=== PATIENT | male | born 1950 | race Caucasian/White ===

== ENCOUNTER → 2018-10-12 09:27 | Outpatient (CLI) | payer MEDICARE, OTHER, SELFPAY ==
[2018-10-12 08:36] VITALS: BMI 37.0
[2018-10-12 10:15] LABS: Absolute Lymphocyte Count 2.19 X10^3/ul (0.83-4.51); Absolute Neutrophil Count 5.7 X10^3/uL (2.0-7.7); Basophil# 0.06 X10^3/uL; Basophil% 0.7 % (0-1); Eosinophil# 0.18 X10^3/uL; Eosinophils% 2.1 % (0-5); Hematocrit 45.5 % (40-54); Hemoglobin 15.4 g/dl (13.0-16.5); Lymphocyte # 2.19 X10^3/ul (4.0); Lymphocyte % 25.1 % (19-41); Mean Corp Hgb Conc 33.8 g/gl (32-36); Mean Corpuscular Hgb 32.6 pg (27.0-32.0); Mean Corpuscular Volume 96.4 fL (80-94); Mean Platelet Vol. 12.3 fl (6.2-12.0); Monocyte# 0.58 X10^3/uL; Monocyte% 6.7 % (0-10); Neutrophil # 5.68 X10^3/uL (2.7-7.7); Neutrophil % 65.1 % (47-70); Platelet Count 205 K/mm3 (150-450); RBC Distribution Width CV 13.9 % (11.6-14.6); RBC Distribution Width SD 49.1 fl (35.1-43.9); Red Blood Count 4.72 M/mm3 (4.6-6.2); White Blood Count 8.7 K/mm3 (4.4-11.0)
[2018-10-12 10:22] LABS: POSITIVE COUNT NO; POSITIVE DIFFERENTIAL NO; POSITIVE MORPHOLOGY NO
[2018-10-12 10:54] LABS: AST(SGOT) 18 U/L (15-37); Alanine Aminotransfer ALT/SGPT 30 U/L (16-61); Albumin, Serum 3.7 g/dL (3.2-5.0); Alkaline Phosphatase 87 U/L (45-117); Anion Gap 9 (5-15); BUN 24 mg/dL (7-18); BUN/Creat Ratio 19.8 RATIO (10-20); Bilirubin, Direct 0.11 mg/dL (0.00-0.30); Chloride 108 mmol/L (98-107); Cholesterol 127 mg/dL (200); Creatinine, Serum 1.21 mg/dL (0.70-1.30); EST Glomerular Filtration Rate 63 mL/min (>60); Est Glom Filt Rate - Afr Amer 76 mL/min (>60); Globulin 3.8 g/dL (2.2-4.2); Glucose 100 mg/dL (74-106); High Density Lipoprotein 40 mg/dL; Potassium 4.3 mmol/L (3.5-5.1); Protein, Total 7.5 g/dL (6.4-8.2); Sodium Level 140 mmol/L (136-145); Thyroid Stim Hormone (TSH) 2.14 uIU/mL (0.358-3.74); Triglycerides 82 mg/dL; Very Low Density Lipoprotein 16 mg/dL (5-40)
== END ==
PROVIDERS: Referring Provider Physician Assistant Medical; Visit Provider Physician Assistant Medical
DX: I10 Essential (primary) hypertension (principal); E78.00 Pure hypercholesterolemia, unspecified; I48.0 Paroxysmal atrial fibrillation; I43 Cardiomyopathy in diseases classified elsewhere
CPT/HCPCS: 36415; 80053; 80061; 82248; 84443; 85025

== ENCOUNTER 2021-08-20 19:40 | Emergency (ER) | payer MEDICARE, OTHER, SELFPAY ==
[2021-08-20 19:41] VITALS: BP 125/112; PULSE 71; RESP 18; TEMP 37.1; O2SAT 95; BMI 25.0
--- NOTE | 2021-08-20 20:23 | EKG12_ITS ---
Test Reason : WEAKNESS Blood Pressure : / mmHG Vent. Rate : 149 BPM Atrial Rate : 159 BPM P-R Int : 000 ms QRS Dur : 132 ms QT Int : 314 ms P-R-T Axes : 000 076 -09 degrees QTc Int : 494 ms Atrial fibrillation Right bundle branch block T wave abnormality, consider inferior ischemia Abnormal ECG Confirmed by DILEEP COHEN, LYDIA ([id number]), editor continuity and script DAVON SHORT ([id number]) on 08/25/2021 8:52:53 AM Referred By: Confirmed By:BRENDA FALK MD
--- NOTE | 2021-08-20 20:23 | CT_ITS ---
We are attempting to reach an attending provider to discuss findings. An addendum with communication details will be sent when the communication is complete. EXAM: CT HEAD WITHOUT INTRAVENOUS CONTRAST CLINICAL INDICATION: Neuro deficit, acute, stroke suspected TECHNIQUE: Multiple axial images were obtained of the head without intravenous contrast. This CT exam was performed using one or more of the following dose reduction techniques: automated exposure control, adjustment of the mA and/or kV according to patient size, and/or use of iterative reconstruction technique. This report was created using [employer] report LiveProfile technology. COMPARISON: None. FINDINGS: BRAIN AND EXTRA-AXIAL SPACES: Diffuse cerebral edema overlying the left frontal parietal lobe and inferior left frontal lobe. Findings concerning for underlying mass. CT with IV or MRI with gadolinium is recommended to evaluate. No intra- or extra-axial hemorrhage. No evidence of acute infarct. There is preservation of the abrams/white matter interface. Posterior fossa structures are unremarkable. Ventricles are appropriate for age. No hydrocephalus. Basal cisterns are patent. BONES/JOINTS: Degenerative changes of the mandibular condyles. No discrete lytic or blastic abnormalities. SINUSES: Unremarkable as visualized. Clear. MASTOID AIR CELLS: Unremarkable. Clear. ORBITS: Visualized globes, extraocular muscles, optic nerves and retrobulbar fat appear unremarkable. called CT/STROKE Brain/Head without Cont IMPRESSION: Diffuse cerebral edema overlying the left frontal parietal lobe and inferior left frontal lobe. Findings concerning for underlying mass. CT with IV or MRI with gadolinium is recommended to evaluate. Electronically Signed: Nikita Rangel MD at 21:10 EDT ,
--- NOTE | 2021-08-20 20:25 | ED.VIS.STROK ---
HPI History of Present Illness Chief Complaint: Weakness Informant: patient and EMS Onset/Context/Timing Onset: Weeks (1-2) Context: Gradual Onset Timing: Continuous Quality and Location: Positive for Difficulty with Ambulation and - (Right foot drop) Current Severity: Moderate Maximum Severity: Moderate Worsened by: Unknown Relieved by: Nothing Associated Symptoms Associated Symptoms: Positive for Headache (Mild off-and-on bifrontal); Negative for Nausea, Vomiting and Chest Pain Narrative Narrative: Patient states he has had some redness and swelling gradual in onset without any obvious etiology of his right lower leg near his ankle, he has been progressing total for 2 weeks. For the last week or so he has had trouble lifting his foot, dorsiflexing it, and it also feels numb, the dorsum and plantar aspects. Now for the last 3 days because of this latter symptom, he is unable to stand or walk and has been having family come and help him now presents to the emergency department to have it all evaluated. He denies any generalized symptoms including fevers or chills. He states other than his right lower leg, he feels fine. [facility] Medical History (Updated 08/20/21 @ 23:[address] Charbel Parra MD) Abnormal stress test Cardiomyopathy in disease classified elsewhere Chronic diastolic heart failure Edema Essential (primary) hypertension Hyperlipidemia Nondependent alcohol abuse, continuous drinking behavior Paroxysmal atrial fibrillation Tobacco abuse Home Medications aspirin 325 mg tablet 325 mg PO QDAY tab 07/20/17 [History Last Taken Unknown] citalopram 20 mg tablet 20 mg PO DAILY #90 tab 12/15/19 [Rx Last Taken Unknown] lisinopril 10 mg tablet 10 mg PO QDAY #90 tab 11/25/20 [Rx Last Taken Unknown] carvedilol 25 mg tablet See Rx Instructions .ROUTE .COMPLEX #180 tab 11/28/20 [Rx Last Taken Unknown] flecainide 50 mg tablet See Rx Instructions .ROUTE .COMPLEX #180 tab 11/28/20 [Rx Last Taken Unknown] atorvastatin 40 mg tablet 40 mg PO QDAY #90 tab 01/30/21 [Rx Last Taken Unknown] Allergy/AdvReac Type Severity Reaction Status Date / Time No Known Allergies Allergy Verified 08/20/21 19:47 Family History Mother CAD (coronary artery disease) Diabetes Hypertension HLD (hyperlipidemia) Father Cancer Surgical History History of left heart catheterization (11/14/12) History of tonsillectomy Social History Smoking Status: Current every day smoker tobacco type: cigarettes alcohol intake: former substance use type: does not use caffeine: Yes Type: coffee what type of physical activity do you participate in: none seatbelt use: always do you feel safe at home: Yes ROS ROS ED Constitutional Constitutional ED: Denies chills or fever(s) Eyes Eyes: Denies change in vision or diplopia ENT ENT ED: Denies rhinorrhea or sore throat Cardiovascular Cardiovascular: Denies chest pain or palpitations Respiratory/Chest Respiratory/Chest: Denies cough or dyspnea Gastrointestinal Gastrointestinal: Denies abdominal pain, diarrhea, nausea or vomiting Genitourinary Genitourinary ED: Denies dysuria or hematuria Musculoskeletal Musculoskeletal: Reports extremity pain and other Details: Edema right lower lower extremity/foot ; Denies back pain or neck pain Integumentary Reports as per HPI, erythema and rash; Denies abscess Neurologic Neurologic: Reports as per HPI, numbness and weakness; Denies headache(s) Psychiatric Psychiatric: Denies anxiety or suicidal thoughts EXAM Physical Exam Const Vital Signs: 08/20/21 19:41 08/20/21 19:58 08/20/21 20:54 Temperature 98.7 F Temperature Source Temporal Pulse Rate 71 Respiratory Rate 18 Respiratory Effort Normal Non-Labored Blood Pressure 125/112 H Blood Pressure Mean 116 Pulse Ox 95 Oxygen Delivery Method Room Air Room Air 08/20/21 20:55 08/20/21 22:17 08/20/21 22:22 Temperature Temperature Source Pulse Rate 150 H 132 H Respiratory Rate 18 Respiratory Effort Blood Pressure 84/61 L Blood Pressure Mean 68 Pulse Ox 94 Oxygen Delivery Method Room Air 08/20/21 22:30 08/20/21 23:10 Temperature Temperature Source Pulse Rate 131 H Respiratory Rate 20 H Respiratory Effort Blood Pressure 90/54 L 104/70 Blood Pressure Mean 66 81 Pulse Ox 95 Oxygen Delivery Method Room Air Positive well nourished, well developed and unkempt General Appearance ED: unkempt, well developed and NAD HEENT Reports moist mucous membranes normocephalic and atraumatic Eyes PERRL and EOMs intact bilaterally Neck full ROM and supple Resp normal respiratory effort and clear to auscultation bilaterally Cardio regular rate, regular rhythm and no murmurs GI non-tender and non-distended Auscultation: normoactive bowel sounds Palpation: soft Back/Spine no CVA tenderness General Back: other FROM Extremity Extremity Narrative: Patient has what appears to be a localized cellulitis anterior lateral distal aspect of the right lower leg, some erythema is into the foot as well but not as indurated or deeply erythematous as where the small wound is on the leg above the ankle. This wound and the surrounding erythema is tender. There is no abscess or expressible discharge. No subcutaneous emphysema. General Extremety ED: Yes edema and tenderness; Negative for pulses abnormal General Extremity: edema right lower extremity moderate (Distal leg and into foot); Negative for pulses abnormal Neuro oriented x3 and CN's II-XII intact bilaterally Neuro Narrative: Patient is barely able to dorsiflex his right foot, and incompletely. There is decreased sensation in the right foot as well. Otherwise his neurologic exam is normal. Toes are downgoing bilaterally. No clonus. Normal reflexes otherwise. Sensorium / Orientation: awake and alert Psych Appearance: unkempt Skin no rashes or lesions noted and no wounds STROKE Vital Signs/Narrative: Vital Signs Temp Pulse Resp BP Pulse Ox 08/20/21 23:10 131 H 20 H 104/70 95 08/20/21 22:30 90/54 L 08/20/21 22:22 84/61 L 08/20/21 22:17 132 H 18 94 08/20/21 20:55 150 H 08/20/21 19:41 98.7 F 71 18 125/112 H 95 NIHSS Initial: 1a Level of Consciousness: 0 1b LOC Questions (Score 2 if aphasic/stupor): 0 1c LOC Commands (Only score 1st attempt): 0 2 Best Gaze (If aphasic, use reflexive mvmts.): 0 3 Visual: 0 4 Facial Palsy: 0 5 Motor Arm Right (UN = amputation/fusion): 0 5 Motor Arm Left: 0 6 Motor Leg Right: 0 6 Motor Leg Left: 0 7 Limb ataxia (Only + if out of proportion): 0 8 Sensory (Aphasia/stupor=0 or 1, coma=2): 1 9 Best Language: 0 10 Dysarthria (mute, coma=2, intubated=UN): 0 11 Extinction and Inattention (only scored if +): 0 Total Score: 1 MDM MDM MDM Narrative Medical decision making narrative: Septic work-up undertaken in addition to a CT of the head given the focal neurologic symptoms in his right lower extremity. CT shows cerebral edema on the left side of his brain without an obvious etiology, certainly this could be causing his foot drop. Patient is here and having these results when MRI is not available so I sent him for CT with contrast, it is consistent with a mass in the high parietal lobe. With the acute neurologic deficit that is associated with his massive edema, he was given IV Decadron, and he will require transfer since we do not have neurosurgery here. Initially when he presented, his blood pressure was 125 systolic with a pulse of 71, he has history of paroxysmal atrial fibrillation and during his visit when he went into rapid A. fib and it persisted, and his blood pressure dropped into the 80s. He was given fluids and is started coming up, and brennan to a systolic of 104 after 1.5 L of fluid, and his heart rate is in the 120s-130s. Therefore I gave him digoxin 250 mg IV bolus, he has not been on digoxin prior to this. He states clinically he does not feel his heart racing, and he feels fine just like he did before being in A. fib and he is keenly alert. My suspicion is that his hypotension is more related to his heart rate that it is his right leg infection, which I treated empirically with Ancef. Given the cerebral mass, I discussed with the patient and [facility]. Accepted by Dr. Chan, who accepted into the ICU and I also discussed with neurosurgery there who was agreeable to see him and advised MRI and metastatic work-up once he arrives. He also agreed with the Decadron 10 mg we gave him here. Lab Data Attestation: I reviewed the patient's lab results. Labs: Laboratory Results - last 24 hr 08/20/21 08/20/21 20:50 20:50 WBC 11.1 H RBC 4.81 Hgb 14.9 Hct 45.4 MCV 94.4 H MCH 31.0 MCHC 32.8 RDW Std Deviation 55.9 H RDW Coeff of [place] 16.0 H Plt Count 222 MPV 12.2 H Immature Gran % (Auto) 0.600 Neut % (Auto) 82.3 H Lymph % (Auto) 8.0 L [place] % (Auto) 7.7 Eos % (Auto) 1.0 Baso % (Auto) 0.4 Absolute Neuts (auto) 9.2 H Absolute Lymphs (auto) 0.89 Nucleated RBC % 0 Sodium 140 Potassium 3.9 Chloride 106 Carbon Dioxide 28.0 Anion Gap 6 BUN 16 Creatinine 1.19 Estim Creat Clear Calc 67.06 Est GFR (MDRD) Af Amer 77 Est GFR (MDRD) Non-Af 64 BUN/Creatinine Ratio 13.4 Glucose 115 H Calcium 9.6 Troponin I High Sens 8 Radiography Diagnostic Testing: Clinical Impression(s) from Imaging Studies Brain CT 08/20/21 20:23 IMPRESSION: Diffuse cerebral edema overlying the left frontal parietal lobe and inferior left frontal lobe. Findings concerning for underlying mass. CT with IV or MRI with gadolinium is recommended to evaluate. Electronically Signed: Nikita Rangel MD at 21:10 EDT , ADDENDUM: 08/20/217 IMPRESSION: Diffuse cerebral edema overlying the left frontal parietal lobe and inferior left frontal lobe. Findings concerning for underlying mass. CT with IV or MRI with gadolinium is recommended to evaluate. N.B. : The above Results were Read Back by Nikita Rangel MD to Dr. Aida MD, and understanding confirmed on 08/20/2021 21:10:44 (ET). Electronically Signed: Nikita Rangel MD at 21:10 EDT , Venous Duplex 08/20/21 20:32 IMPRESSION: There is no demonstrated deep venous thrombosis. Electronically Signed: Nikita Rangel MD at 21:33 EDT , Chest X-Ray 08/20/21 21:00 IMPRESSION: There are no acute findings. Electronically Signed: Nikita Rangel MD at 21:20 EDT , Brain CT 08/20/21 21:30 IMPRESSION: Enhancing left parietal mass with surrounding edema suggesting malignant neoplasm. No hemorrhage. Electronically Signed: Charbel Duncan MD at 23:26 EDT , EKG Initial EKG: Attestation: I personally reviewed and interpreted this EKG as follows: Interpretation: No Acute Injury Pattern, Atrial Fibrillation and RBBB Prior: Unchanged (With regards to RBBB) Stroke Documentation Questions Stroke Team Activated: No (Symptoms for 1 week or more) Was Patient considered for Endovascular Intervention?: No-CTA not indicated Discharge Plan Triage Chief Complaint: Weakness ED Provider: Charbel Parra Dx/Rx/DC Orders Clinical Impression: Cerebral mass, Foot drop, right, Cellulitis of leg, right, Paroxysmal atrial fibrillation with RVR Prescriptions: No Action aspirin 325 mg tablet 325 mg PO QDAY RF: 0 citalopram [Celexa] 20 mg tablet 20 mg PO DAILY Qty: 90 RF: 0 lisinopril 10 mg tablet 10 mg PO QDAY Qty: 90 RF: 3 flecainide 50 mg tablet See Rx Instructions .ROUTE .COMPLEX Qty: 180 RF: 3 carvedilol 25 mg tablet See Rx Instructions .ROUTE .COMPLEX Qty: 180 RF: 3 atorvastatin 40 mg tablet 40 mg PO QDAY Qty: 90 RF: 3 Primary Care Provider: Care Physician,No Primary Referrals: Care Physician,No Primary [Primary Care Provider] - Disposition Disposition: Acute Care Hospital Discharge Location: [facility]
--- NOTE | 2021-08-20 20:32 | US_ITS ---
STUDY: VENOUS DOPPLER ULTRASOUND - RIGHT LOWER EXTREMITY REASON FOR EXAM: Male, 70 years old. LEG PAIN AND SWELLING RT CALF SWELLING TECHNIQUE: Ultrasound evaluation of the deep vein system to include alexis-scale imaging and compression was performed. Alexis-scale imaging and Doppler sonographic evaluation, including duplex spectral analysis and qualitative color flow sonography, was performed. COMPARISON: None. FINDINGS: Common Femoral Vein: Normal compression, spontaneity and augmentation. Normal color Doppler. Common Femoral Vein/Greater Saphenous Junction: Normal compression, spontaneity and augmentation. Normal color Doppler. Superficial Femoral Proximal: Normal compression, spontaneity and augmentation. Normal color Doppler. Superficial Femoral Middle: Normal compression, spontaneity and augmentation. Normal color Doppler. Superficial Femoral Distal: Normal compression, spontaneity and augmentation. Normal color Doppler. Popliteal Vein: Normal compression, spontaneity and augmentation. Normal color Doppler. Posterior Tibial Vein: Normal compression, spontaneity and augmentation. Normal color Doppler. Peroneal Vein: Normal compression, spontaneity and augmentation. Normal color Doppler. There is no demonstrated deep venous thrombosis. US/Venous Duplex Imag/Limited/Uni IMPRESSION: There is no demonstrated deep venous thrombosis. Electronically Signed: Nikita Rangel MD at 21:33 EDT ,
[2021-08-20 20:55] VITALS: PULSE 150
--- NOTE | 2021-08-20 21:00 | RAD_ITS ---
STUDY: XR Chest 1 View 08/20/2021 8:51 PM REASON FOR EXAM: Male, 70 years old. CHEST PAIN Neuro deficit, acute, stroke suspected COMPARISON: None TECHNIQUE: XR Chest 1 View FINDINGS: There is no demonstrated pleural abnormality. Normal heart size. Normal mediastinum. Normal julián. Prominent appearing increased interstitial lung markings. Normal visualized pulmonary arteries. There is atherosclerotic calcification of the aortic arch with tortuosity. There are diffuse degenerative changes of the visualized thoracic spine. There is degenerative osteoarthritis of the bilateral shoulders. There is no demonstrated abnormality of the visualized soft tissue structures of the upper abdomen. RAD/Chest 1 View IMPRESSION: There are no acute findings. Electronically Signed: Nikita Rangel MD at 21:20 EDT ,
[2021-08-20 21:03] LABS: Absolute Lymphocyte Count 0.89 X10^3/uL (0.83-4.51); Absolute Neutrophil Count 9.2 X10^3/uL (2.0-7.7); Basophil# 0.04 X10^3/uL; Basophil% 0.4 % (0-1); Eosinophil# 0.11 X10^3/uL; Hematocrit 45.4 % (40-54); Hemoglobin 14.9 g/dL (13.0-16.5); Lymphocyte # 0.89 X10^3/ul (0.83-4.51); Mean Corp Hgb Conc 32.8 g/dL (32-36); Mean Corpuscular Volume 94.4 fL (80-94); Mean Platelet Vol. 12.2 fl (6.2-12.0); Monocyte# 0.86 X10^3/uL; Monocyte% 7.7 % (0-10); NRBC Flagged by Analyzer 0 % (0-5); Neutrophil # 9.15 X10^3/uL (2.7-7.7); Neutrophil % 82.3 % (47-70); Platelet Count 222 K/mm3 (150-450); RBC Distribution Width SD 55.9 fl (35.1-43.9); Red Blood Count 4.81 M/mm3 (4.6-6.2); White Blood Count 11.1 K/mm3 (4.4-11.0)
[2021-08-20 21:24] LABS: Anion Gap 6 (5-15); BUN 16 mg/dL (7-18); BUN/Creat Ratio 13.4 RATIO (10-20); Calcium,Total 9.6 mg/dL (8.5-10.1); Chloride 106 mmol/L (98-107); Creatinine, Serum 1.19 mg/dL (0.70-1.30); EST Glomerular Filtration Rate 64 mL/min (>60); Est Glom Filt Rate - Afr Amer 77 mL/min (>60); Estimated Creatinine Clearance 67.06 ml/min; Glucose 115 mg/dL (74-106); Potassium 3.9 mmol/L (3.5-5.1); Sodium Level 140 mmol/L (136-145); Troponin-I HS 8 pg/mL (3.0-78.0)
--- NOTE | 2021-08-20 21:30 | CT_ITS ---
STUDY: CT BRAIN WITH CONTRAST REASON FOR EXAM: Male, 70 years old. Brain swelling RADIATION DOSAGE (If Supplied By Facility): CTDIvol = ( 44.99 ) mGy, DLP = ( 897.35 ) mGycm TECHNIQUE: Transaxial CT imaging of the brain was performed post contrast administration. The examination was performed with intravenous administration of 50 CC ISOVUE 370. Individualized dose optimization techniques were used for this CT. COMPARISON: Earlier the same day FINDINGS: Normal soft tissue structures. Normal calvarium. There is mild cerebral atrophy with widening of the extra-axial spaces and ventricular dilatation. There is 2.5 x 1.5 cm peripherally enhancing central low density mass of the left parafalcine parietal lobe with surrounding edema and effacement of the sulci Normal basal ganglia and thalami. Normal brainstem. Normal cerebellum. There is no intracranial hemorrhage. There are no findings of an acute ischemic infarction. Normal visualized paranasal sinuses. CT/Brain/Head WITH Contrast IMPRESSION: Enhancing left parietal mass with surrounding edema suggesting malignant neoplasm. No hemorrhage. Electronically Signed: Charbel Duncan MD at 23:26 EDT Reading Location ID and State: [facility] / [place] , Service support ,
[2021-08-20 22:17] VITALS: PULSE 132; RESP 18; O2SAT 94
[2021-08-20 22:22] VITALS: BP 84/61
[2021-08-20] MEDS: 0.9% Normal Saline 1,000 ML 999 ML IV (22:22)
[2021-08-20 22:30] VITALS: BP 90/54
[2021-08-20 23:10] VITALS: BP 104/70; PULSE 131; RESP 20; O2SAT 95
[2021-08-20] MEDS: dexAMETHasone 10 MG/ML Vial IV (23:25)
[2021-08-20] MEDS: Cefazolin 1 GM/50 ML BAG IV (23:25)
[2021-08-20] MEDS: Digoxin 250 MCG/ML Ampul IV (23:26)
[2021-08-21 01:47] VITALS: BP 95/67; PULSE 113; RESP 17; O2SAT 99
[2021-08-21 02:39] VITALS: BP 96/67; PULSE 110; RESP 18; O2SAT 97
== END 2021-08-21 02:50 | disposition short-term general hospital (02) ==
PROVIDERS: Emergency Provider Emergency Medicine; Visit Provider Emergency Medicine
DX: G93.6 Cerebral edema (principal); I11.0 Hypertensive heart disease with heart failure; I50.32 Chronic diastolic (congestive) heart failure; I42.9 Cardiomyopathy, unspecified; I48.0 Paroxysmal atrial fibrillation; R26.2 Difficulty in walking, not elsewhere classified; M21.371 Foot drop, right foot; L03.115 Cellulitis of right lower limb; E78.5 Hyperlipidemia, unspecified; F17.210 Nicotine dependence, cigarettes, uncomplicated; Z79.82 Long term (current) use of aspirin; Z79.899 Other long term (current) drug therapy
CPT/HCPCS: 70450; 70460; 71045; 80048; 84484; 85025; 93005; 93971; 96361; 96365; 96375; 99285; J7030; J7040; J7050; Q9967; A4216

== ENCOUNTER 2021-09-02 15:38 | Inpatient (IN) | payer MEDICARE, OTHER, SELFPAY ==
[2021-09-02 15:54] VITALS: BMI 29.0
--- NOTE | 2021-09-02 16:20 | CASEMGMT ---
Social Work Met with patient for initial assessment. Introduced self and role. Pt wishes to have dtr as primary contact and granddaughter removed from face sheet. Received dtr's contact information and updated chart. Pt's responses were short and appeared agitated. Throughout further exploration, pt shared he was living in a trailer, but according to dtr and CHELSEA, it is in deplorable conditions, run down, unkept, unclean and pt cannot return there. Pt explained his 3 years ago and depression hit hard. He is still grieving and acknowledges he let himself and the house go. He has anxiety over where he is going live and what to do. 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 He does not have any further medical information at this time. Validated his feelings. Provided emotional and verbal support. Acknowledge's patient's responsibility for not keeping himself or home in good standards. Provided supportive listening. Grief and depression can be debilitating and hard to overcome. Offered ongoing support and assistance with grief, depression, housing and community resources. Explained Medicare benefit on RU and noted pt does not have a secondary insurance. Pt states he does, [employer], and provided SW with card. SW made copy and provided to registration to run for benefits/add to chart. During this time, his dtr called and put her on speakerphone to listen in and speak with this worker. Reiterated SW role, support, assistance with DC plans and housing. Dtr confirmed housing condition and pt cannot return. Explored Medicaid as an option, there are low income housing opportunities in [facility], and counseling resources. Pt agreed to get start on antidepressant to monitor during stay. Notified It was end of shift for this worker, politely excused self and assured pt SW will return tomorrow to continue discussing. Pt and dtr expressed great appreciation. Pt apologizes for rosemary demeanor in beginning. SW to continue to follow. Trisha Castellano, [employer]
[2021-09-02 16:50] VITALS: BP 119/77; PULSE 101; RESP 20; TEMP 36.5; O2SAT 92
[2021-09-02] MEDS: dexAMETHasone 4 MG Tablet PO (18:17)
[2021-09-02 20:14] VITALS: BP 119/77; PULSE 101; RESP 20; TEMP 36.5; O2SAT 92
[2021-09-02] MEDS: Flecainide 100 MG Tablet 50 MG PO (21:35)
[2021-09-02] MEDS: Sodium Chloride 1 GM Tablet PO (21:36)
[2021-09-02] MEDS: Ketoconazole Cream 1 APPLIC TOPICAL (21:36)
[2021-09-02] MEDS: Senna/Docusate Sodium 1 Tablet 2 TABLET PO (21:36)
[2021-09-02] MEDS: Nystatin Powder 15gm Bottle 1 APPLIC TOPICAL (21:37)
[2021-09-02] MEDS: Atorvastatin Calcium 40 MG Tablet PO (21:37)
[2021-09-02] MEDS: levETIRAcetam 1,000 MG Tablet 1000 MG PO (21:37)
[2021-09-02] MEDS: Carvedilol 25 MG Tablet PO (21:38)
[2021-09-02] MEDS: Menthol/Lanolin/Calamine/Znox 113 GM Tube 1 APPLIC TOPICAL (22:36)
[2021-09-03 05:46] LABS: Absolute Lymphocyte Count 0.84 X10^3/uL (0.83-4.51); Absolute Neutrophil Count 9.4 X10^3/uL (2.0-7.7); Basophil# 0.04 X10^3/uL; Basophil% 0.4 % (0-1); Hematocrit 44.1 % (40-54); Hemoglobin 15.1 g/dL (13.0-16.5); Lymphocyte # 0.84 X10^3/ul (0.83-4.51); Lymphocyte % 7.6 % (19-41); Mean Corp Hgb Conc 34.2 g/dL (32-36); Mean Corpuscular Hgb 31.1 pg (27.0-32.0); Mean Corpuscular Volume 90.9 fL (80-94); Mean Platelet Vol. 12.7 fl (6.2-12.0); Monocyte# 0.68 X10^3/uL; Monocyte% 6.1 % (0-10); NRBC Flagged by Analyzer 0 % (0-5); Neutrophil # 9.37 X10^3/uL (2.7-7.7); Neutrophil % 84.7 % (47-70); Platelet Count 163 K/mm3 (150-450); RBC Distribution Width CV 16.3 % (11.6-14.6); RBC Distribution Width SD 54.4 fl (35.1-43.9); Red Blood Count 4.85 M/mm3 (4.6-6.2); White Blood Count 11.1 K/mm3 (4.4-11.0)
[2021-09-03] MEDS: Sodium Chloride 1 GM Tablet PO ×3 (05:50→22:08)
[2021-09-03] MEDS: Pantoprazole Sodium 40 MG Tablet PO (05:50)
[2021-09-03] MEDS: Nystatin Powder 15gm Bottle 1 APPLIC TOPICAL ×2 (06:09→22:07)
[2021-09-03] MEDS: Menthol/Lanolin/Calamine/Znox 113 GM Tube 1 APPLIC TOPICAL ×2 (06:09→22:06)
[2021-09-03 06:25] LABS: ALB/GLOB Ratio 0.8 RATIO (0.9-2.4); AST(SGOT) 9 U/L (15-37); Alanine Aminotransfer ALT/SGPT 16 U/L (16-61); Albumin, Serum 2.4 g/dL (3.2-5.0); Alkaline Phosphatase 75 U/L (45-117); Anion Gap 5 (5-15); BUN 19 mg/dL (7-18); BUN/Creat Ratio 25.8 RATIO (10-20); Calcium,Total 8.1 mg/dL (8.5-10.1); Chloride 105 mmol/L (98-107); Creatinine, Serum 0.74 mg/dL (0.70-1.30); EST Glomerular Filtration Rate 111 mL/min (>60); Est Glom Filt Rate - Afr Amer 134 mL/min (>60); Estimated Creatinine Clearance 84.15 ml/min; Globulin 3.1 g/dL (2.2-4.2); Glucose 130 mg/dL (74-106); Phosphorus 3.2 mg/dL (2.5-4.9); Potassium 4.3 mmol/L (3.5-5.1); Protein, Total 5.5 g/dL (6.4-8.2); Sodium Level 135 mmol/L (136-145)
--- NOTE | 2021-09-03 09:23 | PCM.HP.STD ---
HPI - General General Date of Admission: 09/02/21 HPI Narrative JUAN DAVID GARCIA, is a 70 YO M with a PMH of PAF (controlled with Flecainide), tobacco dependence, hx of alcoholism (in recovery for 13 years now), hypertension, hyperlipidemia, BPH, chronic diastolic congestive heart failure and nonobstructive coronary artery disease on cardiac cath in 2012. Who presented to the ED at [facility] on 08/20/21 c/o weakness for the preceding 2 weeks, redness of the R leg and difficulty ambulating due to not being able to lift the R foot. He also stated the R foot had become numb. At the time he presented to the ED he could not stand without help. He appeared unkempt in the ED. On PE he appeared to have a mild cellulitis of the R ankle and foot but, he was unable to dorsiflex the R foot and there was decreased sensation. A NC CT brain was obtained to evaluate for stroke. The CT showed cerebral edema on the left side of his brain without an obvious etiology. MRI was not available so a CT contrast was ordered and it showed a mass in the high right parietal lobe. While in the ED he went into PAF and became hypotensive and he was treated with IV fluids and Digoxin. He had previously been diagnosed with PAF and had been on an anticoagulant but, the last cardiology note from [facility] stated he was maintaining SR on Flecainide. He was transferred from the ED to [facility] to be evaluated by neurosurgery for the cerebral mass. W/U at [facility] included a CT scan of the chest which showed multiple nodules, a 9X10 cm mass in the RLL with extension into the subcarinal region and the R hilum, extensive mediastinal adenopathy and lytic rib lesions. An ECHO showed a nl EF but, the R ventricle was significantly dilated. He was taken to the OR on 08/25/[address] Atkins for a left craniotomy and tumor excision. Frozen section was consistent with metastatic carcinoma. The final path report documented Metastatic adenocarcinoma with a pulmonary primary. Post operative complications included DVT in the L peroneal V and the L gastrocnemius V and hyponatremia. He was started on NaCl tabs. He was seen by therapy post operatively and acute inpt rehab was recommended. He was transferred to the acute inpt rehab unit at [facility] on 3/29/22 for 3 hours of therapy daily to restore function/independence at or near his prior level of function. He is going to follow up with Dr. Carmona from oncology, Dr. Steven from radiation oncology and with Dr. Atkins going forward. He was not on any pharmacologic DVT prophylaxis at the time of arrival at [facility]. All lab from this AM was personally reviewed. White blood cell count is 11.1. Hemoglobin is 15.1 with normochromic normocytic indices and platelets are within normal limits. There is a left shift present but, he is on Decadron. Sodium is borderline low at 135 and the potassium is 4.3. Serum bicarb is within normal limits. BUN is 19 with a creatinine of 0.74. Glucose is mildly elevated at 130 however he is on Decadron and this is most likely drug-induced. Phos and mag are within normal limits. LFTs are within normal limits and the CT scan of the abdomen done at [facility] showed a normal liver. [facility] Medical History (Updated 09/04/21 @ 18:[address] Perri Lockett, ) Abnormal stress test Alcoholism in remission Cardiomyopathy in disease classified elsewhere Chronic diastolic heart failure Depression Edema Essential (primary) hypertension Hyperlipidemia Paroxysmal atrial fibrillation Prostatic enlargement Home Medications atorvastatin 40 mg PO QHS 09/02/21 [History Last Taken Unknown] carvedilol 25 mg PO BID 09/02/21 [History Last Taken Unknown] citalopram [Celexa] 20 mg PO DAILY 09/02/21 [History Last Taken Unknown] dexamethasone 4 mg PO BID 09/02/21 [History Last Taken Unknown] flecainide 50 mg PO BID 09/02/21 [History Last Taken Unknown] folic acid 1 mg PO DAILY 09/02/21 [History Last Taken Unknown] ketoconazole [Nizoral] 1 applic TOPICAL QHS 09/02/21 [History Last Taken Unknown] levetiracetam [Keppra] 1,000 mg PO BID 09/02/21 [History Last Taken Unknown] lisinopril 10 mg PO QDAY 09/02/21 [History Last Taken Unknown] nystatin 1 applic TOPICAL BID 09/02/21 [History Last Taken Unknown] pantoprazole [Protonix] 40 mg PO DAILY 09/02/21 [History Last Taken Unknown] sodium chloride 1,000 mg PO TID 09/02/21 [History Last Taken Unknown] thiamine HCl (vitamin B1) [Vitamin B-1] 100 mg PO DAILY 09/02/21 [History Last Taken Unknown] Allergy/AdvReac Type Severity Reaction Status Date / Time No Known Allergies Allergy Verified 08/20/21 19:47 Family History Mother CAD (coronary artery disease) Diabetes Hypertension HLD (hyperlipidemia) Father Cancer Surgical History (Updated 09/03/21 @ 11:[address] Perri Lockett DO) History of left heart catheterization (11/14/12) History of tonsillectomy Status post craniotomy Social History (Updated 09/03/21 @ 11:[address] Perri Lockett DO) adopted: No household members: other details: spouse passed in 2016 and he has been very depressed since then housing: other details: [employer] number of children: 3 current occupational status: retired Smoking Status: Current every day smoker tobacco type: cigarettes Tobacco: How many years used: 45 quit status: quit date established counseling given: provider counseling alcohol intake: former details: He quit drinking 13-14 years ago when his gave him and ultimatum substance use type: does not use caffeine: Yes Type: coffee what type of physical activity do you participate in: none seatbelt use: always do you feel safe at home: Yes ROS Constitutional Constitutional: Reports change in weight and weight loss; Denies anorexia, chills, fatigue, fever(s), night sweats or weakness Eyes Eyes: Denies blurry vision, change in vision, eye pain or loss of vision ENT HEENT: Denies abnormal hearing, dysphagia, headache(s), hearing loss, nasal congestion or sore throat Cardiovascular Cardiovascular: Reports edema, orthostatic symptoms and weakness in extremities; Denies chest pain, dyspnea on exertion, lightheadedness, orthopnea, palpitations, paroxysmal nocturnal dyspnea, radiating jaw, neck or arm pain or syncope Respiratory/Chest Respiratory/Chest: Reports cough, wheezing and other Details: He felt the aerosols at [facility] helped his breathing. ; Denies dyspnea, shortness of breath at rest or shortness of breath with exertion Gastrointestinal Gastrointestinal: Denies abdominal pain, constipation, diarrhea, dyspepsia, hematemesis, hematochezia, nausea, taste impaired or vomiting Genitourinary Genitourinary: Denies dysuria, hematuria, nocturia, urinary frequency, urinary hesitancy, urinary incontinence or urinary urgency Musculoskeletal Musculoskeletal: Reports difficulty walking; Denies back pain, joint pain, joint swelling or neck pain Integumentary Integumentary: Reports dry skin, wounds and other Details: There is an incision on the top left of the skull from recent craniotomy. Neurologic Neurologic: Reports focal weakness and numbness; Denies confusion, disequilibrium, dizziness, headache(s), paresthesias, seizures or tremor(s) Psychiatric Psychiatric: Reports depression and other Details: Had not been taking Citalopram for a long time......was only taking his heart medications ; Denies anxiety, homicidal ideation or suicidal ideation Endocrine Endocrinology: Denies change in body appearance, polydipsia or polyuria Hematologic/Lymphatic Hematologic/Lymphatic: Reports easy bruising; Denies easy bleeding or lymphadenopathy Allergic/Immunologic Allergic/Immunologic: Denies rhinitis, eczemia or asthma Vital Signs Vital Signs Vital Signs: 09/02/21 16:50 09/02/21 20:14 09/02/21 21:51 Temperature 97.7 F L 97.7 F L Temperature Source Temporal Temporal Pulse Rate 101 H 101 H Pulse Strength Normal (2+) Respiratory Rate 20 H 20 H Respiratory Effort Respiratory Pattern Blood Pressure 119/77 119/77 Blood Pressure Mean 91 91 Blood Pressure Source Monitor Monitor Blood Pressure Position Semi-Fowlers Semi-Fowlers Blood Pressure Location Right Arm Right Arm Pulse Ox 92 92 Oxygen Delivery Method Room Air Room Air 09/02/21 21:52 Temperature Temperature Source Pulse Rate Pulse Strength Respiratory Rate Respiratory Effort Normal Non-Labored Respiratory Pattern Normal Blood Pressure Blood Pressure Mean Blood Pressure Source Blood Pressure Position Blood Pressure Location Pulse Ox Oxygen Delivery Method Room Air Weight Weight: 245 lb Body Mass Index (BMI) 29.0 Physical Exam Const alert, oriented x3 and no apparent distress Constitutional Narrative: appears tired and depressed HEENT normocephalic HEENT Narrative: Bone flap was replaced. The incision is healing well. Eyes PERRL, EOMs intact bilaterally, conjunctivae normal and no scleral icterus Neck supple and No nodes General: normal visual inspection and trachea midline; Negative for anterior neck swelling Chest Chest: symmetrical chest wall rise Resp normal respiratory effort and no use of accessory muscles Resp Narrative: He is not tachypneic at rest. He is not in any resp distress and has no conversational dyspnea. The BS's in the Lower half of the R lung posteriorly are very diminished with some wheezing and no crackles. The air exchange in the left lung is much better. Few scattered wheezes in the L lung. Effort and Inspection: able to speak in complete sentences; Negative for abnormal respiratory pattern, labored or grunting Cardio regular rate, regular rhythm, S1 normal heart sound, S2 normal heart sound, no murmurs, no rub and no gallops Cardio Narrative: Distant heart sounds. Peripheral Pulses: radial pulses present GI normal to inspection, nondistended, normoactive bowel sounds, soft to palpation and non-tender GI Narrative: No guarding with palpation Narrative: Urine is orange/concentrated. Bladder / Kidney Exam: No CVA tenderness Extremity normal capillary refill and no calf tenderness Extremity Narrative: trace ankle edema. No clubbing. No cyanosis. Skin General Skin Exam: no breakdown Rashes: no rashes Wounds: wounds noted Wound Narrative: The craniotomy incision is intact with no dehiscence, no erythema and no DC. Neuro oriented x3 and CN's II-XII intact bilaterally Neuro Narrative: The RLE is weak. He can raise it off the bed but, it drops to the bed within 5 sec. He has foot drop on the R. No facial asymmetry. UE's are strong. Numbness in the R foot only otherwise no sensory loss. Psych mental status grossly normal, thought process normal, cooperative, activity/motor behavior normal, denies homicidal ideation and denies suicidal ideation Appearance: grossly normal and appropriate Attitude: calm Activity / Motor Behavior: appropriate eye contact; Negative for psychomotor agitation, psychomotor slowing, fidgetting or restless Speech: normal speech Mood & Affect: depressed and flat affect Thought Process: No flight of ideas Thought Content: normal thought content Results Lab / Micro Data Result Diagrams: 09/03/21 05:33 09/03/21 05:33 Labs: Laboratory Results - last 24 hr 09/03/21 05:33: WBC 11.1 H, RBC 4.85, Hgb 15.1, Hct 44.1, MCV 90.9, MCH 31.1, MCHC 34.2, RDW Std Deviation 54.4 H, RDW Coeff of [place] 16.3 H, Plt Count 163, MPV 12.7 H, Immature Gran % (Auto) 1.200 H, Neut % (Auto) 84.7 H, Lymph % (Auto) 7.6 L, [place] % (Auto) 6.1, Eos % (Auto) 0.0, Baso % (Auto) 0.4, Absolute Neuts (auto) 9.4 H, Absolute Lymphs (auto) 0.84, Nucleated RBC % 0 09/03/21 05:33: Sodium 135 L, Potassium 4.3, Chloride 105, Carbon Dioxide 25.0, Anion Gap 5, BUN 19 H, Creatinine 0.74, Estim Creat Clear Calc 84.15, Est GFR (MDRD) Af Amer 134, Est GFR (MDRD) Non-Af 111, BUN/Creatinine Ratio 25.8 H, Glucose 130 H, Calcium 8.1 L, Phosphorus 3.2, Magnesium 2.0, Total Bilirubin 0.80, AST 9 L, ALT 16, Alkaline Phosphatase 75, Total Protein 5.5 L, Albumin 2.4 L, Globulin 3.1, Albumin/Globulin Ratio 0.8 L Assessment & Plan Assessment/Plan (1) Physical debility: (2) Brain neoplasm malignant: (3) Status post craniotomy: (4) Adenocarcinoma of lung: (5) Metastatic adenocarcinoma to bone: (6) Foot drop, right: (7) Depression: (8) Hyponatremia: (9) Hyperglycemia, drug-induced: (10) DVT (deep venous thrombosis): (11) Tobacco dependence: (12) Prostatic enlargement: (13) Essential (primary) hypertension: (14) Hyperlipidemia: QUALIFIERS: Hyperlipidemia type: pure hypercholesterolemia Qualified Code(s): E78.00 - Pure hypercholesterolemia, unspecified; E78.0 - Pure hypercholesterolemia (15) Paroxysmal atrial fibrillation: (16) Chronic diastolic heart failure: (17) Alcoholism in remission: PLAN: PLAN PT for gait stability OT for ADL's ST for evaluation Analgesics as needed Bowel protocol Fall precautions Assess for Anxiety/Depression - he was started on citalopram at the previous hospital however Citalopram can cause Hyponatremia and he is is hyponatremic.......he is 135 currently......if it drops again will likely DC SSRI and start a different antidepressant. He is also on Flecainide - will check an EKG to assess the QT interval. citalopram can also cause bleeding, joe in those on anticoagulants.......will check with the neurosurgeon to see when he can be placed on an anticoagulant for stroke prevention. GI prophylaxis with pantoprazole DVT prophylaxis - he is not currently on any pharmacologic DVT prophylaxis. He is not on SCDs. He has MAYKEL hose on. He had a venous ultrasound done at the previous hospital that showed distal clots in the Left leg and he tells me that he has not had blood clots in the past......Will get an US of the Left leg to make sure that the clot has not propagated and moved proximal to the knee. Follow up with neurosurgery, Dr. Carmona, Dr. Steven and his PCP following DC from [facility] AM lab including CMP, CBC, Mag and Phos - all personally reviewed. IS and Acapella He wants to live as long as he can and we discussed whether or not he would be a candidate for treatment. I told him there are new treatments for lung CA all the time and Dr. Carmona and Maurizio will discuss this with him at his first appt following DC from rehab. Right now his focus should be on healing the incision and getting stronger. Unit Exclusion This patient is an acute care inpatient being housed in the excluded unit because of capacity issues related to the disaster or emergency.: Yes Charges/Coding Visit Charges Inpatient E&M: 57528 Init Hosp L3
[2021-09-03 10:00] VITALS: BP 110/74; PULSE 90; RESP 20; TEMP 36.6; O2SAT 96
[2021-09-03] MEDS: Thiamine Hydrochloride 100 MG Tablet PO (10:01)
[2021-09-03] MEDS: dexAMETHasone 4 MG Tablet PO ×2 (10:01→18:05)
[2021-09-03] MEDS: Carvedilol 25 MG Tablet PO ×2 (10:01→22:07)
[2021-09-03] MEDS: Folic Acid 1 MG Tablet PO (10:01)
[2021-09-03] MEDS: Citalopram 20 MG Tablet PO (10:01)
[2021-09-03] MEDS: levETIRAcetam 1,000 MG Tablet 1000 MG PO ×2 (10:01→22:07)
[2021-09-03] MEDS: Flecainide 100 MG Tablet 50 MG PO ×2 (10:02→22:09)
[2021-09-03] MEDS: Senna/Docusate Sodium 1 Tablet 2 TABLET PO ×2 (10:02→22:08)
[2021-09-03] MEDS: Polyethylene Glycol 3350 17 GM PACKET PO (10:02)
[2021-09-03] MEDS: Lisinopril 10 MG Tablet PO (10:02)
--- NOTE | 2021-09-03 10:24 | VDLE_ITS ---
Reason For Study: Recent DVT LLE RIGHT LEFT CFV is compressible, spontaneous, phasic, GSV is normal. competent and demonstrates normal CFV is compressible, spontaneous, phasic, augmentation. competent, and demonstrates normal Procedure augmentation. This is a venous duplex using B-mode, color FV is compressible, spontaneous, phasic, flow and spectral Doppler. competent and demonstrates normal Exam performed portable in patient room. augmentation. A preliminary report was called and/or faxed POP V is compressible, spontaneous, phasic, to Inpatient Rehab. competent and demonstrates normal augmentation. T/P Trunk is compressible. PTV is compressible. Acute deep vein thrombosis is noted in the left GastrocV and PeroV. VL/Venous Duplex US, Unilateral Interpretation Summary Deep venous thrombosis left gastrocnemius and peroneal veins. Patent, compressible left great saphenous vein Normal flow patterns right common femoral vein Ordering Physician: Perri Lockett Performed By: Bella Morales RVT
[2021-09-03 10:25] VITALS: O2SAT 98
--- NOTE | 2021-09-03 11:48 | PCM.RU.PYE ---
Admission Information Primary Diagnosis:: Debility due Lung CA metastatic to the brain with recent craniotomy and excision of the mass. Persistent weakness, numbness and drop foot RLE. Status Changes from Prescreening?: No changes Identified Actual Problem List:: DVT, Skin Intergrity, Pain, ALteration in Cmfrt, Depression, Alteration in Nutrition, Mobility Impaired, Self Care Deficit, Alteration/ Air Exchange, Fluid Change-Dehydration and Alteration-Leisure Activ. Potential Problem List:: DVT, Bleeding, Infection, UTI, Aspiration, Falls, Skin Integrity and Depression Risk of Complications DVT: MAYKEL Aguirre and - (He had a DVT distal to the knee in the Left leg.......no pharmacologic DVT prophylaxis due to craniotomy. If venous US today shows no DVT will use SCD's. ) Bleeding: Monitor Lab Values, Nursing to Teach Precautions for anti-coagulation therapy., Wound, if applicable, to be assessed every shift. and Stroke patients assessed for lethargy or change in status. Infection: Clinical Staff to Monitor for S/S of infection: and S/S of infection include fever, redness, warmth, etc. Urinary Tract Infection: Monitor for frequency, burning, discomfort, or incontinence. and Nursing will obtain urine sample for urinalysis and C&S when ordered. Aspiration: Clinical staff will monitor for coughing, drooling, congestion., Speech will evaluate swallowing and dsyphasia. and Nursing will monitor patient swallowing during meals. Falls: Patient will be evaluated for Fall Precautions and Patient will be placed on Fall Precautions as indicated per protocol. Skin Breakdown: Nursing will assess skin daily using assessment tool. and Nursing will place on Skin Breakdown Precautions as indicated. Pain: Clinical staff will assess patient's pain level per protocol., Medications will be given, if needed, and the pain level reassessed. and Other methods: Massage, distraction, decrease stimulus, etc. used PRN. Plan of Care Patient requires physician specializing in physical medicine and rehab oversight to provide close medical supervision of rehab issues including: Pain Management, Sleep Problems, Bowel and Bladder, Medical and co-morbidity Management, DVT prophylaxis, Rehabilitation Leadership and Coordination of treatment team Patient needs Physical Therapy: For a minimum of 1 hour and At least 5 out of 7 days Patient needs Physical Therapy to improve:: Mobility, Strengthening, Transfers, Stretching, ROM, Endurance, Stairs, Gait and Balance Patient needs Occupational Therapy: For a minimum of 1 hour and At least 5 out of 7 days Patient needs Occupational Therapy to improve ADL's incl.: Eating, Grooming, Bathing, Dressing, Toileting, Toilet transfers, Community Reintegration, Higher functioning activities, Household tasks, Adaptive Equipment, Splinting and Other activities as determined Patient requires speech therapy: For a minimum of 1 hour and At least 5 out of 7 days Patient requires speech therapy for: Swallowing, Cognition, Language Skills and Compensatory Strategies Patient requires 24/ Rehabilitation Nursing for: Pain Issues, Identifying and preventing risk factors, Monitoring and reporting current medical conditions, Assisting with ambulation, transfer, and all ADL's, Teaching patients about disease process and medications, Family teaching, Providing safe environment, Bowel and Bladder Issues, Skin integrity and Medication Management Patient needs Flask Handler/ Case Management for: Discharge Planning, Arranging Home Equipment or Services and Family Interventions Patient needs Dietary and Nutrition Services for: Adequate Nutrition, Nutritional Supplements and Nutritional Education Goals Patient will remain: free from falls and or injury at time of discharge. Patient will perform bed mobility at: MOD I level of assist. Patient will complete transfers from bed to chair at: MOD I level of assist. Patient will ambulate: with LRD and - (150' with LRD ) Patient will complete upper body dressing at: - (Supervision) Patient will complete lower body dressing at: - (Set up level with assistive equipment and standby assistance for good safety awareness) Patient will complete toileting at: - (He will progress to demonstrate transfer on and off an elevated commode and toileting tasks at standby assist with good safety awareness) Patient will perform bathing at: - (he will demo tub/shower transfers at CGA-min Assist) Patient will complete grooming at: MOD I level of assist. Patient will complete home management skills at: MOD I level of assist. Patient will achieve: - (1 curb step and 4 regular steps with 2 HR's at CGA. ) Patient will have pain level of: of 3 or less Patient's skin will: remain intact Patient will receive: adequate nutrition. Discharge Planning Pt Prognosis for Sig. Practical Improv. w/in Reasonable Time: Good Estimated Length of stay (days): 28 Anticipated D/C Destination: TBD Was Preadmission Assessment Accurate?: Yes
--- NOTE | 2021-09-03 16:03 | CHAPLAIN ---
Type of Pastoral Visit _x__ Initial Visit ___ Follow-up Visit ___ On-call Visit ___ General Patient Visit ___ Spiritual Assessment ___ Family Conference ___ Bereavement ___ Rapid Response ___ Code Blue ___ Other (describe below) Pastoral Care Referral From _x__ Patient ___ Family ___ Nurse ___ Physician ___ Community Center Coordinator ___ Tinning Equipment Tender ___ Other (describe below) Sacrament/Intervention _x__ Active listening ___ Anointing ___ Islam ___ Bereavement ___ Communion _x__ Cheryl exploration ___ _x__ Life review _x__ Prayer ___ Reconciliation ___ Sacrament of Sick _x__ Supportive presence ___ Wedding ___ Other (describe below) Pastoral Comments patient very welcoming to spiritual care and open conversation about his illness, the of spouse and resulting grief of his loss, cheryl struggles, and family dynamics and concerns; pt states he wants to get closer to God again and knows that God is with him; patient requests prayer and more visits from this solicitor patent
--- NOTE | 2021-09-03 16:41 | CASEMGMT ---
Addendum entered by Trisha Castellano 09/04/21 14:54: Referral made to [facility]. Order entered. Original Note: Social Work Returned to follow up with patient. Patient stated he had spoken to the DrTejal this morning and was able to get more information on his cancer and medical diagnoses. Pt explained his lung cancer is treatable and he was relieved to hear that and has elected for that treatment. Offered and explained Palliative Care. Pt agreeable to referral. Pt stated he also had a good visit with the catering driver. Discussed further with pt about his depression, the loss of his , the change in his daily habits. Pt expressed great motivation for change moving forward, wanting to put the money into fixing his trailer to return. He states he has memories there with his and put money into when they bought it 5 years ago. Validated pt's feelings. Commended pt for taking responsibility for his past choices, motivation to change and improve. Discussed this hospitalization being a blessing in disguise and getting a second chance. Provided ongoing supportive listening and verbal support. Explored steps to take to get house back in good condition. Contacting contractors to get estimates for home improvements, provided resources for low income housing options in [place]. Pt acknowledges not being able to return to his home in the short term, but would like to have a goal to return in the future. Validated goals and forward thinking. Discussed finances for realistic goals or Medicaid options. Pt will be over resources currently for [place], but after spending some money on rental housing or home improvements, if he wants to apply for SNF or community FRANKIE, he can. Provided application to have. Pt thanked this worker for support and visit. Will Team tomorrow. SW to continue to follow. MARIBEL Nathan
[2021-09-03 18:55] VITALS: PULSE 88; RESP 18; O2SAT 96
[2021-09-03] MEDS: Ipratropium/Albuterol Sulfate 3 ML AMPUL.NEB INHALATION (18:55)
[2021-09-03 19:35] VITALS: BP 112/77; PULSE 97; RESP 16; TEMP 36.7; O2SAT 100
[2021-09-03] MEDS: Atorvastatin Calcium 40 MG Tablet PO (22:07)
[2021-09-03] MEDS: Ketoconazole Cream 1 APPLIC TOPICAL (22:07)
[2021-09-04] MEDS: Sodium Chloride 1 GM Tablet PO ×3 (04:59→22:24)
[2021-09-04] MEDS: Pantoprazole Sodium 40 MG Tablet PO (04:59)
[2021-09-04 06:32] VITALS: PULSE 85; RESP 16; O2SAT 98
[2021-09-04] MEDS: Ipratropium/Albuterol Sulfate 3 ML AMPUL.NEB INHALATION ×2 (06:32→19:51)
[2021-09-04] MEDS: Flecainide 100 MG Tablet 50 MG PO ×2 (07:50→22:23)
[2021-09-04] MEDS: levETIRAcetam 1,000 MG Tablet 1000 MG PO ×2 (07:51→22:25)
[2021-09-04] MEDS: Senna/Docusate Sodium 1 Tablet 2 TABLET PO ×2 (07:51→22:24)
[2021-09-04] MEDS: Carvedilol 25 MG Tablet PO ×2 (07:51→22:25)
[2021-09-04] MEDS: Thiamine Hydrochloride 100 MG Tablet PO (07:51)
[2021-09-04] MEDS: Folic Acid 1 MG Tablet PO (07:51)
[2021-09-04] MEDS: Polyethylene Glycol 3350 17 GM PACKET PO (07:51)
[2021-09-04] MEDS: Lisinopril 10 MG Tablet PO (07:51)
[2021-09-04] MEDS: dexAMETHasone 4 MG Tablet PO ×2 (07:51→16:57)
[2021-09-04] MEDS: Citalopram 20 MG Tablet PO (07:51)
[2021-09-04] MEDS: Menthol/Lanolin/Calamine/Znox 113 GM Tube 1 APPLIC TOPICAL ×2 (07:57→22:26)
[2021-09-04] MEDS: Nystatin Powder 15gm Bottle 1 APPLIC TOPICAL ×2 (07:57→22:24)
[2021-09-04 08:40] VITALS: BP 106/75; PULSE 91; RESP 18; TEMP 36.6; O2SAT 95
--- NOTE | 2021-09-04 10:10 | NURSING ---
spoke with ADARSH Gudino at [facility] office of Dr Atkins ([phone]) in regards to when ok to start lovenox due to postive DVT to LLE per Dr Lockett's request. RN states will notify Dr Atkins for orders/recommendations. awaiting return phone call.
--- NOTE | 2021-09-04 10:47 | NURSING ---
ADARSH Gudino from Dr Atkins's office states MD croft for patient to be started on lovenox today d/t current DVT; Dr Lockett updated.
--- NOTE | 2021-09-04 14:08 | CASEMGMT ---
Social Work IDT met with patient and dtr for Team meeting. Discussed patient's progress in PT/OT/ST and nursing. Pt making progress. Explained Medicare approved 19 days with EDC 09/21. Discussed patient goal for DC from RU is SNF until pt and family can decide on community living. ST offered to assist pt with making phone calls to resources provided by this worker. Explained further about SNF Medicare benefit and financial liability with copays. Pt still believes he has a secondary insurance - possibly through [employer], as automatic withdrawals are made each month for that insurance coverage. Suggested to call that company to inquire if it is a life insurance policy or secondary, and specifically asks if it covers SNF copay coverage. Pt and dtr agreed. Provided in network SNF list with Medicare data to choose 3 facilities for this worker to refer to. Dtr wants [facility] first choice and will choose others. SW will wait until closer to DC to make referrals for highest level of functioning. Provided resources for [facility] to call their IRE hotline to inquire about housing/community assistance. SW to continue to follow for DC plans and support. Trisha Castellano, VOCATIONAL SERVICES SPECIALIST PROCUREMENT BUYER
--- NOTE | 2021-09-04 15:51 | PCM.PROGNOTE ---
Subjective Subjective Pat was seen on team rounds today. His daughter Cherelle was present in the room. Afebrile VSS Maintaining appropriate oxygen saturation on RA Oral intake is good.....better than at the previous hospital. Discussed with nursing - no problems that need addressed Reviewed the PT/OT/ST notes He was able to bend the R ankle a little today which is an improvement over admission. Medication list reviewed. Binta denies CP, SOB, lightheadedness, cephalgia, change in vision, dysuria, nausea/vomiting/abdominal pain/reflux, constipation. He tells me that his breathing has improved with the addition of the Duoneb aerosols to the drug regimen. I reviewed the dietitian's note and although the patient has inadequate energy intake with increased nutrient needs due to recent surgery and metastatic disease he is not malnourished at the present time. He had been losing wt prior to the recent surgery but, he does not know how much he has lost......all his pants are too big and he has had to take his belt in. The venous US was reviewed and confirms the thrombosis in the Gastroc and peroneal VV in the left leg. No propagation above the knee.......today Pat tells me that he had venous thrombosis in the past (prior to vein stripping) and he had a filter placed. Neurosurgery says it is OK to fully anticoagulate at this time. Objective Data Objective Data Vital Signs: Vital Signs Temp Pulse Resp BP Pulse Ox 97.8 F 91 18 106/75 95 09/04/21 08:40 09/04/21 08:40 09/04/21 08:40 09/04/21 08:40 09/04/21 08:40 Oxygen Delivery Method Room Air Weight: 244 lb 15.995 oz Body Mass Index (BMI) 29.0 Intake & Output: Intake and Output for Last 24 Hours 09/02/21 09/03/21 09/04/21 23:59 23:59 23:59 Intake Total 200 / 200 1620 / 1620 780 / 780 Output Total 400 / 400 1025 / 1025 600 / 600 Balance -200 / -200 595 / 595 180 / 180 Lab / Micro Data Result Diagrams: 09/03/21 05:33 09/03/21 05:33 Radiography Diagnostic Testing: Radiology Impression Venous Doppler Study 09/03/21 10:24 Interpretation Summary Deep venous thrombosis left gastrocnemius and peroneal veins. Patent, compressible left great saphenous vein Normal flow patterns right common femoral vein Ordering Physician: Perri Lockett Performed By: Bella Morales RVT Physical Exam Const alert, oriented x3 and no apparent distress Constitutional Narrative: Lying in bed for rounds and appears comfortable. General Appearance: cooperative Resp normal respiratory effort Resp Narrative: Better air exchange today and he is not currently wheezing. The BS's in the R base are still very diminished. No crackles, not tachypneic and no accessory muscle use. Able to speak in complete sentences. Cardio regular rate, regular rhythm and no gallops GI normal to inspection, nondistended, normoactive bowel sounds, soft to palpation and non-tender Extremity Negative for no calf tenderness General Extremity: Negative for clubbing, cyanosis or edema Neuro CN's II-XII intact bilaterally and no sensory deficits noted Neuro Narrative: weakness in the RLE with R foot drop. Motor Exam: general weakness Psych thought process normal Psych Narrative: He tells me that he is sleeping well the past few nights. His appetite has improved. He makes good eye contact. He has a depressed attitude. Appearance: appropriate Assessment & Plan Assessment/Plan (1) Depression: (2) Prostatic enlargement: (3) Foot drop, right: (4) Status post craniotomy: (5) DVT (deep venous thrombosis): (6) Hyperglycemia, drug-induced: (7) Hyponatremia: (8) Adenocarcinoma of lung: (9) Tobacco dependence: (10) Essential (primary) hypertension: (11) Hyperlipidemia: QUALIFIERS: Hyperlipidemia type: pure hypercholesterolemia Qualified Code(s): E78.00 - Pure hypercholesterolemia, unspecified; E78.0 - Pure hypercholesterolemia (12) Paroxysmal atrial fibrillation: (13) Chronic diastolic heart failure: (14) Brain neoplasm malignant: (15) Physical debility: (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 Both Cherelle and Binta feel overwhelmed. We discussed his home situation and he recognizes that if he is going to be able to go home to the [facility] some changes have to be made first so he has a safe place to live. He is willing to go to an SNF for continued therapy after DC from rehab. He would like to go to the [facility] and the SW will contact them. We talked about radiation and chemo/immuno therapy and how it can make you very fatigued. He realizes that he may need help at home and he and Cherelle are considering his options. 2. Will start Lovenox 40 mg SQ daily for now and if he has no adverse bleeding within 4-5 days will likely start Eliquis for PAF and stroke prevention. 3. Will make appts for him to follow up with Dr. Carmona and Dr. Steven the week of September 22 to discuss tx for his cancer. He will also need to get a PCP and the SW will give him a list to choose from. 4. We discussed a palliative care consult and I explained to Binta and Cherelle what palliative care is. He is agreeable to having a consult with palliative care while in rehab and I assured Cherelle that they can follow him while he is in SNF also. They requested Tamara Tucker if possible. 5. CODE STATUS: Discussed code status at length with Binta and Cherelle including the difference between FULL CODE, DNR CCA and DNR CC status. All questions were answered. An order for full code was entered into the computer. A total of 20 minutes face to face time was devoted to advanced care planning. Cherelle is his Healthcare POA and the SW took care of this. I also suggested Cherelle be his financial POA in the event that she has to manage his bank accounts and pay his bills......the SW will discuss this process with them. 6. Continue therapy. 7. Continue the aerosols - will likely DC on aerosols QID since he has a large mass in the R lung along with airway compression as well as suspected COPD. Will also need a rescue inhaler. Charges/Coding Visit Charges Inpatient E&M: 31975 Subs Hosp L3
[2021-09-04 19:23] VITALS: BP 113/69; PULSE 58; RESP 16; TEMP 36.5; O2SAT 96
[2021-09-04 19:51] VITALS: PULSE 89; RESP 16
[2021-09-04] MEDS: Ketoconazole Cream 1 APPLIC TOPICAL (22:24)
[2021-09-04] MEDS: Atorvastatin Calcium 40 MG Tablet PO (22:25)
[2021-09-05] MEDS: Sodium Chloride 1 GM Tablet PO ×3 (05:27→20:25)
[2021-09-05] MEDS: Pantoprazole Sodium 40 MG Tablet PO (05:27)
[2021-09-05] MEDS: Enoxaparin 40 MG/0.4 ML Syringe SC (05:55)
[2021-09-05 06:37] VITALS: PULSE 88; RESP 16; O2SAT 95
[2021-09-05] MEDS: Ipratropium/Albuterol Sulfate 3 ML AMPUL.NEB INHALATION ×3 (06:37→19:10)
[2021-09-05] MEDS: Senna/Docusate Sodium 1 Tablet 2 TABLET PO ×2 (08:20→20:24)
[2021-09-05] MEDS: Flecainide 100 MG Tablet 50 MG PO ×2 (08:20→20:25)
[2021-09-05] MEDS: Lisinopril 10 MG Tablet PO (08:20)
[2021-09-05] MEDS: Folic Acid 1 MG Tablet PO (08:20)
[2021-09-05] MEDS: dexAMETHasone 4 MG Tablet PO ×2 (08:21→16:57)
[2021-09-05] MEDS: Citalopram 20 MG Tablet PO (08:21)
[2021-09-05] MEDS: Carvedilol 25 MG Tablet PO ×2 (08:22→20:23)
[2021-09-05] MEDS: levETIRAcetam 1,000 MG Tablet 1000 MG PO ×2 (08:22→20:23)
[2021-09-05] MEDS: Thiamine Hydrochloride 100 MG Tablet PO (08:22)
[2021-09-05] MEDS: Polyethylene Glycol 3350 17 GM PACKET PO (08:24)
[2021-09-05 09:00] VITALS: BP 101/66; PULSE 79; RESP 16; TEMP 36.8; O2SAT 96
--- NOTE | 2021-09-05 09:52 | EKG12_ITS ---
Test Reason : A-FIB Blood Pressure : / mmHG Vent. Rate : 092 BPM Atrial Rate : 079 BPM P-R Int : 000 ms QRS Dur : 148 ms QT Int : 392 ms P-R-T Axes : 000 033 -03 degrees QTc Int : 484 ms Atrial fibrillation Right bundle branch block Abnormal ECG Confirmed by DINORA COHEN, GAYE ([id number]), science editor NAHUM HERNANDEZ ([id number]) on 09/09/2021 1:15:06 PM Referred By: RJ Confirmed By:GAYE FARIAS MD
[2021-09-05] MEDS: Menthol/Lanolin/Calamine/Znox 113 GM Tube 1 APPLIC TOPICAL ×2 (10:45→20:22)
[2021-09-05] MEDS: Nystatin Powder 15gm Bottle 1 APPLIC TOPICAL ×2 (10:45→20:24)
[2021-09-05] MEDS: Magnesium Hydroxide 30 ML UDC PO (10:49)
--- NOTE | 2021-09-05 13:06 | CON.PCM.PA_ITS ---
Assessment & Plan Assessment/Plan (1) ZELAYA (dyspnea on exertion): (2) Constipation: QUALIFIERS: Constipation type: unspecified constipation type Qualified Code(s): K59.00 - Constipation, unspecified (3) Physical debility: (4) Metastatic adenocarcinoma to bone: (5) Adenocarcinoma of lung: QUALIFIERS: Laterality: right Qualified Code(s): C34.91 - Malignant neoplasm of unspecified part of right bronchus or lung (6) Brain neoplasm malignant: QUALIFIERS: Malignant neoplasm of brain location: parietal lobe Qualified Code(s): C71.3 - Malignant neoplasm of parietal lobe (7) Depression: QUALIFIERS: Depression Type: major depressive disorder Major depression recurrence: unspecified whether recurrent Active/Remission status: currently active Major depression episode severity: unspecified Qualified Code(s): F32.9 - Major depressive disorder, single episode, unspecified (8) Foot drop, right: (9) Status post craniotomy: (10) DVT (deep venous thrombosis): QUALIFIERS: DVT location: lower extremity Affected thrombotic vein of extremity: unspecified vein of extremity Chronicity: unspecified Laterality: unspecified laterality Qualified Code(s): I82.409 - Acute embolism and thrombosis of unspecified deep veins of unspecified lower extremity (11) Hyponatremia: (12) Chronic diastolic heart failure: PLAN: 70-year-old male with newly diagnosed metastatic adenocarcinoma with primary being lung, metastases include brain and now s/p craniotomy. Also lytic rib lesions, extensive mediastinal adenopathy, and extension of mass into the subcarinal region in the right hilum. 1. Dyspnea on exertion: Mild, he has been doing breathing treatments which helped significantly. He has a long history of tobacco abuse, probable COPD but no testing. He is not requiring any oxygen supplementation and his lungs are sounding clear. Would just monitor for now 2. Constipation: Fairly new issue for patient. He is ordered Mary-Colace 2 tabs twice daily scheduled, MiraLAX 17 g daily, as needed milk of mag, and as needed Dulcolax suppository. Nursing has given him a cocktail of MOM, orange juice, prune juice. He states he was not able to drink the entire mixture. Abdomen is soft. Monitor and adjust meds as indicated. We could add a PRN mary-colace up to 2 additional tabs per day and/or prn enema. 3. Physical debility: He is in the rehab unit undergoing intensive therapy, slowly improving. Plan is for discharge to [facility]? We will continue to follow 4. Adenocarcinoma of lung with mets to brain/bone: Brain mass was excised [facility]. Patient is doing well, incision healing nicely. He remains on dexamethasone for the cerebral edema and that is being weaned. He is not having any discomfort associated with his metastases. Plan is for consult to Dr. Carmona and Dr. Steven once patient is discharged from the rehab. 5. Depression/foot drop/chronic diastolic CHF/hyponatremia/DVTs: Complicates ov erall care and management, recovery, prognosis. Attending has patient on citalopram, switched from sertraline which she has not really tolerated in the past. His 4 years ago and he went downhill after that. We will follow him for depression as an outpatient and monitor that closely and make med adjustments when indicated. Patient apparently has IVC filter so was just started on Lovenox in place of oral anticoagulation. Thank you for the opportunity to participate in this patient's care, please do not hesitate to contact [facility] with any further questions or concerns, direct line is [phone]. We will follow up after discharge and will discuss palliative services further at that time. Contact information left with the patient. Please let us know when patient is going to be discharged from the rehab unit so we can ensure proper follow-up as an outpatient. Thank you! Greater than 50% of F2F visit dedicated to education and counseling of palliative care services, medications, comorbid conditions and potential assistance with management, plan of care moving forward, as well as coordination of care and collaboration with other providers. Start time: 1330 End time: 1409 HPI Consult Data Date of Consult: 09/05/21 HPI Narrative HPI Narrative: JUAN DAVID GARCIA, is a 70 M who originally presented to [facility] 08/20/2021 with lower extremity cellulitis, foot drop, progressing to inability to ambulate. CT the brain showed cerebral edema, mass in the high right parietal lobe, transferred to tertiary care center for further evaluation and management. Patient has history of PAF and hypertension, follows with cardiology. He then had a CT of the chest which showed multiple nodules, 9 x 10 cm mass right lower lobe with extension and subcarinal region in the right hilum, extensive mediastinal adenopathy and lytic rib lesions. He underwent left craniotomy and tumor excision 08/25/2021, findings were consistent with metastatic adenocarcinoma with primary pulmonary. He had some hyponatremia and also developed DVTs. Patient eventually stabilized and was transferred to the rehab unit for further strengthening and rehabilitation. Patient has been placed on citalopram for anxiety and depression, however is hyponatremic so they are monitoring that. He is not currently anticoagulated for his DVTs or A. fib status post craniotomy. Patient lives alone. He lost his about 4 years ago and has been dealing with significant depression. He currently lives in a trailer which is uninhabitable at this time. Case management is working with him for placement to a facility and/or assistance for housing. He has a daughter, Cherelle who is supportive. Pat denies any current nausea or vomiting. He is constipated and was given a mixture of orange juice, milk of mag, and prune juice. He denies any shortness of breath at rest but does have some mild dyspnea on exertion. No chest pain or palpitations. He is somewhat tachycardic at rest. Patient is doing well with therapy and is able to elevate the right foot little more than previous. Denies any headaches. Patient does have some neuropathy to the lower extremities. States he is tolerating antidepressant. Patient optimistic and anxious to hear game plan for his cancer. Patient follows with [facility] for cardiology care for his nonischemic cardiomyopathy, atrial fibrillation, and mitral valve regurgitation. He was last seen by Rony Larios NP 06/24/2020 via telehealth. Plan is for patient to be discharged to a facility until other living arrangements can be made. We will continue to follow as an outpatient. [facility] Medical History Abnormal stress test Alcoholism in remission Cardiomyopathy in disease classified elsewhere Chronic diastolic heart failure Depression Edema Essential (primary) hypertension Hyperlipidemia Paroxysmal atrial fibrillation Prostatic enlargement Home Medications atorvastatin 40 mg PO QHS 09/02/21 [History Last Taken Unknown] carvedilol 25 mg PO BID 09/02/21 [History Last Taken Unknown] citalopram [Celexa] 20 mg PO DAILY 09/02/21 [History Last Taken Unknown] dexamethasone 4 mg PO BID 09/02/21 [History Last Taken Unknown] flecainide 50 mg PO BID 09/02/21 [History Last Taken Unknown] folic acid 1 mg PO DAILY 09/02/21 [History Last Taken Unknown] ketoconazole [Nizoral] 1 applic TOPICAL QHS 09/02/21 [History Last Taken Unknown] levetiracetam [Keppra] 1,000 mg PO BID 09/02/21 [History Last Taken Unknown] lisinopril 10 mg PO QDAY 09/02/21 [History Last Taken Unknown] nystatin 1 applic TOPICAL BID 09/02/21 [History Last Taken Unknown] pantoprazole [Protonix] 40 mg PO DAILY 09/02/21 [History Last Taken Unknown] sodium chloride 1,000 mg PO TID 09/02/21 [History Last Taken Unknown] thiamine HCl (vitamin B1) [Vitamin B-1] 100 mg PO DAILY 09/02/21 [History Last Taken Unknown] Allergy/AdvReac Type Severity Reaction Status Date / Time No Known Allergies Allergy Verified 08/20/21 19:47 Family History Mother CAD (coronary artery disease) Diabetes Hypertension HLD (hyperlipidemia) Father Cancer Surgical History History of left heart catheterization (11/14/12) History of tonsillectomy Status post craniotomy Social History adopted: No household members: other details: spouse passed in 2017 and he has been very depressed since then housing: other details: [facility] number of children: 3 current occupational status: retired Smoking Status: Current every day smoker tobacco type: cigarettes Tobacco: How many years used: 45 quit status: quit date established counseling given: provider counseling alcohol intake: former details: He quit drinking 13-14 years ago when his gave him and ultimatum substance use type: does not use caffeine: Yes Type: coffee what type of physical activity do you participate in: none seatbelt use: always do you feel safe at home: Yes ROS ROS Narrative Review of systems otherwise negative from a constitutional, HEENT, respiratory, cardiovascular, GI, genitourinary, musculoskeletal, skin, neurologic, psychiatric and hematologic system unless stated above. Physical Exam Const alert, oriented x3 and no apparent distress General Appearance: cooperative, comfortable and well kempt Nutritional Appearance: cachectic HEENT normocephalic and head/scalp atraumatic Neck supple General: trachea midline Resp normal respiratory effort and no use of accessory muscles Effort and Inspection: able to speak in complete sentences and symmetric chest movement Auscultation: clear to auscultation bilaterally and diminished lung sounds Cardio regular rhythm, S1 normal heart sound and S2 normal heart sound Rate: tachycardic GI normal to inspection, nondistended, normoactive bowel sounds Extremity no clubbing, cyanosis or edema Extremity Narrative: Right lower extremity with Leoncio wrap Skin Skin Narrative: Incision top of head, appears to be healing nicely Neuro oriented x3, CN's II-XII intact bilaterally and moves all extremities Neuro Narrative: Weakness right lower extremity, some foot drop. Ambulating with walker Psych mental status grossly normal Attitude: calm and engaged Activity / Motor Behavior: appropriate eye contact Speech: normal speech Attention / Concentration: attention grossly intact Insight: insight good
[2021-09-05 14:20] VITALS: PULSE 85; RESP 18; O2SAT 95
--- NOTE | 2021-09-05 18:46 | NURSING ---
Patient in good spirits but at times affect can be flat. Patient motivated today to do better and shaved and groomed self in the bathroom. Continent and uses urinal. MOM given for constipation with prune juice, no results so far. No c/o discomfort. BS x 4.
[2021-09-05 19:10] VITALS: PULSE 78; RESP 18; O2SAT 94
[2021-09-05 19:22] VITALS: BP 100/67; PULSE 48; RESP 18; TEMP 36.3; O2SAT 92
[2021-09-05 19:56] VITALS: RESP 16; O2SAT 96
[2021-09-05] MEDS: Atorvastatin Calcium 40 MG Tablet PO (20:23)
[2021-09-05] MEDS: Ketoconazole Cream 1 APPLIC TOPICAL (20:24)
[2021-09-06] MEDS: Enoxaparin 40 MG/0.4 ML Syringe SC (05:10)
[2021-09-06] MEDS: Sodium Chloride 1 GM Tablet PO ×3 (05:10→23:08)
[2021-09-06] MEDS: Pantoprazole Sodium 40 MG Tablet PO (05:10)
[2021-09-06 07:01] VITALS: BP 117/72; PULSE 79; RESP 16; TEMP 36.3; O2SAT 93
[2021-09-06 07:04] VITALS: PULSE 88; RESP 18
[2021-09-06] MEDS: Ipratropium/Albuterol Sulfate 3 ML AMPUL.NEB INHALATION ×4 (07:04→19:25)
[2021-09-06] MEDS: Carvedilol 25 MG Tablet PO ×2 (07:48→23:08)
[2021-09-06] MEDS: dexAMETHasone 4 MG Tablet PO ×2 (07:48→17:15)
[2021-09-06] MEDS: Citalopram 20 MG Tablet PO (07:48)
[2021-09-06] MEDS: Thiamine Hydrochloride 100 MG Tablet PO (07:48)
[2021-09-06] MEDS: Folic Acid 1 MG Tablet PO (07:48)
[2021-09-06] MEDS: levETIRAcetam 1,000 MG Tablet 1000 MG PO ×2 (07:49→23:07)
[2021-09-06] MEDS: Senna/Docusate Sodium 1 Tablet 2 TABLET PO ×2 (07:49→23:08)
[2021-09-06] MEDS: Flecainide 100 MG Tablet 50 MG PO ×2 (07:50→23:30)
[2021-09-06] MEDS: Lisinopril 10 MG Tablet PO (07:50)
[2021-09-06] MEDS: Nystatin Powder 15gm Bottle 1 APPLIC TOPICAL ×2 (10:00→23:09)
[2021-09-06] MEDS: Menthol/Lanolin/Calamine/Znox 113 GM Tube 1 APPLIC TOPICAL ×2 (10:00→23:09)
[2021-09-06 10:28] VITALS: PULSE 82; RESP 18
[2021-09-06 14:36] VITALS: PULSE 85; RESP 18
[2021-09-06 19:00] VITALS: BP 102/65; PULSE 60; RESP 17; TEMP 36.2; O2SAT 92
[2021-09-06 19:25] VITALS: PULSE 72; RESP 16; O2SAT 93
[2021-09-06] MEDS: Ketoconazole Cream 1 APPLIC TOPICAL (23:08)
[2021-09-06] MEDS: Atorvastatin Calcium 40 MG Tablet PO (23:08)
[2021-09-07] MEDS: Enoxaparin 40 MG/0.4 ML Syringe SC (06:14)
[2021-09-07] MEDS: Pantoprazole Sodium 40 MG Tablet PO (06:14)
[2021-09-07] MEDS: Sodium Chloride 1 GM Tablet PO ×3 (06:14→21:11)
[2021-09-07 07:12] VITALS: PULSE 86; RESP 18
[2021-09-07] MEDS: Ipratropium/Albuterol Sulfate 3 ML AMPUL.NEB INHALATION ×3 (07:12→14:47)
[2021-09-07 07:19] VITALS: BP 141/64; PULSE 114; RESP 18; TEMP 36.6; O2SAT 94
[2021-09-07] MEDS: Senna/Docusate Sodium 1 Tablet 2 TABLET PO (08:56)
[2021-09-07] MEDS: dexAMETHasone 4 MG Tablet PO ×2 (08:56→17:15)
[2021-09-07] MEDS: Lisinopril 10 MG Tablet PO (08:56)
[2021-09-07] MEDS: Folic Acid 1 MG Tablet PO (08:57)
[2021-09-07] MEDS: Flecainide 100 MG Tablet 50 MG PO ×2 (08:57→21:09)
[2021-09-07] MEDS: Thiamine Hydrochloride 100 MG Tablet PO (08:57)
[2021-09-07] MEDS: Carvedilol 25 MG Tablet PO ×2 (08:57→21:11)
[2021-09-07] MEDS: levETIRAcetam 1,000 MG Tablet 1000 MG PO ×2 (08:58→21:11)
[2021-09-07] MEDS: Citalopram 20 MG Tablet PO (08:59)
[2021-09-07] MEDS: Nystatin Powder 15gm Bottle 1 APPLIC TOPICAL ×2 (10:16→21:15)
[2021-09-07] MEDS: Menthol/Lanolin/Calamine/Znox 113 GM Tube 1 APPLIC TOPICAL ×2 (10:16→21:14)
[2021-09-07 10:41] VITALS: PULSE 78; RESP 18
[2021-09-07 14:47] VITALS: PULSE 87; RESP 18
[2021-09-07 19:27] VITALS: PULSE 75; RESP 16; O2SAT 94
[2021-09-07 20:50] VITALS: BP 99/57; PULSE 91; RESP 16; TEMP 36.4; O2SAT 95
[2021-09-07] MEDS: Atorvastatin Calcium 40 MG Tablet PO (21:12)
[2021-09-08] MEDS: Menthol/Lanolin/Calamine/Znox 113 GM Tube 1 APPLIC TOPICAL ×2 (05:13→21:16)
[2021-09-08] MEDS: Enoxaparin 40 MG/0.4 ML Syringe SC (05:13)
[2021-09-08] MEDS: Nystatin Powder 15gm Bottle 1 APPLIC TOPICAL ×2 (05:13→21:17)
[2021-09-08] MEDS: Sodium Chloride 1 GM Tablet PO ×3 (05:13→21:10)
[2021-09-08] MEDS: Pantoprazole Sodium 40 MG Tablet PO (05:13)
[2021-09-08 05:56] LABS: Hematocrit 41.2 % (40-54); Hemoglobin 14.1 g/dL (13.0-16.5); Mean Corp Hgb Conc 34.2 g/dL (32-36); Mean Corpuscular Hgb 31.2 pg (27.0-32.0); Mean Corpuscular Volume 91.2 fL (80-94); Mean Platelet Vol. 12.3 fl (6.2-12.0); Platelet Count 135 K/mm3 (150-450); RBC Distribution Width CV 16.7 % (11.6-14.6); RBC Distribution Width SD 55.7 fl (35.1-43.9); Red Blood Count 4.52 M/mm3 (4.6-6.2); White Blood Count 11.2 K/mm3 (4.4-11.0)
[2021-09-08 06:25] LABS: Anion Gap 7 (5-15); BUN 22 mg/dL (7-18); BUN/Creat Ratio 34.4 RATIO (10-20); Calcium,Total 7.6 mg/dL (8.5-10.1); Chloride 104 mmol/L (98-107); Creatinine, Serum 0.64 mg/dL (0.70-1.30); EST Glomerular Filtration Rate 131 mL/min (>60); Est Glom Filt Rate - Afr Amer 158 mL/min (>60); Estimated Creatinine Clearance 84.15 ml/min; Glucose 160 mg/dL (74-106); Magnesium 1.8 mg/dL (1.6-2.6); Potassium 3.8 mmol/L (3.5-5.1); Sodium Level 134 mmol/L (136-145)
[2021-09-08 06:55] VITALS: PULSE 95; RESP 16; O2SAT 92
[2021-09-08] MEDS: Ipratropium/Albuterol Sulfate 3 ML AMPUL.NEB INHALATION (06:55)
[2021-09-08 07:41] VITALS: BP 106/68; PULSE 70; RESP 18; TEMP 36.4; O2SAT 92
[2021-09-08] MEDS: Thiamine Hydrochloride 100 MG Tablet PO (09:10)
[2021-09-08] MEDS: Lisinopril 10 MG Tablet PO (09:10)
[2021-09-08] MEDS: Folic Acid 1 MG Tablet PO (09:10)
[2021-09-08] MEDS: dexAMETHasone 4 MG Tablet PO ×2 (09:10→17:24)
[2021-09-08] MEDS: Carvedilol 25 MG Tablet PO ×2 (09:11→21:10)
[2021-09-08] MEDS: Flecainide 100 MG Tablet 50 MG PO ×2 (09:11→21:09)
[2021-09-08] MEDS: levETIRAcetam 1,000 MG Tablet 1000 MG PO ×2 (09:11→21:10)
[2021-09-08] MEDS: Citalopram 20 MG Tablet PO (09:23)
[2021-09-08 14:20] VITALS: RESP 16
[2021-09-08] MEDS: Albuterol 2.5 MG/3 ML VIAL.NEB. INHALATION ×2 (14:20→20:18)
[2021-09-08 19:11] VITALS: BP 101/66; PULSE 95; RESP 18; TEMP 37; O2SAT 94
[2021-09-08 20:15] VITALS: PULSE 101; RESP 16; O2SAT 93
--- NOTE | 2021-09-08 20:17 | NURSING ---
RT in room for breathing treatment.
[2021-09-08] MEDS: Atorvastatin Calcium 40 MG Tablet PO (21:10)
[2021-09-08] MEDS: Ketoconazole Cream 1 APPLIC TOPICAL (21:11)
[2021-09-08 22:00] VITALS: PULSE 90; RESP 16; O2SAT 96
[2021-09-09] MEDS: Pantoprazole Sodium 40 MG Tablet PO (05:11)
[2021-09-09] MEDS: Enoxaparin 40 MG/0.4 ML Syringe SC (05:11)
[2021-09-09] MEDS: Sodium Chloride 1 GM Tablet PO ×3 (05:11→20:58)
[2021-09-09] MEDS: Menthol/Lanolin/Calamine/Znox 113 GM Tube 1 APPLIC TOPICAL ×2 (05:13→20:56)
[2021-09-09] MEDS: Nystatin Powder 15gm Bottle 1 APPLIC TOPICAL ×2 (05:13→21:21)
[2021-09-09 07:21] VITALS: BP 101/66; PULSE 97; RESP 16; TEMP 36.4; O2SAT 98
[2021-09-09] MEDS: Citalopram 20 MG Tablet PO (07:44)
[2021-09-09] MEDS: Thiamine Hydrochloride 100 MG Tablet PO (07:44)
[2021-09-09] MEDS: dexAMETHasone 4 MG Tablet PO ×2 (07:44→17:32)
[2021-09-09] MEDS: Carvedilol 25 MG Tablet PO ×2 (07:44→20:57)
[2021-09-09] MEDS: Folic Acid 1 MG Tablet PO (07:44)
[2021-09-09] MEDS: Lisinopril 10 MG Tablet PO (07:45)
[2021-09-09] MEDS: Flecainide 100 MG Tablet 50 MG PO ×2 (07:45→20:58)
[2021-09-09] MEDS: levETIRAcetam 1,000 MG Tablet 1000 MG PO ×2 (07:45→20:57)
[2021-09-09 08:10] VITALS: PULSE 89; RESP 18
[2021-09-09] MEDS: Albuterol 2.5 MG/3 ML VIAL.NEB. INHALATION ×3 (08:10→15:50)
--- NOTE | 2021-09-09 10:35 | PCM.PROGNOTE ---
Subjective Subjective Afebrile VSS Maintaining appropriate oxygen saturation on RA Oral intake is adequate Has been incontinent of urine. post void residuals are not high Discussed with nursing - no problems that need addressed Reviewed the PT/OT/ST notes Medication list reviewed. All lab from yesterday was personally reviewed. HGB is stable and within normal limits. The white blood cell count is mildly increased at 11.2. Platelets are mildly decreased at 135. I suspect this is due to Lovenox. Sodium is 134 and he is on salt tablets. The BUN is 22 and the creatinine is 0.64. FBS was 160 yesterday. Calcium is low at 7.6, the calcium corrected for hypoalbuminemia is 8.8 which is within normal limits. Magnesium is 1.8. Tells me that changing the Duoneb to plain Albuterol has helped with the dry mouth but, he still has a dry mouth. He is trying to increase his fluid intake.....urine is still fairly concentrated. He denies pain. No GARCÍA and no lightheadedness, chills, sweats, calf pain, N/V/abd pain. He has some nasal congestion. No palpitations. He tells me that his mood is improving and he is more motivated to get things done. He wants to live. He met with palliative care last week and he thinks this will help him. He has contacted some folks and they are going to go out to his house and check it out and see if there is anything they can do to fix it up. Objective Data Objective Data Vital Signs: Vital Signs Temp Pulse Resp BP Pulse Ox 97.6 F L 89 18 101/66 98 09/09/21 07:21 09/09/21 08:10 09/09/21 08:10 09/09/21 07:21 09/09/21 07:21 Oxygen Delivery Method Room Air Weight: 244 lb 15.995 oz Body Mass Index (BMI) 29.0 Intake & Output: Intake and Output for Last 24 Hours 09/07/21 09/08/21 09/09/21 23:59 23:59 23:59 Intake Total 840 / 840 400 / 400 Output Total 200 / 200 200 / 200 Balance -200 / -200 640 / 640 400 / 400 Lab / Micro Data Result Diagrams: 09/08/21 05:42 04/04/22 05:42 Physical Exam Const alert, oriented x3 and no apparent distress Constitutional Narrative: affect is more upbeat and he is no longer tearful. He is talkative and makes good eye contact. General Appearance: cooperative, comfortable and well kempt HEENT HEENT Narrative: Mucous membranes are dry Resp Resp Narrative: much better air exchange than at admission.....even in the R base. Occasional rhonchi but no wheezing. No significant crackles. Not coughing when he takes a deep breath. Not tachypneic, no accessory muscle use and he is able to speak in complete sentences. Cardio Cardio Narrative: irregular with controlled VR on Coreg. No gallop. GI normal to inspection, nondistended, normoactive bowel sounds, soft to palpation and non-tender Extremity no calf tenderness and no pedal edema Extremity Narrative: He has known deep vein thrombosis in the left gastrocnemius and peroneal veins. Denies pain and swelling in the upper extremities Skin Skin Narrative: The scalp incision is intact with no erythema, no DC and no swelling General Skin Exam: no breakdown Rashes: no rashes Psych denies hallucinations, denies homicidal ideation and denies suicidal ideation Appearance: grossly normal and appropriate Activity / Motor Behavior: appropriate eye contact Mood & Affect: other more upbeat and less tearful today. Thought Process: No disorganized, No flight of ideas, No illogical and No racing thoughts Assessment & Plan Assessment/Plan (1) Brain neoplasm malignant: QUALIFIERS: Malignant neoplasm of brain location: parietal lobe Qualified Code(s): C71.3 - Malignant neoplasm of parietal lobe (2) Physical debility: (3) Metastatic adenocarcinoma to bone: (4) Depression: QUALIFIERS: Depression Type: major depressive disorder Major depression recurrence: unspecified whether recurrent Active/Remission status: currently active Major depression episode severity: unspecified Qualified Code(s): F32.9 - Major depressive disorder, single episode, unspecified (5) Foot drop, right: (6) Status post craniotomy: (7) DVT (deep venous thrombosis): QUALIFIERS: DVT location: lower extremity Affected thrombotic vein of extremity: unspecified vein of extremity Chronicity: unspecified Laterality: unspecified laterality Qualified Code(s): I82.409 - Acute embolism and thrombosis of unspecified deep veins of unspecified lower extremity (8) Hyponatremia: (9) Adenocarcinoma of lung: QUALIFIERS: Laterality: right Qualified Code(s): C34.91 - Malignant neoplasm of unspecified part of right bronchus or lung (10) Paroxysmal atrial fibrillation: (11) Dry mouth: PLAN: 1. Order Biotene PRN for dry mouth 2. Continue the Citalopram 3. DC the folic acid and the Thiamine.......he stopped drinking a long time ago and we are past the time he would have had DT's of he still was a drinker. Start a MV once daily. 4. Continue therapy 5. DC the Lovenox and start Eliquis 5 mg BID in the AM for DVT and AF.......because of the recent craniotomy will not load. 6. Remove the alyssa from the scalp incision today. He is making good progress in therapy and has a very good attitude.....wants to get better so that he can one day get home. Charges/Coding Visit Charges Inpatient E&M: 39908 Subs Hosp L2
[2021-09-09 11:06] VITALS: PULSE 90; RESP 18
--- NOTE | 2021-09-09 16:02 | NURSING ---
20 alyssa removed from pt's head at this time. pt denies pain or discomfort. pt tolerated procedure well. incision well approximated with no signs or symptoms of infection noted at this time. pt denies further needs at this time. call light within reach.
[2021-09-09 16:18] VITALS: PULSE 82; RESP 18
[2021-09-09 18:52] VITALS: BP 123/80; PULSE 96; RESP 15; TEMP 36.5; O2SAT 95
[2021-09-09] MEDS: Saliva Substitute 237 ML BOTTLE 15 ML MUCOUS MEM (20:53)
[2021-09-09] MEDS: APIXABAN 5 MG TABLET PO (20:57)
[2021-09-09] MEDS: Ketoconazole Cream 1 APPLIC TOPICAL (20:58)
[2021-09-09] MEDS: Atorvastatin Calcium 40 MG Tablet PO (20:58)
[2021-09-09 21:10] VITALS: PULSE 86; RESP 17; O2SAT 97
[2021-09-10] MEDS: Sodium Chloride 1 GM Tablet PO ×3 (05:15→20:29)
[2021-09-10] MEDS: Pantoprazole Sodium 40 MG Tablet PO ×2 (05:15→20:31)
[2021-09-10] MEDS: Menthol/Lanolin/Calamine/Znox 113 GM Tube 1 APPLIC TOPICAL ×2 (05:18→20:40)
[2021-09-10] MEDS: Nystatin Powder 15gm Bottle 1 APPLIC TOPICAL ×2 (05:20→20:40)
[2021-09-10 06:45] VITALS: PULSE 79; RESP 16; O2SAT 96
[2021-09-10] MEDS: Albuterol 2.5 MG/3 ML VIAL.NEB. INHALATION ×3 (06:45→19:55)
[2021-09-10 07:54] VITALS: BP 105/64; PULSE 73; RESP 16; TEMP 36.3; O2SAT 96
[2021-09-10] MEDS: Carvedilol 25 MG Tablet PO ×2 (08:17→20:34)
[2021-09-10] MEDS: Citalopram 20 MG Tablet PO (08:17)
[2021-09-10] MEDS: APIXABAN 5 MG TABLET PO ×2 (08:17→20:34)
[2021-09-10] MEDS: Multivitamins,Ther W-Minerals Tablet 1 TABLET PO (08:17)
[2021-09-10] MEDS: dexAMETHasone 4 MG Tablet PO ×2 (08:17→17:10)
[2021-09-10] MEDS: levETIRAcetam 1,000 MG Tablet 1000 MG PO ×2 (08:17→20:33)
[2021-09-10] MEDS: Lisinopril 10 MG Tablet PO (08:18)
[2021-09-10] MEDS: Polyethylene Glycol 3350 17 GM PACKET PO (08:18)
[2021-09-10] MEDS: Flecainide 100 MG Tablet 50 MG PO ×2 (08:18→20:29)
--- NOTE | 2021-09-10 10:18 | CASEMGMT ---
Social Work Received call from dtr. Dtr expressed being very overwhelmed with this process, unsure of pt's DC plans, unsure about reality of returning to the community, feelings of burnout, emotional and mentally drained, etc. Spent approx. 25 mins providing supportive listening, emotional and verbal support. Acknowledged dtr's bravery to express those feelings, recognizing her limits, and caring so much for her father's well-being. Encouraged her to remain a support person for pt and not to take on more decisions than what is needed. Explained pt has found new determination, purpose in life, motivation, and goals moving forward. He is optimistic, but realistic to returning to the community. Encouraged dtr to focus on herself, rejuvenate. Explored dtr's coping skills and reframed mindset. At the end of the conversation, dtr sounded calmer and had more clarity of how to proceed. Dtr expressed great appreciation for the time and support given by this worker. Trisha Castellano, MARIBEL FERNANDEZ
--- NOTE | 2021-09-10 16:26 | CASEMGMT ---
Social Work Met with pt, per request. Pt very excited to share with this worker the phone calls he made to pursue making home modifications, looking into secondary insurance and finding a cleaning company for his home. Pt explained [place] confirmed pt has SNF secondary coverage. SW contacted registration and provided that information. Pt explained [employer] is able to come to his home to determine the upgrades needed, if salvageable, at the end of the month. They will contact him to schedule that as family will need to provide them access to the home. Commended pt for taking responsibility and completing those tasks. Commented on pt being optimistic but realistic. Pt is aware he will still need to DC to a SNF on 09/21, but it does not appear unrealistic for him to return to the community. Openly discussed there are several variables to that goal - housing, mobility, finances. Pt expressed understanding and has put limits/caps to goals, i.e. he will only spend $10k on improving his home to return or he will find a new home, etc. Commended pt for his problem solving, forward thinking, and motivation. Provided ongoing supportive listening as he opened up further about his relationship with his stepdtr, Cherelle, and his son that he hasn't known since he as [age] years old. Encouraged to reflect on those relationships and proceed how he feels comfortable. Pt was emotional during this conversation. Provided support. At the end of conversation, pt expressed great appreciation for assistance and support given not only for this worker, but for CLINIC LPN assistance during their sessions. MARIEBL Nathan
--- NOTE | 2021-09-10 17:00 | CASEMGMT ---
Social Work Received call from dtr stating she toured [facility] and [facility] today and is more impressed with [facility] for several reasons. Dtr feels pt would be more comfortable and get his needs better met at [facility], but will bring all of the information to pt to make the final decision. Dtr expressed she feels less overwhelmed since those tours and conversation earlier with this worker. SW agreed to make referrals to both SNFs once a little closer to [place]. Will await update from Team meeting tomorrow. SW to continue to follow. Trisha Castellano ,EIGHT SECTION BLOWER STOCK RANCH SUPERVISOR
[2021-09-10 19:19] VITALS: BP 117/67; PULSE 90; RESP 16; TEMP 36.3; O2SAT 99
[2021-09-10 19:55] VITALS: PULSE 75; RESP 16
[2021-09-10] MEDS: Ketoconazole Cream 1 APPLIC TOPICAL (20:32)
[2021-09-10] MEDS: Atorvastatin Calcium 40 MG Tablet PO (20:33)
[2021-09-10 22:00] VITALS: PULSE 90; RESP 17; O2SAT 96
[2021-09-11] MEDS: Sodium Chloride 1 GM Tablet PO ×3 (06:09→21:32)
[2021-09-11] MEDS: Albuterol 2.5 MG/3 ML VIAL.NEB. INHALATION ×2 (07:10→19:10)
[2021-09-11 07:25] VITALS: PULSE 85; RESP 18; O2SAT 95
[2021-09-11 07:54] VITALS: BP 101/59; PULSE 89; RESP 16; TEMP 36.4; O2SAT 93
[2021-09-11] MEDS: Carvedilol 25 MG Tablet PO ×2 (08:10→21:33)
[2021-09-11] MEDS: levETIRAcetam 1,000 MG Tablet 1000 MG PO ×2 (08:10→21:32)
[2021-09-11] MEDS: Lisinopril 10 MG Tablet PO (08:10)
[2021-09-11] MEDS: dexAMETHasone 4 MG Tablet PO ×2 (08:10→17:40)
[2021-09-11] MEDS: Multivitamins,Ther W-Minerals Tablet 1 TABLET PO (08:10)
[2021-09-11] MEDS: Citalopram 20 MG Tablet PO (08:10)
[2021-09-11] MEDS: Flecainide 100 MG Tablet 50 MG PO ×2 (08:11→21:31)
[2021-09-11] MEDS: APIXABAN 5 MG TABLET PO ×2 (08:11→21:33)
[2021-09-11] MEDS: Polyethylene Glycol 3350 17 GM PACKET PO (08:12)
[2021-09-11] MEDS: Nystatin Powder 15gm Bottle 1 APPLIC TOPICAL ×2 (08:15→21:32)
[2021-09-11] MEDS: Menthol/Lanolin/Calamine/Znox 113 GM Tube 1 APPLIC TOPICAL ×2 (08:15→21:33)
--- NOTE | 2021-09-11 10:03 | PN_ITS ---
Subjective Subjective Afebrile VSS Maintaining appropriate oxygen saturation on RA Oral intake is adequate Discussed with nursing - no problems that need addressed Reviewed the PT/OT/ST notes Medication list reviewed. He is c/o lightheadedness at times. BP is on the low side frequently but, MAP is good. He is taking Coreg 25 mg BID and Lisinopril 10 mg daily. He was concerned this morning because after his shower when he was sitting in a chair without the TEDS on his R leg looked more purple that normal. He denies pain and denies numbness. His had vein stripping in the past and has venous insufficiency. He denies pain in the Left calf and denies hemoptysis, cough, SOB, palpitations, N/V, dysuria. Alert and oriented X 3, pleasant, slept well last night, good appetite, good color in his face, no crying, appropriate and able to focus and stay on topic when we are talking. Lungs no wheezing and no crackles. Improved air exchange with the aerosols. H-irreg with controlled VR today, no gallops abd - soft, NT, ND, normal BS's no ankle edema, no calf pain, her has purple discoloration of the distal Legs BL, R>L. Both feet are warm to the touch and he has intact sensation in both feet. He is able to wiggle his toes on both feet. Craniotomy incision is healing well and there is no erythema and no swelling or purulent DC Impressions 1. 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 S/P craniotomy and removal of the tumor 3. Major depression - doing better and he is tolerating the Citalopram without adverse side effects 4. hx of HTN - BP is a little on the low side and he sometimes c/o l ightheadedness. Will decrease the Lisinopril to 5 mg daily and continue to monitor the BP closely 5. I discussed what venous insufficiency is with Pat and how we treat it......he was under the impression that since the veins were stripped he no longer had venous insufficiency. Will continue the MAYKEL hose and I advised him to continue post DC to control swelling and prevent venous stasis ulcers. 6. Recheck a CBC on Wednesday and a BMP. 7. Continue Epixaban Objective Data Objective Data Vital Signs: Vital Signs Temp Pulse Resp BP Pulse Ox 97.5 F L 89 16 101/59 L 93 09/11/21 07:54 09/11/21 07:54 09/11/21 07:54 09/11/21 07:54 09/11/21 07:54 Oxygen Delivery Method Room Air Weight: 237 lb 7.005 oz Body Mass Index (BMI) 29.0 Intake & Output: Intake and Output for Last 24 Hours 09/09/21 09/10/21 09/11/21 23:59 23:59 23:59 Intake Total 1780 / 1780 900 / 900 Output Total 400 / 400 700 / 700 350 / 350 Balance 1380 / 1380 200 / 200 -350 / -350 Lab / Micro Data Result Diagrams: 09/08/21 05:42 09/08/21 05:42 Charges/Coding Visit Charges Inpatient E&M: 89006 Subs Hosp L2
--- NOTE | 2021-09-11 18:00 | CASEMGMT ---
Social Work IDT met with patient, dtr, CHELSEA and granddaughter for Team meeting. Discussed patient's progress in PT/OT/ST and nursing. Pt making progress. Confirmed goal is for pt to DC 09/21 to SNF skilled until able to return to community. Pt agreeable to referrals to [facility] and [facility]. Referrals sent. Provided Physician Information brochure to choose new PCP for community. Will ReTeam. Completed advanced directives with pt. Pt named, Cherelle, (technically stepdaughter) as HCPOA. Original and copy provided to pt. Copies placed in chart. SW to continue to follow. Trisha Castellano ,ACTIVITIES MANAGER WEEKDAY BABYSITTER
[2021-09-11 19:27] VITALS: BP 109/72; PULSE 100; RESP 17; TEMP 36.4; O2SAT 98
[2021-09-11 19:45] VITALS: PULSE 88; RESP 18; O2SAT 94
[2021-09-11] MEDS: Senna/Docusate Sodium 1 Tablet 2 TABLET PO (21:32)
[2021-09-11] MEDS: Atorvastatin Calcium 40 MG Tablet PO (21:33)
[2021-09-11] MEDS: Ketoconazole Cream 1 APPLIC TOPICAL (21:35)
[2021-09-12 06:40] VITALS: PULSE 84; RESP 18; O2SAT 96
[2021-09-12] MEDS: Sodium Chloride 1 GM Tablet PO ×3 (06:40→22:33)
[2021-09-12] MEDS: Albuterol 2.5 MG/3 ML VIAL.NEB. INHALATION ×4 (06:40→18:38)
[2021-09-12] MEDS: Pantoprazole Sodium 40 MG Tablet PO (06:40)
[2021-09-12] MEDS: Nystatin Powder 15gm Bottle 1 APPLIC TOPICAL ×2 (06:41→22:43)
[2021-09-12] MEDS: Menthol/Lanolin/Calamine/Znox 113 GM Tube 1 APPLIC TOPICAL ×2 (06:41→22:44)
[2021-09-12 07:35] VITALS: BP 106/75; PULSE 65; RESP 16; TEMP 36.7; O2SAT 95
[2021-09-12] MEDS: Polyethylene Glycol 3350 17 GM PACKET PO (07:45)
[2021-09-12] MEDS: Lisinopril 5 MG Tablet PO (07:45)
[2021-09-12] MEDS: APIXABAN 5 MG TABLET PO ×2 (07:46→22:32)
[2021-09-12] MEDS: dexAMETHasone 4 MG Tablet PO ×2 (07:46→17:20)
[2021-09-12] MEDS: Multivitamins,Ther W-Minerals Tablet 1 TABLET PO (07:46)
[2021-09-12] MEDS: Senna/Docusate Sodium 1 Tablet 2 TABLET PO ×2 (07:46→22:33)
[2021-09-12] MEDS: Citalopram 20 MG Tablet PO (07:46)
[2021-09-12] MEDS: Flecainide 100 MG Tablet 50 MG PO ×2 (07:46→22:33)
[2021-09-12] MEDS: Carvedilol 25 MG Tablet PO ×2 (07:46→22:32)
[2021-09-12] MEDS: levETIRAcetam 1,000 MG Tablet 1000 MG PO ×2 (07:46→22:32)
[2021-09-12 10:50] VITALS: PULSE 85; RESP 18; O2SAT 95
--- NOTE | 2021-09-12 14:31 | CASEMGMT ---
Social Work Contacted dtr to update on outcomes of [facility] denying r/t pursing treatment and concerns with infection control. Dtr very upset with this news. Dtr states she told both facilities pt was pursuing treatment and neither told her that would be an issue. Also explained since pt is not vaccinated, he would be in room isolation for the first 10 days, which would be at any facility he admits to. Dtr upset but expressed understanding. Offered to refer to any other facilities of her choosing. Dtr to process the information and notify this worker of new referrals. Provided ongoing emotional support and provided supportive listening to dtr. SW to continue to follow. Trisha Castellano, LEASING PROPERTY MANAGER NEWS PRODUCTION SUPERVISOR
[2021-09-12 14:35] VITALS: RESP 16
[2021-09-12 18:38] VITALS: PULSE 95; RESP 18
[2021-09-12 21:35] VITALS: BP 99/57; PULSE 90; RESP 16; TEMP 36.8; O2SAT 94
[2021-09-12] MEDS: Ketoconazole Cream 1 APPLIC TOPICAL (22:34)
[2021-09-12] MEDS: Atorvastatin Calcium 40 MG Tablet PO (22:34)
[2021-09-13] MEDS: Sodium Chloride 1 GM Tablet PO ×3 (05:57→22:27)
[2021-09-13] MEDS: Pantoprazole Sodium 40 MG Tablet PO (05:57)
[2021-09-13] MEDS: Nystatin Powder 15gm Bottle 1 APPLIC TOPICAL ×2 (05:59→22:28)
[2021-09-13] MEDS: Menthol/Lanolin/Calamine/Znox 113 GM Tube 1 APPLIC TOPICAL ×2 (05:59→22:28)
[2021-09-13 06:45] VITALS: PULSE 80; RESP 15; O2SAT 96
[2021-09-13] MEDS: Albuterol 2.5 MG/3 ML VIAL.NEB. INHALATION ×4 (06:45→19:13)
[2021-09-13 07:47] VITALS: BP 102/71; PULSE 83; RESP 16; TEMP 36.7; O2SAT 94
[2021-09-13] MEDS: Flecainide 100 MG Tablet 50 MG PO ×2 (08:14→22:26)
[2021-09-13] MEDS: Carvedilol 25 MG Tablet PO ×2 (08:15→22:28)
[2021-09-13] MEDS: Multivitamins,Ther W-Minerals Tablet 1 TABLET PO (08:15)
[2021-09-13] MEDS: Lisinopril 5 MG Tablet PO (08:16)
[2021-09-13] MEDS: Citalopram 20 MG Tablet PO (08:17)
[2021-09-13] MEDS: APIXABAN 5 MG TABLET PO ×2 (08:17→22:28)
[2021-09-13] MEDS: levETIRAcetam 1,000 MG Tablet 1000 MG PO ×2 (08:17→22:28)
[2021-09-13 12:10] VITALS: PULSE 78; RESP 15
[2021-09-13 16:05] VITALS: PULSE 83; RESP 15
[2021-09-13 19:14] VITALS: PULSE 81; RESP 16
[2021-09-13 20:22] VITALS: BP 103/65; PULSE 69; RESP 17; TEMP 36.6; O2SAT 96
[2021-09-13] MEDS: Ketoconazole Cream 1 APPLIC TOPICAL (22:27)
[2021-09-13] MEDS: Atorvastatin Calcium 40 MG Tablet PO (22:28)
[2021-09-14] MEDS: Sodium Chloride 1 GM Tablet PO ×3 (05:59→21:11)
[2021-09-14] MEDS: Pantoprazole Sodium 40 MG Tablet PO (05:59)
[2021-09-14] MEDS: Menthol/Lanolin/Calamine/Znox 113 GM Tube 1 APPLIC TOPICAL ×2 (06:00→21:12)
[2021-09-14] MEDS: Nystatin Powder 15gm Bottle 1 APPLIC TOPICAL ×2 (06:00→21:11)
[2021-09-14] MEDS: Albuterol 2.5 MG/3 ML VIAL.NEB. INHALATION ×4 (06:30→19:12)
[2021-09-14 07:12] VITALS: PULSE 85; RESP 18; O2SAT 93
[2021-09-14 08:00] VITALS: BP 102/60; PULSE 88; RESP 19; TEMP 36.7; O2SAT 93
[2021-09-14] MEDS: Citalopram 20 MG Tablet PO (08:30)
[2021-09-14] MEDS: Multivitamins,Ther W-Minerals Tablet 1 TABLET PO (08:30)
[2021-09-14] MEDS: APIXABAN 5 MG TABLET PO ×2 (08:30→21:11)
[2021-09-14] MEDS: levETIRAcetam 1,000 MG Tablet 1000 MG PO ×2 (08:30→21:11)
[2021-09-14] MEDS: Flecainide 100 MG Tablet 50 MG PO ×2 (08:31→21:10)
[2021-09-14] MEDS: Carvedilol 25 MG Tablet PO ×2 (08:32→21:12)
[2021-09-14] MEDS: Lisinopril 2.5 MG Tablet PO (08:33)
[2021-09-14 10:45] VITALS: PULSE 83; RESP 16
[2021-09-14 14:36] VITALS: PULSE 82; RESP 18
[2021-09-14 19:12] VITALS: PULSE 79; RESP 16
[2021-09-14 19:29] VITALS: BP 101/62; PULSE 61; RESP 16; TEMP 36.8; O2SAT 96
[2021-09-14] MEDS: Atorvastatin Calcium 40 MG Tablet PO (21:11)
[2021-09-14] MEDS: Ketoconazole Cream 1 APPLIC TOPICAL (21:12)
[2021-09-15] MEDS: Nystatin Powder 15gm Bottle 1 APPLIC TOPICAL ×2 (06:27→20:29)
[2021-09-15] MEDS: Pantoprazole Sodium 40 MG Tablet PO (06:27)
[2021-09-15] MEDS: Sodium Chloride 1 GM Tablet PO ×3 (06:27→20:30)
[2021-09-15] MEDS: Menthol/Lanolin/Calamine/Znox 113 GM Tube 1 APPLIC TOPICAL ×2 (06:28→20:24)
[2021-09-15 06:59] VITALS: PULSE 88; RESP 18; O2SAT 94
[2021-09-15] MEDS: Albuterol 2.5 MG/3 ML VIAL.NEB. INHALATION ×2 (06:59→19:45)
[2021-09-15 07:33] VITALS: BP 93/65; PULSE 85; RESP 20; TEMP 36.8; O2SAT 93
[2021-09-15] MEDS: Multivitamins,Ther W-Minerals Tablet 1 TABLET PO (08:10)
[2021-09-15] MEDS: Citalopram 20 MG Tablet PO (08:26)
[2021-09-15] MEDS: levETIRAcetam 1,000 MG Tablet 1000 MG PO ×2 (08:27→20:26)
[2021-09-15] MEDS: Flecainide 100 MG Tablet 50 MG PO ×2 (08:27→20:30)
[2021-09-15] MEDS: APIXABAN 5 MG TABLET PO ×2 (08:29→20:26)
[2021-09-15] MEDS: Polyethylene Glycol 3350 17 GM PACKET PO (08:29)
--- NOTE | 2021-09-15 09:35 | CASEMGMT ---
Addendum entered by Trisha Castellano 09/15/21 15:38: Accepting facilities thus far: [facility], [facility] Original Note: Social Work Received email correspondence from dtr requesting all facilities in [facility], besides [facility] and [place], be referred to. She will then tour the accepting facilities. Dtr states family would be able to transport pt to treatment if needed. Referrals started to: [facility], [facility], [facility], [facility], [facility]. Will keep dtr updated on outcomes. MARIBEL NathanW
--- NOTE | 2021-09-15 10:00 | PN_ITS ---
Subjective Subjective Afebrile VSS-blood pressure this a.m. is 93/65 and I have been tapering the Lisinopril from 10 mg to 2.5 mg. Heart rate is within normal limits. Maintaining appropriate oxygen saturation on RA Oral intake is adequate Having regular BM's Discussed with nursing - no problems that need addressed Reviewed the PT/OT/ST notes Medication list reviewed. Pat denies chest pain, shortness of breath, cephalgia, tremors, nausea/vomiting/abdominal pain, lightheadedness. His only real complaint is he is not sleeping as well as he was. He goes to sleep OK but, wakes up a few hours later and then can not go back to sleep. Has a lot on his mind. He did find a salesperson men's hats for his trailer as is and he is relieved by this. He is agreeable to starting something to help him sleep at night. Objective Data Objective Data Vital Signs: Vital Signs Temp Pulse Resp BP Pulse Ox 98.2 F 85 20 H 93/65 93 09/15/21 07:33 09/15/21 07:33 09/15/21 07:33 09/15/21 07:33 09/15/21 07:33 Oxygen Delivery Method Room Air Weight: 242 lb 8.136 oz Body Mass Index (BMI) 29.0 Intake & Output: Intake and Output for Last 24 Hours 09/13/21 09/14/21 09/15/21 23:59 23:59 23:59 Intake Total 360 / 360 1080 / 1080 240 / 240 Output Total 1400 / 1400 800 / 800 Balance -1040 / -1040 280 / 280 240 / 240 Lab / Micro Data Result Diagrams: 09/08/21 05:42 09/08/21 05:42 Physical Exam Const alert, oriented x3 and no apparent distress General Appearance: cooperative, well kempt and well developed HEENT HEENT Narrative: No scleral icterus and no conjunctival injection. His MM are moist and there is no thrush. Resp normal respiratory effort Resp Narrative: Decreased breath sounds in the right base with rare scattered rhonchi. No crackles. Not tachypneic, no conversational dyspnea. Cardio regular rate, regular rhythm and no gallops GI normal to inspection, nondistended, normoactive bowel sounds, soft to palpation and non-tender Extremity no calf tenderness and no pedal edema Extremity Narrative: has occasional spasm in the R leg but, I attribute this to nerve function coming back and he tells me that he does not need to have it treated...it passes without treatment. Skin General Skin Exam: no breakdown Rashes: no rashes Psych affect normal, denies hallucinations and denies homicidal ideation Mood & Affect: anxious and other non longer tearful but, he has some anxiety.......admitted to having a lot going on and wants to move forward with chemo and radiation [facility]. SW is looking for a SNF that will take him if he is getting chemo/radiation. Assessment & Plan Assessment/Plan (1) Low blood pressure, not hypotension: PLAN: 1. DC the Lisinopril 2. Decrease the Coreg to 12.5 mg BID. Denies lightheadedness 3. Check a Cortisol in the AM. Recently was on a Decadron taper. 4. Check the CT of the abdomen done at the previous hospital to see if the adrenals are normal.....I seem to remember there was some thickening. 5. Start Low dose Trazodone at night for sleep. Monitor for urine retention. Charges/Coding Visit Charges Inpatient E&M: 10542 Subs Hosp L2
[2021-09-15 10:25] VITALS: PULSE 99; RESP 18
[2021-09-15] MEDS: Carvedilol 12.5 MG Tablet PO ×2 (12:19→20:25)
[2021-09-15 19:38] VITALS: BP 94/66; PULSE 104; RESP 16; TEMP 36.6; O2SAT 94
[2021-09-15 19:45] VITALS: PULSE 103; RESP 16
[2021-09-15] MEDS: traZODone 50 MG Tablet PO (20:28)
[2021-09-15] MEDS: Atorvastatin Calcium 40 MG Tablet PO (20:29)
[2021-09-15] MEDS: Ketoconazole Cream 1 APPLIC TOPICAL (20:30)
[2021-09-15] MEDS: Senna/Docusate Sodium 1 Tablet 2 TABLET PO (20:46)
[2021-09-15 22:00] VITALS: PULSE 89; RESP 18
[2021-09-16] VITALS (7 sets, daily range): BP systolic 94–110; BP diastolic 67–72; PULSE 92–102; RESP 7–18; TEMP 36.1–36.4; O2SAT 95–96
[2021-09-16 05:49] LABS: Hemoglobin 12.3 g/dL (13.0-16.5); Mean Corp Hgb Conc 33.2 g/dL (32-36); Mean Corpuscular Hgb 30.8 pg (27.0-32.0); Mean Corpuscular Volume 92.5 fL (80-94); Mean Platelet Vol. 12.1 fl (6.2-12.0); Platelet Count 112 K/mm3 (150-450); RBC Distribution Width CV 17.2 % (11.6-14.6); RBC Distribution Width SD 58.3 fl (35.1-43.9); White Blood Count 6.4 K/mm3 (4.4-11.0)
[2021-09-16 06:20] LABS: Anion Gap 3 (5-15); BUN 16 mg/dL (7-18); BUN/Creat Ratio 27.9 RATIO (10-20); Calcium,Total 7.7 mg/dL (8.5-10.1); Chloride 105 mmol/L (98-107); Creatinine, Serum 0.57 mg/dL (0.70-1.30); EST Glomerular Filtration Rate 148 mL/min (>60); Est Glom Filt Rate - Afr Amer 179 mL/min (>60); Estimated Creatinine Clearance 84.15 ml/min; Glucose 133 mg/dL (74-106); Magnesium 1.9 mg/dL (1.6-2.6); Potassium 3.8 mmol/L (3.5-5.1); Sodium Level 135 mmol/L (136-145)
[2021-09-16] MEDS: Pantoprazole Sodium 40 MG Tablet PO (06:40)
[2021-09-16] MEDS: Sodium Chloride 1 GM Tablet PO ×2 (06:40→21:15)
[2021-09-16] MEDS: Menthol/Lanolin/Calamine/Znox 113 GM Tube 1 APPLIC TOPICAL ×2 (06:41→21:14)
[2021-09-16] MEDS: Nystatin Powder 15gm Bottle 1 APPLIC TOPICAL ×2 (06:41→21:14)
[2021-09-16] MEDS: Albuterol 2.5 MG/3 ML VIAL.NEB. INHALATION ×4 (07:00→19:03)
[2021-09-16] MEDS: Polyethylene Glycol 3350 17 GM PACKET PO (07:54)
[2021-09-16] MEDS: Flecainide 100 MG Tablet 50 MG PO ×2 (07:54→21:15)
[2021-09-16] MEDS: levETIRAcetam 1,000 MG Tablet 1000 MG PO (07:54)
[2021-09-16] MEDS: Multivitamins,Ther W-Minerals Tablet 1 TABLET PO (07:55)
[2021-09-16] MEDS: Citalopram 20 MG Tablet PO (07:55)
[2021-09-16] MEDS: APIXABAN 5 MG TABLET PO (09:43)
--- NOTE | 2021-09-16 10:04 | PCM.PROGNOTE ---
Subjective Subjective Afebrile VSS-blood pressure this a.m. is 94/67 with a MAP of 76. Coreg was halved yesterday and he received 12.5 mg twice daily. Maintaining appropriate oxygen saturation on RA Oral intake is adequate. MM are moist. weights are varying but he has been eating well and it is stable.....he was 237.4 at admission and he is 240.5 today. Discussed with nursing - no problems that need addressed Reviewed the PT/OT/ST notes Medication list reviewed. All lab was personally reviewed. White blood cell count is now normal at 6.4. Hemoglobin is today is 12.3 which is down from 14.1 on 09/08/2021. Platelets are low at 112,000. Sodium is stable at 135 and potassium is normal at 3.8. BUN is down to 16 and his creatinine is 0.57. Mag is stable at 1.9. He tells me that he slept better last night and he would like to continue the Trazodone. Denies urine retention, frequency and urgency. Objective Data Objective Data Vital Signs: Vital Signs Temp Pulse Resp BP Pulse Ox 97.5 F L 95 16 94/67 96 09/16/21 07:48 09/16/21 07:48 09/16/21 07:48 09/16/21 07:48 09/16/21 07:48 Oxygen Delivery Method Room Air Weight: 240 lb 8.389 oz Body Mass Index (BMI) 29.0 Intake & Output: Intake and Output for Last 24 Hours 09/14/21 09/15/21 09/16/21 23:59 23:59 23:59 Intake Total 1080 / 1080 840 / 840 Output Total 800 / 800 Balance 280 / 280 840 / 840 Lab / Micro Data Result Diagrams: 09/16/21 05:36 09/16/21 05:36 Labs: Laboratory Results - last 24 hr 09/16/21 05:36: WBC 6.4, RBC 4.00 L, Hgb 12.3 L, Hct 37.0 L, MCV 92.5, MCH 30.8, MCHC 33.2, RDW Std Deviation 58.3 H, RDW Coeff of Leesa 17.2 H, Plt Count 112 L, MPV 12.1 H 09/16/21 05:36: Sodium 135 L, Potassium 3.8, Chloride 105, Carbon Dioxide 27.0, Anion Gap 3 L, BUN 16, Creatinine 0.57 L, Estim Creat Clear Calc 84.15, Est GFR (MDRD) Af Amer 179, Est GFR (MDRD) Non-Af 148, BUN/Creatinine Ratio 27.9 H, Glucose 133 H, Calcium 7.7 L, Magnesium 1.9 09/16/21 05:36: Cortisol 17.70 Physical Exam Const alert and no apparent distress Resp normal respiratory effort Resp Narrative: Decreased air exchange in the R base with rare scattered rhonchi. No tight wheezing and no crackles. Not tachypneic and no accessory muscle use. Assessment & Plan Assessment/Plan (1) Thrombocytopenia: PLAN: 1. Discussed the Thrombocytopenia with the Pharm D. She thinks Eliquis is the most likely cause. She is going to do some research. Keppra, Flecainide, Pantoprazole and Lipitor can also cause thrombocytopenia. With the AdenoCA of the lung and blood clots in the Left Leg it may be better to use Lovenox but, that can cause thrombocytopenia as well. The Eliquis is new......he had been maintaining NSR on Flecainide so he had been taken off anticoagulation. He has been on Flecainide and Lipitor for some time prior to the development of the thrombocytopenia so I do not think these 2 drugs are the culprit. He was started on the Keppra post craniotomy for seizure prophylaxis and we may be able to stop this. Will decrease the dose to 500 mg BID and consider discontinuing in the future if no seizures. There was only 1 tumor in the brain and it has been removed. 2. Low Sodium may be related to to restarting the Citalopram which he had not been taking prior to the surgery. It is currently stable so will continue the Citalopram. It could also be due to cerebral salt wasting. Will decrease the salt tablets to BID and recheck a sodium on Wednesday or Wednesday. 3. Decrease the Pantoprazole to 20 mg daily. 4. Check a Hemoccult stool. 5. Continue the Trazodone - he slept much better last night. 6. Will discuss with Dr. Carmona whether he wants him on Eliquis or Lovenox. Charges/Coding Visit Charges Inpatient E&M: 18409 Subs Hosp L2
--- NOTE | 2021-09-16 16:30 | CASEMGMT ---
Social Work Dtr contacted this worker for update. Informed her [facility] cannot accept due to availability, but offered to review referral closer to [place] if pt does not have placement. Have not received outcomes from [facility] or [facility] yet. Dtr clarified that when she stated family would transport pt to treatment appts, she would have pt hire [facility] to transport, she personally would not. SW thanked for clarification as that is not how this worker interpreted her previous statement. Dtr also explained she has been at pt's trailer all day, with respirator masks and dumpsters cleaning it out. She stated the neighbors approached her the other day about buying the trailer, but it needed to be cleaned out, down to the studs, per dtr. Inquired if she spoke with pt about this. Dtr stated she spoke with pt last evening and he did agree to selling the trailer and if he can return to community living, he would move into a mobile home closer to family, in town. Dtr prefers that plan as that is what's best for pt. SW agreed. Dtr stated she spoke with Dr. Carmona's office requesting Dr. speak with pt and dtr while still in [place] on prognosis and treatment options, as they are requesting further details. Dtr states Dr. Lockett will need to place consult and requested this worker be present for that conversation. SW agreed and spoke with Dr. Lockett whom agreed to place consult and have Dr. Carmona's office contact this worker to coordinate meeting with pt/dtr. Dtr appreciative of SW ongoing assistance and support. SW to continue to follow. MARIBEL Nathan
[2021-09-16] MEDS: Enoxaparin 120 MG/0.8 ML Syringe 110 MG SC (21:12)
[2021-09-16] MEDS: traZODone 50 MG Tablet PO (21:14)
[2021-09-16] MEDS: Carvedilol 12.5 MG Tablet PO (21:14)
[2021-09-16] MEDS: Atorvastatin Calcium 40 MG Tablet PO (21:14)
[2021-09-16] MEDS: levETIRAcetam 500 MG Tablet PO (21:14)
[2021-09-16] MEDS: Ketoconazole Cream 1 APPLIC TOPICAL (21:15)
[2021-09-17] MEDS: Pantoprazole Sodium 20 MG Tablet PO (06:04)
[2021-09-17] MEDS: Albuterol 2.5 MG/3 ML VIAL.NEB. INHALATION ×4 (06:30→19:00)
[2021-09-17 07:10] VITALS: PULSE 91; RESP 19
[2021-09-17 07:56] VITALS: BP 98/59; PULSE 102; RESP 18; TEMP 36.6; O2SAT 94
[2021-09-17] MEDS: Enoxaparin 120 MG/0.8 ML Syringe 110 MG SC ×2 (08:01→20:04)
[2021-09-17] MEDS: Multivitamins,Ther W-Minerals Tablet 1 TABLET PO (08:02)
[2021-09-17] MEDS: Citalopram 20 MG Tablet PO (08:02)
[2021-09-17] MEDS: levETIRAcetam 500 MG Tablet PO ×2 (08:04→20:27)
[2021-09-17] MEDS: Carvedilol 12.5 MG Tablet PO ×2 (08:04→20:43)
[2021-09-17] MEDS: Flecainide 100 MG Tablet 50 MG PO ×2 (08:07→20:25)
[2021-09-17] MEDS: Sodium Chloride 1 GM Tablet PO ×2 (08:07→20:26)
--- NOTE | 2021-09-17 08:25 | NURSING ---
pt tells this RN that he is feeling congested and has a cough. pt states that his cough is productive but he does not know the color of the sputum. lungs auscultated at this time and pt noted to have coarse crackles in the anterior and posterior lung reis. this RN asks pt if he can let this RN know when he produces sputum. this RN leaves pt room and then pt calls this nurse back in. pt coughs up blood tinged sputum at this time. thin and stringy in consistency. pt then asks this RN if this is a normal part of cancer. This RN educates pt that it can happen with cancer depending on the type. pt states understanding. this RN to inform dr. polanco. pt denies further questions or concerns. pts call light within reach.
--- NOTE | 2021-09-17 09:24 | RAD_ITS ---
STUDY: X-RAY CHEST REASON FOR EXAM: Male, 70 years old. Cough and abnormal lung sounds TECHNIQUE: PA and lateral views of the chest. COMPARISON: Comparison is made with prior study of 08/20/2021. FINDINGS: There is evidence of a 6 cm x 3.4 cm right infrahilar mass with the findings suggestive of pneumonitis in the right lower lobe. Mild degree of increased interstitial markings in keeping with scarring. Questionable 1.4 cm nodule in the central portion of the left lung. Normal size heart. Normal mediastinum and julián. Normal visualized pulmonary arteries. There is atherosclerotic calcification of the aortic arch with tortuosity. There are diffuse degenerative changes of the visualized thoracic spine. Normal visualized ribs, clavicles, and shoulders. There is no demonstrated abnormality of the visualized soft tissue structures of the upper abdomen. RAD/Chest PA and Lateral IMPRESSION: Right infrahilar mass with pneumonitis in the right lower lobe. Questionable 1.4 cm nodule in the central portion of the left lung. Correlation with a CT scan of the thorax is recommended. Electronically Signed: Dallas Wilson MD at 13:25 EDT ,
--- NOTE | 2021-09-17 10:18 | CT_ITS ---
EXAM: CT CHEST WITH INTRAVENOUS CONTRAST : 1950 CLINICAL INDICATION: post obstructive Pneumonia/adenoCA of the lung/VTE TECHNIQUE: Helically acquired images were obtained of the chest with intravenous contrast. This CT exam was performed using one or more of the following dose reduction techniques: automated exposure control, adjustment of the mA and/or kV according to patient size, and/or use of iterative reconstruction technique. This report was created using [employer] report generation technology. CONTRAST: IV 100mL Isovue-300 COMPARISON: Chest radiograph September 17, 2021 FINDINGS: LUNGS AND PLEURAL SPACES: Unremarkable. No mass. No consolidation or edema. No pleural effusion or thickening. No pneumothorax. HEART: Unremarkable. Heart size is normal. No pericardial effusion. No significant coronary artery calcifications. MEDIASTINUM: 11 x 7 cm right lower lobe lung mass noted contiguous with the subcarinal region of the mediastinum. Enlarged mediastinal and hilar lymph nodes noted bilaterally consistent with metastatic disease. Cavitary nodules are noted within the left lung. Additional non-cavitary nodules noted throughout both lungs. Esophagus is unremarkable. No hiatal hernia. THYROID: No significant thyroid lesions. BONES/JOINTS: Unremarkable. No suspicious lytic or blastic abnormality. VASCULATURE: Unremarkable. Thoracic aorta is non-dilated. No thoracic aortic dissection. No obvious central pulmonary embolism although this study was not performed with the pulmonary embolism protocol. CT/Chest WITH Contrast IMPRESSION: Large right lower lobe lung mass associated with multiple bilateral pulmonary nodules and extensive mediastinal and hilar lymphadenopathy. Individualized dose optimization techniques were used for this CT. at 1137 Reported and signed by: Julio Montemayor MD Electronically Signed: Julio Montemayor MD at 11:35 EDT ,
--- NOTE | 2021-09-17 10:26 | PCM.PROGNOTE ---
Subjective Subjective Afebrile VSS-heart rate has ranged from 89-104 over the past 36 hours. Maintaining appropriate oxygen saturation on RA Oral intake is adequate Discussed with nursing - He has developed a cough and has blood streaked sputum. He denies CP. He is a little more SOB today. No chills, no N/V, no dysuria and he denies lightheadedness. No sore throat and no nasal congestion. Has not had a COVID vaccine. No gross hemoptysis Reviewed the PT/OT/ST notes Medication list reviewed. He was converted to Lovenox last night due to thrombocytopenia suspected to be due to Eliquis. Known to have DVT LLE currently below the knee and he has a filter. He is still at risk for clot above the filter due to the Adenocarcinoma of the lungs. Has had multiple clots in the remote past of the legs and that is why the filter was placed. I reviewed the CXR done this AM. HE appears to have post obstructive infiltrates in the R base, vs enlarging tumor. There are also possible infiltrates in the Left lung in the lower half. No effusions. When compared to the CXR done on 08/20/21 there appears to be more extensive disease. Alert, does not appear acutely ill, not tachypneic at rest, HR is up a little. Lungs - there is decreased air exchange in both lungs today. No wheezing. Has increased air exchange in the RUL posterior along with crackles. No accessory muscle use, no tripoding and no respiratory distress. H-regular with HR in the low 100's. Impressions 1. AdenoCA of the lung with mass in the R base, BL nodules and extensive mediastinal adenopathy with mets to the brain(S/P craniotomy) and to multiple ribs. Also with hx of VTE prior to the cancer and has an IVC filter. Currently on Lovenox 1 mg/kg Q 13H. 2. New cough with blood tinges sputum. Does not appear acutely ill. Will start an antibiotic and order sputum culture, COVID PCR and respiratory panel. Will order a CT chest with contrast...possible pneumonia, possible PE, possible extension of CA, possible that the massive mediastinal adenopathy is partially obstructing air flow. Objective Data Objective Data Vital Signs: Vital Signs Temp Pulse Resp BP Pulse Ox 97.8 F 102 H 18 98/59 L 94 09/17/21 07:56 09/17/21 07:56 09/17/21 07:56 09/17/21 07:56 09/17/21 07:56 Oxygen Delivery Method Room Air Weight: 240 lb 8.389 oz Body Mass Index (BMI) 29.0 Intake & Output: Intake and Output for Last 24 Hours 09/15/21 09/16/21 09/17/21 23:59 23:59 23:59 Intake Total 840 / 840 800 / 800 60 / 60 Output Total 800 / 800 350 / 350 Balance 840 / 840 0 / 0 -290 / -290 Lab / Micro Data Result Diagrams: 09/16/21 05:36 09/16/21 05:36 Labs: Laboratory Results - last 24 hr 09/16/21 05:36: Albumin 2.0 L Charges/Coding Visit Charges Inpatient E&M: 26424 Subs Hosp L2
[2021-09-17 10:45] VITALS: PULSE 93; RESP 22
[2021-09-17] MEDS: Ceftriaxone 1 GM/50 ML BAG IV (13:59)
[2021-09-17] MEDS: 0.9% Saline Lock 10 ML Syringe IV ×2 (14:01→20:33)
[2021-09-17 15:13] VITALS: PULSE 88; RESP 18
[2021-09-17] MEDS: COVID-19 VACC, MRNA(PFIZER)/PF 30 MCG/0.3 ML SYRINGE IM (17:43)
[2021-09-17] MEDS: Tuberculin,Purif.prot.deriv. 50 TU/ML Vial 0.1 ML ID (17:54)
[2021-09-17 19:15] VITALS: PULSE 93; RESP 17
[2021-09-17 19:23] VITALS: BP 118/80; PULSE 81; RESP 16; TEMP 36.8; O2SAT 98
[2021-09-17] MEDS: Ketoconazole Cream 1 APPLIC TOPICAL (20:04)
[2021-09-17] MEDS: guaiFENesin 600 MG Tablet PO (20:26)
[2021-09-17] MEDS: Nystatin Powder 15gm Bottle 1 APPLIC TOPICAL (20:26)
[2021-09-17] MEDS: Doxycycline 100 MG CAPSULE PO (20:27)
[2021-09-17] MEDS: traZODone 50 MG Tablet PO (20:27)
[2021-09-17] MEDS: Atorvastatin Calcium 40 MG Tablet PO (20:27)
[2021-09-17] MEDS: Menthol/Lanolin/Calamine/Znox 113 GM Tube 1 APPLIC TOPICAL (20:43)
[2021-09-18] VITALS (8 sets, daily range): BP systolic 93–136; BP diastolic 58–74; PULSE 83–106; RESP 16–20; TEMP 36.7–37.3; O2SAT 92–93
[2021-09-18] MEDS: Pantoprazole Sodium 20 MG Tablet PO (06:41)
[2021-09-18] MEDS: Albuterol 2.5 MG/3 ML VIAL.NEB. INHALATION ×5 (07:00→22:57)
[2021-09-18] MEDS: Doxycycline 100 MG CAPSULE PO ×2 (08:44→22:44)
[2021-09-18] MEDS: levETIRAcetam 500 MG Tablet PO ×2 (08:44→20:19)
[2021-09-18] MEDS: Citalopram 20 MG Tablet PO (08:44)
[2021-09-18] MEDS: Multivitamins,Ther W-Minerals Tablet 1 TABLET PO (08:44)
[2021-09-18] MEDS: Enoxaparin 120 MG/0.8 ML Syringe 110 MG SC ×2 (08:44→20:12)
[2021-09-18] MEDS: guaiFENesin 600 MG Tablet PO ×2 (08:45→20:19)
[2021-09-18] MEDS: Sodium Chloride 1 GM Tablet PO ×2 (08:46→20:19)
--- NOTE | 2021-09-18 10:43 | PN_ITS ---
Subjective Subjective Day #2 doxycycline and Rocephin - await the results of the GM stain. Binta was seen on team rounds today. His Cherelle and her were present in the room. All questions were answered. Afebrile VSS-blood pressure today is 99/68 and he denies any lightheadedness. Maintaining appropriate oxygen saturation on RA - he was 98% saturated on room air last evening and this morning he was 92%. Heart rate is within normal limits. Oral intake is adequate. I reviewed the bundling machine operator's note from yesterday. Weight is stable Discussed with nursing - no problems that need addressed Reviewed the PT/OT/ST notes Medication list reviewed. All lab was personally reviewed and all radiology. Respiratory panel was negative. Covid was negative. Sputum Gram stain and culture are pending. no stool sample was sent yet. Still with bloody sputum. I spoke with Dr. Carmona today and he has still not received the documents from [facility]. He reviewed the CT scan done yesterday but, he can not make a plan for treatment until he sees the pathology and markers. It is likely that consult will not happen until after he is discharged from rehab. His dtr toured [facility] yesterday and unfortunately they will not take him if he is going to get palliative chemo/radiation. She is touring [facility] today. The CXR report yesterday mentions pneumonitis in the RLL but the CT scan did not. I suspect he does have pneumonitis. Binta tells me that there is less blood today in the sputum. I have not heard him coughing today. Yesterday I could hear rhonchi when I auscultated the neck and could also hear without a stethoscope when he was breathing. He has not been clearing his throat today either. He denies CP, chills, dysuria, constipation, abd pain, lightheadedness. He did very well in therapy today. Objective Data Objective Data Vital Signs: Vital Signs Temp Pulse Resp BP Pulse Ox 98.0 F 97 20 H 99/68 92 09/18/21 08:59 09/18/21 08:59 09/18/21 08:59 09/18/21 08:59 09/18/21 08:59 Oxygen Delivery Method Room Air Weight: 240 lb 8.389 oz Body Mass Index (BMI) 29.0 Intake & Output: Intake and Output for Last 24 Hours 09/16/21 09/17/21 09/18/21 23:59 23:59 23:59 Intake Total 800 / 800 870 / 870 300 / 300 Output Total 800 / 800 1200 / 1200 550 / 550 Balance 0 / 0 -330 / -330 -250 / -250 Lab / Micro Data Result Diagrams: 09/16/21 05:36 09/16/21 05:36 Labs: Laboratory Results - last 24 hr 09/17/21 11:50: COVID-19 (MANSI) Not Detected Micro: Microbiology 09/17/21 11:50 Mucosa - Nasopharyngeal Respiratory Panel (PCR) - Final 09/17/21 11:05 Nasal Secretion SARS-CoV-2 Antigen (Rapid) - Final Radiography Diagnostic Testing: Radiology Impression Chest X-Ray 09/17/21 09:24 IMPRESSION: Right infrahilar mass with pneumonitis in the right lower lobe. Questionable 1.4 cm nodule in the central portion of the left lung. Correlation with a CT scan of the thorax is recommended. Electronically Signed: Dallas Wilson MD at 13:25 EDT , Chest CT 09/17/21 10:18 IMPRESSION: Large right lower lobe lung mass associated with multiple bilateral pulmonary nodules and extensive mediastinal and hilar lymphadenopathy. Individualized dose optimization techniques were used for this CT. at 1137 Reported and signed by: Julio Montemayor MD Electronically Signed: Julio Montemayor MD at 11:35 EDT , Physical Exam Const alert, oriented x3 and no apparent distress General Appearance: cooperative Eyes no scleral icterus Resp Resp Narrative: Not tachypneic, no accessory muscle use, no respiratory distress, no crackles, no wheezing, no rhonchi when listening over the neck. He does have markedly diminished breath sounds in the right lower lobe. Cardio regular rate, regular rhythm, S1 normal heart sound, S2 normal heart sound and no gallops GI normal to inspection, nondistended, normoactive bowel sounds, soft to palpation and non-tender Extremity no calf tenderness and no pedal edema Skin General Skin Exam: no breakdown Rashes: no rashes Wounds: wounds noted Wound Narrative: the scalp incision is healing well with no dehiscence. T0--here is no swelling around the incision, no erythema and no DC. 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 (5) Metastatic adenocarcinoma to bone: (6) Depression: QUALIFIERS: Depression Type: major depressive disorder Major depression recurrence: unspecified whether recurrent Active/Remission status: currently active Major depression episode severity: unspecified Qualified Code(s): F32.9 - Major depressive disorder, single episode, unspecified (7) Status post craniotomy: (8) DVT (deep venous thrombosis): QUALIFIERS: DVT location: lower extremity Affected thrombotic vein of extremity: unspecified vein of extremity Chronicity: unspecified Lat erality: unspecified laterality Qualified Code(s): I82.409 - Acute embolism and thrombosis of unspecified deep veins of unspecified lower extremity (9) Hyponatremia: (10) Adenocarcinoma of lung: QUALIFIERS: Laterality: right Qualified Code(s): C34.91 - Malignant neoplasm of unspecified part of right bronchus or lung PLAN: 1. The risk of anticoagulation may outweigh the benefit at this point. I suspect that he does have pneumonitis.......GM stain and culture may not be helpful because the infection may be post obstructive. He has VTE distal to the Left knee and there is no pain or swelling. He has a filter. He has not been on Anticoagulation for AF because he has stayed in SR with the Flecainide and he has been in SR every time I have examined him on rehab. If the hemoptysis does not stop or it increase with need to DC the Lovenox......he would still be at risk for blood clots originating above the filter but, I think the benefit would outweigh the risk. 2. check a CBC with diff in the AM. He has been AF and had a normal WBC earlier this week. 3. He was seem in consult today by Dr. Jose Escobedo from pulmonary medicine and will DC the Rocephin but continue the Doxycycline for suspected post obstructive pneumonia. 4. Will go to [facility] on Wednesday. Has an appt with Dr. Carmona on 09/05/21. 5. will notify palliative where he will be going at [place].
[2021-09-18] MEDS: Flecainide 100 MG Tablet 50 MG PO ×2 (10:57→20:19)
[2021-09-18] MEDS: Ceftriaxone 1 GM/50 ML BAG IV (10:58)
--- NOTE | 2021-09-18 14:33 | CASEMGMT ---
Addendum entered by Trisha Castellano 09/19/21 14:29: Pt practiced car transfers in therapy. family want to transport pt at [place]. Cancelled w/c transport. Original Note: Social Work IDT met with patient, dtr and CHELSEA for Team meeting. Discussed patient's progress in PT/OT/ST and nursing. Pt progressing well. DC 09/21 to SNF. Pt and dtr prefer [facility]. Dtr is touring [facility] after Team meeting. IDT agrees to get w/c transport. Pt is unable to get in and out of car currently. Dtr requests [place] but they are not open on the weekends. Dtr agreeable to [facility]. Scheduled w/c transport for 1300. Plan: DC 09/21 to [facility], skilled MARIBEL Nathan
--- NOTE | 2021-09-18 14:34 | EX.PCM.CONCC ---
Assessment & Plan Assessment/Plan (1) Adenocarcinoma of lung: QUALIFIERS: Laterality: right Qualified Code(s): C34.91 - Malignant neoplasm of unspecified part of right bronchus or lung (2) Cough with hemoptysis: (3) DVT (deep venous thrombosis): QUALIFIERS: Affected thrombotic vein of extremity: unspecified vein of extremity Chronicity: unspecified DVT location: lower extremity Laterality: unspecified laterality Qualified Code(s): I82.409 - Acute embolism and thrombosis of unspecified deep veins of unspecified lower extremity PLAN: RECOMMENDATIONS: 1. Okay to transition to doxycycline to complete a 7-day course 2. Okay to continue with Lovenox for now 3. Await oncology recommendations on Wednesday 4. Discontinue Lovenox if thrombocytopenia worsens (less than 85) or hemoptysis greater than 2 ounces in 24 hours 5. Happy to follow as an outpatient if patient requests IMPRESSIONS: 1. Stage IV lung adenocarcinoma with hemoptysis and possible postobstructive pneumonia Patient currently is on Lovenox therapy secondary to a DVT. Patient does have a large hilar mass with mediastinal lymphadenopathy. Patient with only scant hemoptysis despite full anticoagulation at this time. In my opinion, it is likely not necessary to discontinue anticoagulation unless patient develops worsening thrombocytopenia or has hemoptysis greater than 2 ounces (Shawna cup) in a 24-hour period. Patient has multiple reasons for anticoagulation and this minimal amount of hemoptysis is likely not going to lead to any obstruction. Patient has had some improvement following initiation of antibiotics, so postobstructive pneumonia would be reasonable. Patient can likely be transitioned to doxycycline to complete a 7-day course. Happy to come back to have a family conference if requested, but oncology will be providing more insight. 2. Extensive smoking history/shortness of breath/probable postobstructive pneumonia Patient does have findings consistent with obstructive lung disease. Could evaluate patient at the outpatient office for possible obstructive lung disease such as COPD and optimization with bronchodilator therapy. This would likely require pulmonary function test for quantification clarification of lung function. Patient encouraged and educated on the dangers of smoking. 3. Thrombocytopenia/hypertension/hyperlipidemia/paroxysmal A. fib/DVT/chronic diastolic CHF/recent craniotomy Complicates care, management, recovery and prognosis. Continue to watch platelet count closely. Patient's history of alcoholism may account for decreased platelets, but patient also was recently started on heparin products. Patient does not appear to be acutely fluid overloaded at this time. HPI Consult Data Date of Consult: 09/18/21 HPI Narrative HPI Narrative: JUAN DAVID GARCIA is a 70 M, with past medical history listed below, who presented to [facility] on 09/03/2021 secondary to debility following excision of brain mass with recent craniotomy. Patient was subsequently found to have metastatic adenocarcinoma from the lung, but had also had persistent weakness, numbness and right foot drop. Over the course of patient's hospitalization, patient had reported some increased shortness of breath and the development of hemoptysis. Patient did have a CT scan of the chest that was personally reviewed showing a large hilar mass with supraclavicular node and associated mediastinal lymphadenopathy. Patient had been discussed with oncology, but they were still waiting on laboratory results from [facility]. Patient is reportedly to see oncology on Wednesday to develop a plan and may be discharged from rehab on Wednesday. Patient was placed on antibiotics yesterday secondary to worsening shortness of breath and diminished breath sounds. Patient also reportedly had hemoptysis and upper airway noise. Patient describes the hemoptysis as blood-tinged and smaller than a dime. Patient does have therapy with Lovenox secondary to a DVT of the lower extremity. Patient does have a filter in place. Patient overall feels subjectively improved today compared to yesterday. Patient has been able to tolerate room air. Patient does have an extensive smoking history along with alcoholism. Patient states he anticipates being aggressive with his available options. Patient does have a daughter, but she was not present during my interview. Did discuss with Dr. Lockett at length. Patient's clinical questions include: Direction on antibiotics and risk-benefit ratio of Lovenox therapy. Review of systems otherwise negative from a constitutional, HEENT, respiratory, cardiovascular, GI, genitourinary, musculoskeletal, skin, neurologic, psychiatric and hematologic system unless stated above. [facility] Medical History Abnormal stress test Alcoholism in remission Cardiomyopathy in disease classified elsewhere Chronic diastolic heart failure Depression Edema Essential (primary) hypertension Hyperlipidemia Paroxysmal atrial fibrillation Prostatic enlargement Home Medications atorvastatin 40 mg PO QHS 09/02/21 [History Last Taken Unknown] citalopram [Celexa] 20 mg PO DAILY 09/02/21 [History Last Taken Unknown] dexamethasone 4 mg PO BID 09/02/21 [History Last Taken Unknown] folic acid 1 mg PO DAILY 09/02/21 [History Last Taken Unknown] ketoconazole [Nizoral] 1 applic TOPICAL QHS 09/02/21 [History Last Taken Unknown] levetiracetam [Keppra] 1,000 mg PO BID 09/02/21 [History Last Taken Unknown] nystatin 1 applic TOPICAL BID 09/02/21 [History Last Taken Unknown] pantoprazole [Protonix] 40 mg PO DAILY 09/02/21 [History Last Taken Unknown] sodium chloride 1,000 mg PO TID 09/02/21 [History Last Taken Unknown] thiamine HCl (vitamin B1) [Vitamin B-1] 100 mg PO DAILY 09/02/21 [History Last Taken Unknown] carvedilol 25 mg tablet See Rx Instructions .ROUTE .COMPLEX #180 tablet 09/15/21 [Rx Last Taken Unknown] flecainide 50 mg tablet See Rx Instructions .ROUTE .COMPLEX #180 tablet 09/15/21 [Rx Last Taken Unknown] lisinopril 10 mg tablet 10 mg PO QDAY #90 tab 09/15/21 [Rx Last Taken Unknown] Allergy/AdvReac Type Severity Reaction Status Date / Time No Known Allergies Allergy Verified 08/20/21 19:47 Family History Mother CAD (coronary artery disease) Diabetes Hypertension HLD (hyperlipidemia) Father Cancer Surgical History History of left heart catheterization (11/14/12) History of tonsillectomy Status post craniotomy Social History adopted: No household members: other details: spouse passed in 2017 and he has been very depressed since then housing: other details: double wide trailer number of children: 3 current occupational status: retired Smoking Status: Current every day smoker tobacco type: cigarettes Tobacco: How many years used: 45 quit status: quit date established counseling given: provider counseling alcohol intake: former details: He quit drinking 13-14 years ago when his gave him and ultimatum substance use type: does not use caffeine: Yes Type: coffee what type of physical activity do you participate in: none seatbelt use: always do you feel safe at home: Yes ROS ROS Narrative See HPI Physical Exam Const alert, oriented x3 and no apparent distress General Appearance: cooperative, well kempt and well developed HEENT moist oral mucous membranes Nose: external nose normal Mouth: oral and palatal mucosa normal and tongue normal Eyes PERRL, conjunctivae normal and no scleral icterus Resp normal respiratory effort Resp Narrative: Decreased breath sounds in the right base without rhonchi. No crackles. Not tachypneic, no conversational dyspnea. Cardio regular rate, regular rhythm, no murmurs, no rub and no gallops GI normal to inspection, nondistended, normoactive bowel sounds, soft to palpation and non-tender Extremity no calf tenderness and no pedal edema Extremity Narrative: Right foot drop, but brace in place. General Extremity: Negative for clubbing Skin General Skin Exam: no breakdown Rashes: no rashes Psych affect normal, denies hallucinations and denies homicidal ideation Mood & Affect: anxious Lab / Micro Data Result Diagrams: 09/16/21 05:36 09/16/21 05:36 Micro: Microbiology 09/17/21 11:50 Mucosa - Nasopharyngeal Respiratory Panel (PCR) - Final 09/17/21 11:05 Nasal Secretion SARS-CoV-2 Antigen (Rapid) - Final Charges/Coding Visit Charges Inpatient E&M: 97502 Init Hosp L2
--- NOTE | 2021-09-18 14:43 | CHAPLAIN ---
Type of Pastoral Visit ___ Initial Visit _x__ Follow-up Visit ___ On-call Visit ___ General Patient Visit ___ Spiritual Assessment ___ Family Conference ___ Bereavement ___ Rapid Response ___ Code Blue ___ Other (describe below) Pastoral Care Referral From _x__ Patient ___ Family ___ Nurse ___ Physician ___ Strapper Operator ___ Rotary Shear Cutter ___ Other (describe below) Sacrament/Intervention _x__ Active listening ___ Anointing ___ Congregation ___ Bereavement ___ Communion _x__ Cheryl exploration ___ _x__ Life review _x__ Prayer ___ Reconciliation ___ Sacrament of Sick _x__ Supportive presence ___ Wedding ___ Other (describe below) Pastoral Comments patient requested this follow up visit; pt speaks openly about his disease progression and how it is not curable; pt speaks of how his handled her last months and days which inspired him; pt has renewed cheryl in God and finds comfort in God's amol at this time; family members come into room at this time; visit wraps up and prayer is offered
[2021-09-18] MEDS: Carvedilol 3.125 MG TABLET PO (20:18)
[2021-09-18] MEDS: traZODone 50 MG Tablet PO (20:18)
[2021-09-18] MEDS: Atorvastatin Calcium 40 MG Tablet PO (20:19)
[2021-09-18] MEDS: 0.9% Saline Lock 10 ML Syringe IV (20:21)
[2021-09-18] MEDS: Ketoconazole Cream 1 APPLIC TOPICAL (20:22)
[2021-09-18] MEDS: Menthol/Lanolin/Calamine/Znox 113 GM Tube 1 APPLIC TOPICAL (20:25)
[2021-09-18] MEDS: Nystatin Powder 15gm Bottle 1 APPLIC TOPICAL (20:25)
[2021-09-19] MEDS: Pantoprazole Sodium 20 MG Tablet PO (06:01)
[2021-09-19] MEDS: Menthol/Lanolin/Calamine/Znox 113 GM Tube 1 APPLIC TOPICAL ×2 (06:03→20:10)
[2021-09-19] MEDS: Nystatin Powder 15gm Bottle 1 APPLIC TOPICAL ×2 (06:03→20:11)
[2021-09-19 06:25] LABS: Absolute Lymphocyte Count 0.87 X10^3/uL (0.83-4.51); Absolute Neutrophil Count 3.8 X10^3/uL (2.0-7.7); Basophil# 0.02 X10^3/uL; Basophil% 0.4 % (0-1); Eosinophil# 0.18 X10^3/uL; Eosinophils% 3.3 % (0-5); Hematocrit 35.1 % (40-54); Hemoglobin 11.8 g/dL (13.0-16.5); Lymphocyte # 0.87 X10^3/ul (0.83-4.51); Lymphocyte % 15.8 % (19-41); Mean Corp Hgb Conc 33.6 g/dL (32-36); Mean Corpuscular Hgb 31.4 pg (27.0-32.0); Mean Corpuscular Volume 93.4 fL (80-94); Mean Platelet Vol. 11.3 fl (6.2-12.0); Monocyte# 0.57 X10^3/uL; Monocyte% 10.3 % (0-10); NRBC Flagged by Analyzer 0 % (0-5); Neutrophil # 3.78 X10^3/uL (2.7-7.7); Neutrophil % 68.6 % (47-70); Platelet Count 153 K/mm3 (150-450); RBC Distribution Width CV 17.6 % (11.6-14.6); RBC Distribution Width SD 60.5 fl (35.1-43.9); Red Blood Count 3.76 M/mm3 (4.6-6.2); White Blood Count 5.5 K/mm3 (4.4-11.0)
[2021-09-19] MEDS: Albuterol 2.5 MG/3 ML VIAL.NEB. INHALATION ×4 (06:55→18:57)
[2021-09-19 06:56] VITALS: PULSE 90; RESP 18; O2SAT 96
[2021-09-19 07:36] VITALS: BP 130/86; PULSE 110; RESP 20; TEMP 37.3; O2SAT 92
[2021-09-19] MEDS: guaiFENesin 600 MG Tablet PO ×2 (07:43→20:06)
[2021-09-19] MEDS: Multivitamins,Ther W-Minerals Tablet 1 TABLET PO (07:43)
[2021-09-19] MEDS: Sodium Chloride 1 GM Tablet PO ×2 (07:44→20:06)
[2021-09-19] MEDS: Citalopram 20 MG Tablet PO (07:45)
[2021-09-19] MEDS: Flecainide 100 MG Tablet 50 MG PO ×2 (07:45→20:03)
[2021-09-19] MEDS: Carvedilol 3.125 MG TABLET PO ×2 (07:48→20:04)
[2021-09-19] MEDS: Enoxaparin 120 MG/0.8 ML Syringe 110 MG SC ×2 (07:49→20:04)
[2021-09-19] MEDS: levETIRAcetam 500 MG Tablet PO ×2 (07:51→20:06)
--- NOTE | 2021-09-19 09:53 | PCM.PN.BLA ---
Progress Note Blood pressure is much improved with decreasing the Coreg dose. Blood pressure today is 130/86 with a heart rate of 110. Oxygen saturation on room air has ranged from 92 to 96% over the past 24 hours. Temp is 99.1 this AM which is within normal limits. Nursing reports no problems overnight. All lab today was personally reviewed. Hemoglobin is 11.8, down from 12.3 on 09/16/2021. The white blood cell count is within normal limits. Platelet count is back up to 153,000 with the discontinuation of Eliquis. WBC differential shows 68.6% neutrophils with 1.6% immature granulocytes. Sputum culture is growing 2+ group G strep. We have not received the sputum Gram stain yet. Has not had a BM since Wednesday so the hemoccult has not been done yet. He does not feel constipated. Denies N/V/abd pain and he is eating very well. Sleeping well with the Trazodone and no problems with urine retention. Alert, NAD cooperative, comfortable able to get in and out of the car today and will be transported to [facility] by family on Wednesday. Dr. Carmona has now received all the paperwork he will need for [facility]'s appt on Wednesday. H - increased resting HR but regular. No gallop no peripheral edema. Sputum with just a few blood streaks occasionally Abd is soft with normal BS's and no guarding with palpation Impressions 1. adenocarcinoma of the lung with mets to the brain and the the ribs. 2. Probable COPD 3. post obstructive pneumonitis - will continue the Doxycycline for a total of 7 days 4. HX of VTE in past, hx of IVC filter placement and active DVT in the LLE. On Lovenox for AF and VTE 5. very mild hemoptysis - due to pneumonitis - no need to stop anticoagulation at this time. Start Ferrous sulfate and Vitamin C 6. depression - much better 7. Thrombocytopenia - resolved with the discontinuation of the Eliquis Visit Charges Inpatient E&M: 02762 Subs Hosp L2
[2021-09-19 10:40] VITALS: PULSE 90; RESP 18
[2021-09-19] MEDS: Doxycycline 100 MG CAPSULE PO ×2 (11:07→20:06)
--- NOTE | 2021-09-19 11:26 | TREXTCAR_ITS ---
Diet 09/03/21 16:59 Diet: Regular - No Added Salt Type of Dietary Supplement:: Ensure Compact Is pt able to select menu?: Yes Tube Feed: N/A Routine Orders/Code Status Enema Type: Fleetz Enema Frequency: Daily PRN Suppository Type: Dulcolax 10mg Suppository Frequency: Daily PRN O2 Liters per Minute: 2-3 LPM O2 Frequency: PRN Keep PO Greater than or Equal to (%): 90 Routine Lab Work: CBC and - (AMP, CBC on 09/23/21) Code Status: Full Code Wound(s) TOP OF HEAD: Wound Type: Surgical Incision (sutures have been removed and it is healing well with no erythema and no DC. Leave open to air.) R LOWER JOHNSON: Wound Type: Abrasion (I suspect this is due to chronic venous insufficiency with stasis dermatitis. 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 Atkins at [facility] to remove a single metastatic lesion. (5) Adenocarcinoma of lung: Status: Acute Comment: With extensive mediastinal adenopathy, 9X10cm mass in the RLL extending into the hilum, multiple nodules, metastatic cerebral mass and lytic rib lesions. (6) Metastatic adenocarcinoma to bone: Status: Acute (7) DVT (deep venous thrombosis): Status: Acute Comment: distal to the Left knee. 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 Plt's normal again following transition to Lovenox BID (10) Low blood pressure, not hypotension: Status: Resolved Comment: Resolved with decreasing the dose of the Coreg (11) Depression: Status: Acute Comment: Much improved on Citalopram (12) Hyponatremia: Status: Acute Comment: due to SIADH +/- Citalopram (13) Dry mouth: Status: Acute Comment: Better with PRN Biotene mouthwash or spray (14) ZELAYA (dyspnea on exertion): Status: Acute (15) Constipation: Status: Resolved (16) Paroxysmal atrial fibrillation with RVR: Status: Resolved Comment: has been stable for a long time on Flecainide and had been off anticoagulation prior to recent DVT LLE and diagnosis of CA (17) Prostatic enlargement: Status: Chronic Comment: no urine retention (18) Hyperglycemia, drug-induced: Status: Acute (19) Tobacco dependence: Status: Acute Comment: currently in remission (20) Essential (primary) hypertension: Status: Chronic (21) Hyperlipidemia: Status: Chronic (22) Paroxysmal atrial fibrillation: Status: Chronic (23) 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 Allergies/Procedures Done in Hospital Allergies No Known Allergies Allergy (Verified 08/20/21 19:47) Procedures: None Type of Care/Length of Stay Estimated LOS: Convalescent Care Less Than 30 days Type of Care Needed: Skilled Rehab Potential: Good Prognosis: Poor Additional Orders/Day of Discharge Additional Orders: He had a palliative care consult in the hospital and they will likely follow up with him post DC from acute inpt rehab. He has a hemoccult stool ordered but, at the time of this document it has not been collected yet. The hemoptysis was very mild...blood streaked sputum for a few days while thrombocytopenic from the Eliquis. IF the hemoptysis is > 1 clover cup a day will need to DC the anticoagulation. Moisturize his legs 1-2 times a day to control the venous stasis dermatitis and prevent venous stasis ulcers. Must wear MAYKEL hose, knee high, anytime he is out of bed to control the edema which is due to venous insufficiency. H&P will serve as current which was dated: 09/02/21 Day of Discharge: 09/21/21 Dietary and Speech Recommendations Dietitian Recommendations/Changes: continue regular-- no added salt diet and 120mL ensure compact TID w/ meals for additional calories/protein if consumed. Will watch wt trends closely to further assess for malnutrition. Follow Up Care Please follow up with your Primary Care Physician in: Dr. Angela Joshua Please Follow Up With: Ramon Carmona MD When: 09/22/21 at 10 AM Please Follow Up With: Hima Steven DO Discharge Plan Admission Admit Date/Time: 09/02/21 15:38 Primary Reason for Your Visit: Debility due to recent craniotomy and adenocarcinoma of the lung Attending Provider: Perri Lockett Primary Care Provider: Care Physician,No Primary Consulting Providers: Jose Escobedo ; Buck Arce ; Zaira Brock INSTRUCTOR NURSE Discharge Orders/Prescriptions Prescriptions: New levetiracetam 500 mg Tablet 500 mg PO BID Qty: 0 RF: 0 carvedilol 3.125 mg Tablet 3.125 mg PO BID Qty: 0 RF: 0 pantoprazole 20 mg Tablet,Delayed Release (Dr/Ec) 20 mg PO DAILY@0600 Qty: 1 RF: 0 sodium chloride 1,000 mg Tablet,Soluble 1,000 mg PO BID Qty: 0 RF: 0 albuterol sulfate 2.5 mg /3 mL (0.083 %) Solution For Nebulization 2.5 mg inhalation Q4HWA.RT Qty: 0 RF: 0 bisacodyl 10 mg Suppository 10 mg FL .PRN X 1 PRN (Reason: Constipation) Qty: 0 RF: 0 magnesium hydroxide 400 mg/5 mL Suspension 30 ml PO .PRN X 1 PRN (Reason: Constipation) Qty: 0 RF: 0 doxycycline monohydrate 100 mg Capsule 100 mg PO BID Qty: 0 RF: 0 enoxaparin 120 mg/0.8 mL Syringe 110 mg subcut 0800,1999 Qty: 0 RF: 0 guaifenesin [Mucus Relief ER] 600 mg Tablet Extended Release 12hr 600 mg PO BID Qty: 0 RF: 0 Emollient Combination No.72 [Eucerin Intensive Repair] 1 applic topical BID Qty: 0 RF: 0 menthol-zinc oxide [Calmoseptine] 0.44-20.6 % Ointment 1 applic topical BID@0600,2200 Qty: 0 RF: 0 sennosides-docusate sodium [Stool Softener-Stimulant Laxat] 8.6-50 mg Tablet 2 tab PO DAILY Qty: 60 RF: 0 Biotene Dry Mouth Oral Rinse Mouthwash 15 ml mucous membrane 5X/DAY PRN (Reason: Dry Mouth) Qty: 0 RF: 0 Multivitamins,Ther W-Minerals [Multivitamin With Minerals (Bkc)] 1 tab PO BREAKFAST Qty: 0 RF: 0 trazodone 50 mg Tablet 50 mg PO QHS Qty: 0 RF: 0 Continued nystatin 100,000 unit/gram Powder 1 applic TOPICAL BID RF: 0 ketoconazole 2 % Cream 1 applic TOPICAL QHS RF: 0 atorvastatin 40 mg tablet 40 mg PO QHS RF: 0 citalopram [Celexa] 20 mg tablet 20 mg PO DAILY RF: 0 flecainide 50 mg tablet See Rx Instructions .ROUTE .COMPLEX Qty: 180 RF: 3 Discontinued sodium chloride 1 gram Tablet 1,000 mg PO TID RF: 0 thiamine HCl (vitamin B1) [Vitamin B-1] 100 mg Tablet 100 mg PO DAILY RF: 0 pantoprazole [Protonix] 40 mg Tablet,Delayed Release (Dr/Ec) 40 mg PO DAILY RF: 0 dexamethasone 4 mg Tablet 4 mg PO BID RF: 0 folic acid 1 mg Tablet 1 mg PO DAILY RF: 0 levetiracetam [Keppra] 1,000 mg Tablet 1,000 mg PO BID RF: 0 lisinopril 10 mg tablet 10 mg PO QDAY Qty: 90 RF: 3 carvedilol 25 mg tablet See Rx Instructions .ROUTE .COMPLEX Qty: 180 RF: 3 Referrals / Follow Up: DR Robert Atkins [Other] (Neurology Surgeon ) Ramon Carmona MD [NON-STAFF] - 09/22/21 10:00 am Angela Joshua DO [STAFF PHYSICIAN] - Hima Steven DO [NON-STAFF] - (office will call to make appointment ) Cherelle Helms NP, INSTRUCTOR NURSE-C [Nurse Practitioner] - 09/25/21 9:30 am Disposition Disposition (needs filled in before D/C Order can be placed): [facility]
--- NOTE | 2021-09-19 12:19 | PCM.DC.SUM ---
Providers Date of Admission: 09/02/21 Primary Care Physician: Dr. Angela Joshua Consultations 09/18/21 12:54 Consult: Utilities And Maintenance Supervisor / Pulmonary Medicine Routine Consulting Provider: Pulmonary Medicine janel [place] Reason for Consult: Lung CA/ nodules EMERGENT Consult: No MD Notified: Yes Date Notified: 09/18/21 Time Notified: 12:54 Method of Notification: Text Comments:: Dr. Lockett notified Dr. Escobedo via text message Reason For Visit: Debility due to craniotomy and AdenoCA of the lung Diagnosis Discharge Diagnosis (1) Physical debility: Status: Acute Code(s): R53.81 - Other malaise (2) Foot drop, right: Status: Chronic Code(s): M21.371 - Foot drop, right foot (3) Brain neoplasm malignant: Status: Acute Code(s): C71.9 - Malignant neoplasm of brain, unspecified Qualifiers: Malignant neoplasm of brain location: parietal lobe Qualified Code(s): C71.3 - Malignant neoplasm of parietal lobe (4) Status post craniotomy: Status: Acute Code(s): Z98.890 - Other specified postprocedural states (5) Adenocarcinoma of lung: Status: Acute Code(s): C34.90 - Malignant neoplasm of unspecified part of unspecified bronchus or lung Qualifiers: Laterality: right Qualified Code(s): C34.91 - Malignant neoplasm of unspecified part of right bronchus or lung (6) Metastatic adenocarcinoma to bone: Status: Acute Code(s): C79.51 - Secondary malignant neoplasm of bone (7) DVT (deep venous thrombosis): Status: Acute Code(s): I82.409 - Acute embolism and thrombosis of unspecified deep veins of unspecified lower extremity Qualifiers: Affected thrombotic vein of extremity: unspecified vein of extremity Chronicity: unspecified DVT location: lower extremity Laterality: unspecified laterality Qualified Code(s): I82.409 - Acute embolism and thrombosis of unspecified deep veins of unspecified lower extremity (8) Cough with hemoptysis: Status: Acute Code(s): R04.2 - Hemoptysis (9) Thrombocytopenia: Status: Resolved Code(s): D69.6 - Thrombocytopenia, unspecified (10) Low blood pressure, not hypotension: Status: Resolved Code(s): R03.1 - Nonspecific low blood-pressure reading (11) Depression: Status: Acute Code(s): F32.A - Depression, unspecified Qualifiers: Active/Remission status: currently active Depression Type: major depressive disorder Major depression episode severity: unspecified Major depression recurrence: unspecified whether recurrent Qualified Code(s): F32.9 - Major depressive disorder, single episode, unspecified (12) Hyponatremia: Status: Acute Code(s): E87.1 - Hypo-osmolality and hyponatremia (13) Dry mouth: Status: Acute Code(s): R68.2 - Dry mouth, unspecified (14) ZELAYA (dyspnea on exertion): Status: Acute Code(s): R06.00 - Dyspnea, unspecified (15) Constipation: Status: Resolved Code(s): K59.00 - Constipation, unspecified Qualifiers: Constipation type: unspecified constipation type Qualified Code(s): K59.00 - Constipation, unspecified (16) Paroxysmal atrial fibrillation with RVR: Status: Resolved Code(s): I48.0 - Paroxysmal atrial fibrillation (17) Prostatic enlargement: Status: Chronic Code(s): N40.0 - Benign prostatic hyperplasia without lower urinary tract symptoms (18) Hyperglycemia, drug-induced: Status: Acute Code(s): R73.9 - Hyperglycemia, unspecified; T50.905A - Adverse effect of unspecified drugs, medicaments and biological substances, initial encounter (19) Tobacco dependence: Status: Acute Code(s): F17.200 - Nicotine dependence, unspecified, uncomplicated (20) Essential (primary) hypertension: Status: Chronic Code(s): I10 - Essential (primary) hypertension (21) Hyperlipidemia: Status: Chronic Code(s): E78.5 - Hyperlipidemia, unspecified Qualifiers: Hyperlipidemia type: pure hypercholesterolemia Qualified Code(s): E78.00 - Pure hypercholesterolemia, unspecified; E78.0 - Pure hypercholesterolemia (22) Paroxysmal atrial fibrillation: Status: Chronic Code(s): I48.0 - Paroxysmal atrial fibrillation (23) Alcoholism in remission: Status: Acute Code(s): F10.21 - Alcohol dependence, in remission (24) Chronic diastolic heart failure: Status: Chronic Code(s): I50.32 - Chronic diastolic (congestive) heart failure Plan: DC to [facility] for further PT/OT prior to going home. Has a consult with Dr. Carmona on 09/22/21 Will follow up with Dr. Steven for palliative radiation Follow up with Dr. Feldman (neurosurgery) Follow up with Dr. Angela Joshua for primary care BMP and CBC on 09/23/21 Medications at Discharge Home Medications atorvastatin 40 mg PO QHS 09/02/21 citalopram [Celexa] 20 mg PO DAILY 09/02/21 ketoconazole 1 applic TOPICAL QHS 09/02/21 nystatin 1 applic TOPICAL BID 09/02/21 flecainide 50 mg tablet See Rx Instructions .ROUTE .COMPLEX #180 tablet 09/15/21 Emollient Combination No.72 [Eucerin Intensive Repair] 1 applic TOPICAL BID #0 09/19/21 Multivitamins,Ther W-Minerals [Multivitamin With Minerals (BKC)] 1 tab PO BREAKFAST #0 09/19/21 albuterol sulfate 2.5 mg INHALATION Q4HWA.RT #0 ml 09/19/21 bisacodyl 10 mg AL .PRN X 1 PRN #0 ea 09/19/21 carvedilol 3.125 mg PO BID #0 tab 09/19/21 doxycycline monohydrate 100 mg PO BID #0 cap 09/19/21 enoxaparin 110 mg SUBCUT 0800,2000 #0 ml 09/19/21 guaifenesin [Mucus Relief ER] 600 mg PO BID #0 tab 09/19/21 levetiracetam 500 mg PO BID #0 tab 09/19/21 magnesium hydroxide 30 ml PO .PRN X 1 PRN #0 ml 09/19/21 menthol-zinc oxide [Calmoseptine] 1 applic TOPICAL BID@0600,2200 #0 g 09/19/21 pantoprazole 20 mg PO DAILY@0600 #1 tab 09/19/21 saliva substitute combo no.9 [Biotene Dry Mouth Oral Rinse] 15 ml MUCOUS MEMBRANE 5X/DAY PRN #0 ml 09/19/21 sennosides-docusate sodium [Stool Softener-Stimulant Laxat] 2 tab PO DAILY #60 tab 09/19/21 sodium chloride 1,000 mg PO BID #0 tab 09/19/21 trazodone 50 mg PO QHS #0 tab 09/19/21 Hospital Course Operations - (Craniotomy and removal of tumor 3/21/[address] Feldman) Procedures None Summary of Care Provided Minutes Spent on Discharge: 50 Hospital Course: JUAN DAVID GARCIA, is a 70 YO M with a PMH of PAF (controlled with Flecainide), tobacco dependence, hx of alcoholism (in recovery for 13 years now), hypertension, hyperlipidemia, BPH, chronic diastolic congestive heart failure and nonobstructive coronary artery disease on cardiac cath in 2012. Who presented to the ED at [facility] on 08/20/21 c/o weakness for the preceding 2 weeks, redness of the R leg and difficulty ambulating due to not being able to lift the R foot. He also stated the R foot had become numb. At the time he presented to the ED he could not stand without help. He appeared unkempt in the ED. On PE he appeared to have a mild cellulitis of the R ankle and foot but, he was unable to dorsiflex the R foot and there was decreased sensation. A NC CT brain was obtained to evaluate for stroke. The CT showed cerebral edema on the left side of his brain without an obvious etiology. MRI was not available so a CT contrast was ordered and it showed a mass in the high right parietal lobe. While in the ED he went into PAF and became hypotensive and he was treated with IV fluids and Digoxin. He had previously been diagnosed with PAF and had been on an anticoagulant but, the last cardiology note from [facility] stated he was maintaining SR on Flecainide. He was transferred from the ED to [facility] to be evaluated by neurosurgery for the cerebral mass. W/U at [facility] included a CT scan of the chest which showed multiple nodules, a 9X10 cm mass in the RLL with extension into the subcarinal region and the R hilum, extensive mediastinal adenopathy and lytic rib lesions. An ECHO showed a nl EF but, the R ventricle was significantly dilated. He was taken to the OR on 08/25/[address] Atkins for a left craniotomy and tumor excision. Frozen section was consistent with metastatic carcinoma. The final path report documented Metastatic adenocarcinoma with a pulmonary primary. Post operative complications included DVT in the L peroneal V and the L gastrocnemius V and hyponatremia. He was started on NaCl tabs. He was seen by therapy post operatively and acute inpt rehab was recommended. He was transferred to the acute inpt rehab unit at [facility] on 09/02/21 for 3 hours of therapy daily to restore function/independence at or near his prior level of function. He is going to follow up with Dr. Carmona from oncology, Dr. Steven from radiation oncology and with Dr. Atkins going forward. Binta did very well in therapy. With reinstitution of the Citalopram his depression improved significantly. He had a good appetite and slept well with the addition of 50 mg of Trazodone to his drug regimen. I think he benefitted from socialization as well since he has been at home, isolated and depressed for the past 4 years since his . He was no longer tearful at DC and he was motivated to move on and start tx for his CA. He was initially on Lovenox for DVT prophylaxis after the craniotomy. He had a venous US at the previous hospital and it showed VTE in 2 veins in the distal left leg. 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 After another 7-10 days he was transitioned to Eliquis. He developed thrombocytopenia that resolved with discontinuation of the Eliquis. He was started on therapeutic Lovenox 110 mg Q 12H and the Platelets are stable. He has a heme negative stool just prior to DC. Binta developed a post obstructive pneumonitis in the RLL while in rehab and had blood streaked sputum. He was started on Rocephin and Doxycycline and Respiratory panel, GM stain C&S and COVID testing was ordered. Albuterol aerosols were continued and he was started on Mucinex. COVID and respiratory panel were negative. The sputum gram stain showed 2+ white blood cells and 4+ gram-negative coccobacilli, 4+ gram-positive cocci, 4+ gram-negative rods and 3+ gram-positive rods. It was an acceptable specimen with less than 25 epithelial cells per low power field. Urine culture was positive for group G strep. Because of the hemoptysis and the pneumonitis Dr. Escobedo was consulted. He recommended continuing Doxycycline and discontinuing Rocephin. He also recommended continuing anticoagulation unless the hemoptysis was equal to a [place] cup of blood and then it should be discontinued. The cough was mostly gone at the time of DC and there was only a small streak of blood in the clear mucous. Binta has had AF for a long time. Anticoagulation for this was discontinued by his inspector bullet slugs because while on Flecainide he had no PAF. He was on Coreg 25 mg BID at admission to rehab and this was weaned down to 3.125 mg BID prior to DC due to low BP's and lightheadedness. At the time of discharge his heart rate was 98 with a blood pressure of 124/80. He denied lightheadedness. Binta has had a lot of change in his life in the past month. He was diagnosed with cancer, had to sell his trailer where he and his resided for a number of years and now is being transferred to an SNF. With the CA and possible chemo/radiation I do not know if her will have the strength to return safely to independent living. We had a discussion about this and he vows to do whatever he has to do. While in rehab he was seen in consult by palliative care and Binta is agreeable to signing up for transfer after transfer to [facility]. His sodium was 135 prior to admission. He was on 1 GM of NACL TID at presentation to rehab for hyponatremia due to cerebral salt wasting after the craniotomy. Citalopram may also be contributing to the mildly decreased sodium and he could have SIADH due to the CA although this is more commonly seen with small cell lung cancer. While in rehab the Salt Tabs were decreased to BID and the NA remains stable between 134-135. Binta was discharged to [facility] on 09/21/21. He has an appt with Dr. Carmona on 09/22/21 to discuss his case and make a plan for treatment. He will also follow up with Dr. Steven and Dr. Feldman post DC. He was given a list of local PCP's to choose a PCP and he chose either Dr. Angela Joshua or Dr. George Shay. Palliative care was notified of his transfer to [facility] at the time of DC and they will follow up with him there. Physical Exam Const alert, oriented x3 and no apparent distress Constitutional Narrative: Lying in bed watching TV when I entered the room. He did not appear to be in any distress. General Appearance: cooperative, comfortable, well kempt and well developed HEENT moist oral mucous membranes and oropharynx normal HEENT Narrative: No thrush Eyes PERRL, EOMs intact bilaterally, conjunctivae normal and no scleral icterus Neck no lymphadenopathy, supple and thyroid normal General: normal visual inspection and trachea midline Chest Chest: symmetrical chest wall rise Resp Resp Narrative: Diminished throughout but, markedly diminished in the RLL. No wheezing today. He continues to use the IS and the Acapella at the bedside and will continue this for the rest of his life. No rhonchi and no crackles today. He is not tachypneic and he has no conversational dyspnea. Cardio no murmurs, no rub and no gallops Cardio Narrative: He is irregular today but, up until today he has been in SR every time I examined him. Highest HR is 112 on Coreg 3.125 mg BID. Heart sounds are distant and he has increased AP diameter of the chest. GI normal to inspection, nondistended, normoactive bowel sounds, soft to palpation, non-tender and no bruits GI Narrative: No masses and no hepatosplenomegaly. No guarding with palpation. Narrative: no urine retention Extremity no calf tenderness and no pedal edema General Extremity: Negative for clubbing or cyanosis Skin Skin Narrative: The craniotomy incision is healing and there is no swelling, erythema or DC from the incision. Tru were removed last week. General Skin Exam: no breakdown Rashes: no rashes Neuro oriented x3, CN's II-XII intact bilaterally and moves all extremities Neuro Narrative: He has weakness and decreased sensation in the RLE distal to the knee. He now has a AFO for the RLE to prevent foot drop and it has helped considerably with ambulation. Psych mental status grossly normal, thought process normal, cooperative, speech normal, denies hallucinations, denies homicidal ideation and denies suicidal ideation Appearance: grossly normal, appropriate and well kempt Attitude: calm Activity / Motor Behavior: appropriate eye contact; Negative for psychomotor agitation, psychomotor slowing, fidgetting, hyperactive or disorganized Speech: normal speech Mood & Affect: anxious and other He is anxious about his appt with Dr. Carmona. He is not ready to and although he knows the cancer is not curable he wants to live as long as he can as long as he has quality of life ; Negative for tearful Thought Process: No flight of ideas Thought Content: No delusion(s) and No depersonalization Attention / Concentration: attention grossly intact Memory / Cognition: memory grossly intact Insight: fair Judgement: judgement good Weight / BMI Weight Weight: 244 lb 4.355 oz Body Mass Index (BMI) 29.0 ABG / Lab / Microbiology Data Result Diagrams: 09/19/21 06:02 09/16/21 05:36 Laboratory: Laboratory Results - last 24 hr 09/19/21 06:02: WBC 5.5, RBC 3.76 L, Hgb 11.8 L, Hct 35.1 L, MCV 93.4, MCH 31.4, MCHC 33.6, RDW Std Deviation 60.5 H, RDW Coeff of [place] 17.6 H, Plt Count 153, MPV 11.3, Immature Gran % (Auto) 1.600 H, Neut % (Auto) 68.6, Lymph % (Auto) 15.8 L, [place] % (Auto) 10.3 H, Eos % (Auto) 3.3, Baso % (Auto) 0.4, Absolute Neuts (auto) 3.8, Absolute Lymphs (auto) 0.87, Nucleated RBC % 0 Microbiology: Microbiology 09/17/21 14:00 Sputum, Expectorated/Coughed Gram Stain - Final 09/17/21 14:00 Sputum, Expectorated/Coughed Respiratory Culture - Final Streptococcus group G 09/17/21 11:50 Mucosa - Nasopharyngeal Respiratory Panel (PCR) - Final 09/17/21 11:05 Nasal Secretion SARS-CoV-2 Antigen (Rapid) - Final Meaningful Use Info Meaningful Use Diagnoses (Choose all that apply): None applicable Discharge Plan Admission Admit Date/Time: 09/02/21 15:38 Primary Reason for Your Visit: Debility due to recent craniotomy and adenocarcinoma of the lung Attending Provider: Perri Lockett Primary Care Provider: Care Physician,No Primary Consulting Providers: Jose Escobedo ; Buck Arce ; Zaira Brock SENIOR RESEARCH CONSULTANT Discharge Orders/Prescriptions Prescriptions: New levetiracetam 500 mg Tablet 500 mg PO BID Qty: 0 RF: 0 carvedilol 3.125 mg Tablet 3.125 mg PO BID Qty: 0 RF: 0 pantoprazole 20 mg Tablet,Delayed Release (Dr/Ec) 20 mg PO DAILY@0600 Qty: 1 RF: 0 sodium chloride 1,000 mg Tablet,Soluble 1,000 mg PO BID Qty: 0 RF: 0 albuterol sulfate 2.5 mg /3 mL (0.083 %) Solution For Nebulization 2.5 mg inhalation Q4HWA.RT Qty: 0 RF: 0 bisacodyl 10 mg Suppository 10 mg AL .PRN X 1 PRN (Reason: Constipation) Qty: 0 RF: 0 magnesium hydroxide 400 mg/5 mL Suspension 30 ml PO .PRN X 1 PRN (Reason: Constipation) Qty: 0 RF: 0 doxycycline monohydrate 100 mg Capsule 100 mg PO BID Qty: 0 RF: 0 enoxaparin 120 mg/0.8 mL Syringe 110 mg subcut 0800,2000 Qty: 0 RF: 0 guaifenesin [Mucus Relief ER] 600 mg Tablet Extended Release 12hr 600 mg PO BID Qty: 0 RF: 0 Emollient Combination No.72 [Eucerin Intensive Repair] 1 applic topical BID Qty: 0 RF: 0 menthol-zinc oxide [Calmoseptine] 0.44-20.6 % Ointment 1 applic topical BID@0600,2200 Qty: 0 RF: 0 sennosides-docusate sodium [Stool Softener-Stimulant Laxat] 8.6-50 mg Tablet 2 tab PO DAILY Qty: 60 RF: 0 Biotene Dry Mouth Oral Rinse Mouthwash 15 ml mucous membrane 5X/DAY PRN (Reason: Dry Mouth) Qty: 0 RF: 0 Multivitamins,Ther W-Minerals [Multivitamin With Minerals (Bkc)] 1 tab PO BREAKFAST Qty: 0 RF: 0 trazodone 50 mg Tablet 50 mg PO QHS Qty: 0 RF: 0 Continued nystatin 100,000 unit/gram Powder 1 applic TOPICAL BID RF: 0 ketoconazole 2 % Cream 1 applic TOPICAL QHS RF: 0 atorvastatin 40 mg tablet 40 mg PO QHS RF: 0 citalopram [Celexa] 20 mg tablet 20 mg PO DAILY RF: 0 flecainide 50 mg tablet See Rx Instructions .ROUTE .COMPLEX Qty: 180 RF: 3 Discontinued sodium chloride 1 gram Tablet 1,000 mg PO TID RF: 0 thiamine HCl (vitamin B1) [Vitamin B-1] 100 mg Tablet 100 mg PO DAILY RF: 0 pantoprazole [Protonix] 40 mg Tablet,Delayed Release (Dr/Ec) 40 mg PO DAILY RF: 0 dexamethasone 4 mg Tablet 4 mg PO BID RF: 0 folic acid 1 mg Tablet 1 mg PO DAILY RF: 0 levetiracetam [Keppra] 1,000 mg Tablet 1,000 mg PO BID RF: 0 lisinopril 10 mg tablet 10 mg PO QDAY Qty: 90 RF: 3 carvedilol 25 mg tablet See Rx Instructions .ROUTE .COMPLEX Qty: 180 RF: 3 Referrals / Follow Up: DR Robert Atkins [Other] - 10/01/21 10:15 am (Neurology Surgeon ) Ramon Carmona MD [NON-STAFF] - 09/22/21 10:00 am Angela Joshua DO [STAFF PHYSICIAN] - (will be going to SNF and then appt can be made after his stay here) Hima Steven DO [NON-STAFF] - (office will call to make appointment ) Cherelle Helms NP, SENIOR RESEARCH CONSULTANT-C [Nurse Practitioner] - 09/25/21 9:30 am Disposition Disposition (needs filled in before D/C Order can be placed): Shelter Facility Charges/Coding Visit Charges Inpatient E&M: 79176 Disch Hosp
--- NOTE | 2021-09-19 14:21 | CASEMGMT ---
ROSANNA completed 7000 on [employer] system. Edna Bangura WELDER EXPLOSION SENIOR PREMIUM AUDITOR
[2021-09-19 14:55] VITALS: PULSE 95; RESP 18
[2021-09-19 18:57] VITALS: PULSE 108; RESP 24
[2021-09-19 19:14] VITALS: BP 103/56; PULSE 100; RESP 16; TEMP 36.3
[2021-09-19] MEDS: Atorvastatin Calcium 40 MG Tablet PO (20:06)
[2021-09-19] MEDS: traZODone 50 MG Tablet PO (20:06)
[2021-09-19] MEDS: Ketoconazole Cream 1 APPLIC TOPICAL (20:06)
[2021-09-20] VITALS (7 sets, daily range): BP systolic 107–122; BP diastolic 68–76; PULSE 94–112; RESP 15–19; TEMP 36.8; O2SAT 92–95
[2021-09-20] MEDS: Pantoprazole Sodium 20 MG Tablet PO (06:13)
[2021-09-20] MEDS: 0.9% Saline Lock 10 ML Syringe IV (06:15)
[2021-09-20] MEDS: Nystatin Powder 15gm Bottle 1 APPLIC TOPICAL ×2 (06:16→20:50)
[2021-09-20] MEDS: Menthol/Lanolin/Calamine/Znox 113 GM Tube 1 APPLIC TOPICAL ×2 (06:17→20:47)
[2021-09-20] MEDS: Albuterol 2.5 MG/3 ML VIAL.NEB. INHALATION ×4 (07:30→19:30)
[2021-09-20] MEDS: guaiFENesin 600 MG Tablet PO ×2 (07:31→20:50)
[2021-09-20] MEDS: Citalopram 20 MG Tablet PO (07:31)
[2021-09-20] MEDS: Carvedilol 3.125 MG TABLET PO (07:31)
[2021-09-20] MEDS: Senna/Docusate Sodium 1 Tablet 2 TABLET PO (07:31)
[2021-09-20] MEDS: Multivitamins,Ther W-Minerals Tablet 1 TABLET PO (07:31)
[2021-09-20] MEDS: Flecainide 100 MG Tablet 50 MG PO ×2 (07:32→20:51)
[2021-09-20] MEDS: Sodium Chloride 1 GM Tablet PO ×2 (07:35→20:53)
[2021-09-20] MEDS: Enoxaparin 120 MG/0.8 ML Syringe 110 MG SC ×2 (07:54→20:46)
[2021-09-20] MEDS: levETIRAcetam 500 MG Tablet PO ×2 (10:32→20:49)
[2021-09-20] MEDS: Doxycycline 100 MG CAPSULE PO ×2 (10:32→20:49)
[2021-09-20] MEDS: Ferrous Sulfate 325 MG Tablet PO (11:39)
[2021-09-20] MEDS: Ascorbic Acid 500 MG Tablet 1000 MG PO (11:39)
[2021-09-20] MEDS: Carvedilol 6.25 MG Tablet PO (20:48)
[2021-09-20] MEDS: traZODone 50 MG Tablet PO (20:48)
[2021-09-20] MEDS: Atorvastatin Calcium 40 MG Tablet PO (20:50)
[2021-09-20] MEDS: Ketoconazole Cream 1 APPLIC TOPICAL (20:50)
[2021-09-21] MEDS: Pantoprazole Sodium 20 MG Tablet PO (05:58)
[2021-09-21] MEDS: Menthol/Lanolin/Calamine/Znox 113 GM Tube 1 APPLIC TOPICAL (05:58)
[2021-09-21] MEDS: Nystatin Powder 15gm Bottle 1 APPLIC TOPICAL (05:59)
[2021-09-21] MEDS: Albuterol 2.5 MG/3 ML VIAL.NEB. INHALATION (07:40)
[2021-09-21 07:45] VITALS: PULSE 99; RESP 18
[2021-09-21 07:51] VITALS: BP 127/67; PULSE 101; RESP 18; TEMP 36.6; O2SAT 94
[2021-09-21] MEDS: guaiFENesin 600 MG Tablet PO (08:07)
[2021-09-21] MEDS: Citalopram 20 MG Tablet PO (08:07)
[2021-09-21] MEDS: Sodium Chloride 1 GM Tablet PO (08:07)
[2021-09-21] MEDS: Flecainide 100 MG Tablet 50 MG PO (08:08)
[2021-09-21] MEDS: Carvedilol 6.25 MG Tablet PO (08:10)
[2021-09-21] MEDS: Multivitamins,Ther W-Minerals Tablet 1 TABLET PO (08:12)
[2021-09-21] MEDS: Enoxaparin 120 MG/0.8 ML Syringe 110 MG SC (08:12)
[2021-09-21 09:00] VITALS: BP 124/80; BP 143/90; BP 145/90; PULSE 66; PULSE 67; PULSE 77
[2021-09-21] MEDS: Doxycycline 100 MG CAPSULE PO (10:31)
[2021-09-21] MEDS: levETIRAcetam 500 MG Tablet PO (10:31)
[2021-09-21 11:00] VITALS: PULSE 98; RESP 18
[2021-09-21] MEDS: Ferrous Sulfate 325 MG Tablet PO (11:56)
[2021-09-21] MEDS: Ascorbic Acid 500 MG Tablet 1000 MG PO (11:56)
--- NOTE | 2021-09-21 12:27 | NURSING ---
Report given to [facility] and patient discharged at this time with family and family given dc summary with appt listings in packet.
== END 2021-09-21 12:30 | disposition skilled nursing facility (03) | DRG 180 ==
PROVIDERS: Admitting Provider Internal Medicine; Visit Provider Internal Medicine
DX: C34.91 Malignant neoplasm of unspecified part of right bronchus or lung (principal); J18.9 Pneumonia, unspecified organism; E22.2 Syndrome of inappropriate secretion of antidiuretic hormone; C79.51 Secondary malignant neoplasm of bone; I42.8 Other cardiomyopathies; C79.31 Secondary malignant neoplasm of brain; J44.0 Chronic obstructive pulmonary disease with (acute) lower respiratory infection; I50.32 Chronic diastolic (congestive) heart failure; D69.6 Thrombocytopenia, unspecified; I11.0 Hypertensive heart disease with heart failure; I82.462 Acute embolism and thrombosis of left calf muscular vein; I48.0 Paroxysmal atrial fibrillation; F10.21 Alcohol dependence, in remission; E78.5 Hyperlipidemia, unspecified; F32.9 Major depressive disorder, single episode, unspecified; I25.10 Atherosclerotic heart disease of native coronary artery without angina pectoris; F41.9 Anxiety disorder, unspecified; N40.0 Benign prostatic hyperplasia without lower urinary tract symptoms; F17.210 Nicotine dependence, cigarettes, uncomplicated; M21.371 Foot drop, right foot; K59.00 Constipation, unspecified; Z20.822 Contact with and (suspected) exposure to COVID-19; R73.9 Hyperglycemia, unspecified; Z23 Encounter for immunization; Z79.899 Other long term (current) drug therapy; R59.0 Localized enlarged lymph nodes
CPT/HCPCS: 0001A; 36415; 71046; 71260; 80048; 80053; 82040; 82274; 82533; 83735; 84100; 85025; 85027; 87070; 87205; 87426; 87633; 87635; 91300; 92507; 92523; 93005; 93971; 94640; 94667; 94668; 97110; 97112; 97116; 97129; 97130; 97162; 97166; 97530; 97535; 97802; 97803; 99251; 99406; Q9967; A4216; G0463; U0003; U0005

== ENCOUNTER → 2021-09-23 | Outpatient (REF) | payer SELFPAY ==
[2021-09-23 08:07] LABS: Hematocrit 36.2 % (40-54); Mean Corp Hgb Conc 33.1 g/dL (32-36); Mean Corpuscular Hgb 31.2 pg (27.0-32.0); Mean Platelet Vol. 11.3 fl (6.2-12.0); Platelet Count 188 K/mm3 (150-450); RBC Distribution Width CV 17.7 % (11.6-14.6); RBC Distribution Width SD 61.1 fl (35.1-43.9); Red Blood Count 3.85 M/mm3 (4.6-6.2); White Blood Count 5.8 K/mm3 (4.4-11.0)
[2021-09-23 08:17] LABS: Anion Gap 5 (5-15); BUN 11 mg/dL (7-18); Calcium,Total 8.5 mg/dL (8.5-10.1); Chloride 107 mmol/L (98-107); Creatinine, Serum 0.55 mg/dL (0.70-1.30); EST Glomerular Filtration Rate 155 mL/min (>60); Est Glom Filt Rate - Afr Amer 188 mL/min (>60); Glucose 103 mg/dL (74-106); Potassium 4.1 mmol/L (3.5-5.1); Sodium Level 139 mmol/L (136-145)
== END | disposition home or self-care (01) ==
LOC: OLS.SW1020 05:30
PROVIDERS: Visit Provider Family Medicine
DX: E11.9 Type 2 diabetes mellitus without complications (principal); C34.91 Malignant neoplasm of unspecified part of right bronchus or lung; C71.3 Malignant neoplasm of parietal lobe; G40.89 Other seizures; Z98.890 Other specified postprocedural states
CPT/HCPCS: 36415; 80048; 85027

== ENCOUNTER → 2021-09-24 | Outpatient (REF) | payer SELFPAY ==
[2021-09-24 08:43] LABS: Hematocrit 40.7 % (40-54); Mean Corp Hgb Conc 34.4 g/dL (32-36); Mean Corpuscular Hgb 31.7 pg (27.0-32.0); Mean Corpuscular Volume 92.3 fL (80-94); Mean Platelet Vol. 11.1 fl (6.2-12.0); Platelet Count 236 K/mm3 (150-450); RBC Distribution Width CV 17.4 % (11.6-14.6); Red Blood Count 4.41 M/mm3 (4.6-6.2); White Blood Count 6.4 K/mm3 (4.4-11.0)
[2021-09-24 09:04] LABS: ALB/GLOB Ratio 0.6 RATIO (0.9-2.4); AST(SGOT) 15 U/L (15-37); Alanine Aminotransfer ALT/SGPT 33 U/L (16-61); Albumin, Serum 2.3 g/dL (3.2-5.0); Alkaline Phosphatase 80 U/L (45-117); Anion Gap 10 (5-15); BUN 10 mg/dL (7-18); BUN/Creat Ratio 16.1 RATIO (10-20); Calcium,Total 8.8 mg/dL (8.5-10.1); Chloride 104 mmol/L (98-107); Creatinine, Serum 0.62 mg/dL (0.70-1.30); EST Glomerular Filtration Rate 135 mL/min (>60); Est Glom Filt Rate - Afr Amer 164 mL/min (>60); Globulin 4.1 g/dL (2.2-4.2); Glucose 122 mg/dL (74-106); Potassium 3.9 mmol/L (3.5-5.1); Protein, Total 6.4 g/dL (6.4-8.2); Sodium Level 137 mmol/L (136-145)
[2021-09-29 17:24] LABS: KEPPRA (LEVETIRACETAM) 7.9 ug/mL (10.0-40.0)
== END | disposition home or self-care (01) ==
LOC: OLS.SW1020 05:00
PROVIDERS: Visit Provider Family Medicine
DX: I42.9 Cardiomyopathy, unspecified (principal); C34.91 Malignant neoplasm of unspecified part of right bronchus or lung; C71.3 Malignant neoplasm of parietal lobe
CPT/HCPCS: 36415; 80053; 80177; 85027

== ENCOUNTER → 2021-10-02 | Outpatient (REF) | payer SELFPAY ==
[2021-10-02 08:03] LABS: AST(SGOT) 11 U/L (15-37); Alanine Aminotransfer ALT/SGPT 20 U/L (16-61); Albumin, Serum 2.2 g/dL (3.2-5.0); Alkaline Phosphatase 64 U/L (45-117); Bilirubin, Direct 0.16 mg/dL (0.00-0.30); Cholesterol 109 mg/dL (200); Globulin 3.4 g/dL (2.2-4.2); High Density Lipoprotein 33 mg/dL; Protein, Total 5.6 g/dL (6.4-8.2); Triglycerides 67 mg/dL; Very Low Density Lipoprotein 13 mg/dL (5-40)
[2021-10-02 09:19] LABS: BNP,B-Type NATRIURETIC PEPTIDE 189.1 pg/mL (0-100)
== END | disposition home or self-care (01) ==
LOC: OLS.SW1020 04:00
PROVIDERS: Referring Provider Family Medicine; Visit Provider Family Medicine
DX: E78.00 Pure hypercholesterolemia, unspecified (principal); I60.32 Nontraumatic subarachnoid hemorrhage from left posterior communicating artery; R06.02 Shortness of breath
CPT/HCPCS: 36415; 80061; 80076; 83880

== ENCOUNTER → 2021-10-07 | Outpatient (REF) | payer SELFPAY ==
[2021-10-10 20:05] LABS: KEPPRA (LEVETIRACETAM) 17.3 ug/mL (10.0-40.0)
== END | disposition home or self-care (01) ==
LOC: OLS.SW1020 05:00
PROVIDERS: Visit Provider Family Medicine
DX: G40.89 Other seizures (principal)
CPT/HCPCS: 36415; 80177

== ENCOUNTER → 2021-10-08 | Outpatient (REF) | payer MEDICARE, OTHER, SELFPAY ==
--- NOTE | 2021-10-08 09:30 | PET_ITS ---
PROCEDURE: WHOLE BODY PET/CT SCAN, MID SKULL TO MID THIGH REASON FOR EXAM: Secondary malignant neoplasm of the brain, right lung mass, pulmonary nodules COMPARISON EXAMINATION: Chest CT 09/17/2021, CT brain 08/20/2021. TECHNIQUE: Following the intravenous administration of 13.3 mCi of F-18 the deoxyglucose, multiplanar imaging acquisitions of the neck, chest, abdomen/pelvis to the mid thigh, obtained at 1 hour post radiopharmaceutical administration. Interpretation is with co-registeration of similar anatomic distribution of CT. Findings: Normal and physiologic distribution of radioisotope identified in the expected intensity of the hepatic and splenic parenchyma, urinary tract and gastrointestinal structures. There is gross anatomic distribution of the intracranial contents. INDEX LESION SIZE SUV INTERPRETATION: 1. Centrally necrotic mass of the right lower lobe measures 8.7 x 10.7 cm with abnormal FDG activity (SUV 13.6) predominantly along the right lateral and anterior wall. 2. Multiple additional pulmonary nodules including in the bilateral upper lobes, right middle lobe and left lower lobe. Left lower lobe nodule measures 2.1 x 2.1 cm (SUV 6.2). 3. Mediastinal adenopathy meet criteria for bilateral neoplasm including Station 4 paratracheal lymph node measuring 2.3 x 2.6 cm (SUV 9.5). Station 2R lymph node measures 2.8 x 3.1 cm (SUV 11.9). 4. Focal nodule in the posterior right pleural surface measuring 1.7 x 2.5 cm (SUV 6.4). 5. 2.1 cm left adrenal gland nodule (SUV 11.0). 1 cm nodule of the right adrenal gland (SUV 9.5). CT portion of the exam: The lungs are normal. There is no demonstrated pleural abnormality. Normal heart and pericardium. There are calcifications of the coronary arteries. Normal unenhanced pulmonary arteries. There is atherosclerotic calcification of the aortic arch with tortuosity and elongation of the aortic arch and descending thoracic aorta. Normal liver. Normal gallbladder and extrahepatic biliary system. Normal spleen. Normal pancreas. Normal right kidney. Normal left kidney. Normal visualized stomach. Normal small intestine. There are multiple colonic diverticula consistent with diverticulosis. There is non-visualization of the appendix. There is diffuse atherosclerotic calcification of the abdominal aorta, without a demonstrated aneurysm. There is an IVC filter in place. Small bladder diverticulum. Right hip replacement. PET/PET/CT Tumor Base -Thigh Init IMPRESSION: 1. ABNORMAL EXAMINATION. Right lower lobe mass the criteria for viable neoplasm. Mediastinal adenopathy, bilateral pulmonary nodules, bilateral adrenal gland nodules and right pleural nodule meet criteria for viable neoplasm/metastasis. 2. Chronic changes, as detailed above. Electronically Signed: Pedro Avila MD (Brooks) at 10:07 EDT Reading Location ID and State: [facility] / [place] , Service support ,
== END ==
LOC: ONC 08:53
PROVIDERS: Referring Provider Internal Medicine Medical Oncology; Visit Provider Internal Medicine Medical Oncology
DX: C34.31 Malignant neoplasm of lower lobe, right bronchus or lung (principal); C79.31 Secondary malignant neoplasm of brain
CPT/HCPCS: 78815; A9588

== ENCOUNTER → 2021-10-22 | Outpatient (REF) | payer SELFPAY ==
[2021-10-22 09:17] LABS: Absolute Lymphocyte Count 0.98 X10^3/uL (0.83-4.51); Absolute Neutrophil Count 9.6 X10^3/uL (2.0-7.7); Basophil# 0.06 X10^3/uL; Basophil% 0.5 % (0-1); Eosinophil# 0.11 X10^3/uL; Eosinophils% 0.9 % (0-5); Hematocrit 38.5 % (40-54); Hemoglobin 12.3 g/dL (13.0-16.5); Lymphocyte # 0.98 X10^3/ul (0.83-4.51); Lymphocyte % 8.4 % (19-41); Mean Corp Hgb Conc 31.9 g/dL (32-36); Mean Corpuscular Hgb 31.1 pg (27.0-32.0); Mean Corpuscular Volume 97.5 fL (80-94); Monocyte# 0.84 X10^3/uL; Monocyte% 7.2 % (0-10); NRBC Flagged by Analyzer 0 % (0-5); Neutrophil # 9.64 X10^3/uL (2.7-7.7); Neutrophil % 82.2 % (47-70); Platelet Count 321 K/mm3 (150-450); RBC Distribution Width CV 17.7 % (11.6-14.6); RBC Distribution Width SD 63.1 fl (35.1-43.9); Red Blood Count 3.95 M/mm3 (4.6-6.2); White Blood Count 11.7 K/mm3 (4.4-11.0)
[2021-10-22 09:31] LABS: ALB/GLOB Ratio 0.6 RATIO (0.9-2.4); AST(SGOT) 8 U/L (15-37); Alanine Aminotransfer ALT/SGPT 20 U/L (16-61); Albumin, Serum 2.2 g/dL (3.2-5.0); Alkaline Phosphatase 62 U/L (45-117); Anion Gap 7 (5-15); BUN 12 mg/dL (7-18); BUN/Creat Ratio 21.3 RATIO (10-20); Calcium,Total 8.8 mg/dL (8.5-10.1); Chloride 104 mmol/L (98-107); Creatinine, Serum 0.56 mg/dL (0.70-1.30); EST Glomerular Filtration Rate 151 mL/min (>60); Est Glom Filt Rate - Afr Amer 182 mL/min (>60); Globulin 3.8 g/dL (2.2-4.2); Glucose 113 mg/dL (74-106); Potassium 3.9 mmol/L (3.5-5.1); Sodium Level 138 mmol/L (136-145)
== END | disposition home or self-care (01) ==
LOC: OLS.SW1020 05:00
PROVIDERS: Visit Provider Family Medicine
DX: C71.3 Malignant neoplasm of parietal lobe (principal); I50.9 Heart failure, unspecified; E11.9 Type 2 diabetes mellitus without complications
CPT/HCPCS: 36415; 80053; 85025